=== PATIENT | female | born 1985 | race Hispanic/Latino ===

== ENCOUNTER 2016-12-20 08:09 | Emergency (ER) | payer MEDICAID ==
[2016-12-20 08:10] VITALS: BMI 22.3
[2016-12-20 08:19] VITALS: RESP 18
[2016-12-20 08:28] VITALS: O2SAT 98
[2016-12-20 08:51] LABS: URINE BILIRUBIN NEGATIVE (NEGATIVE); URINE BLOOD NEGATIVE (NEGATIVE); URINE GLUCOSE (UA) NEGATIVE (NEGATIVE); URINE KETONE 40 mg/dL (NEGATIVE); URINE LEUKOCYTE ESTERASE TRACE Leu/uL (NEGATIVE); URINE PROTEIN TRACE mg/dL (<30 mg/dL)
[2016-12-20 08:52] LABS: URINE APPEARANCE SL CLOUDY (CLEAR); URINE COLOR YELLOW (YELLOW)
[2016-12-20] MEDS ORDERED: Albuterol-Ipratrop 3 mg / 0.5 (3 ml) UD IH STA (09:00)
[2016-12-20 09:04] LABS: URINE WBC 0 - 2 /hpf (0-6)
[2016-12-20 09:05] LABS: URINE BACTERIA MOD (NEG); URINE CALCIUM OXALATE CRYSTALS OCC /hpf; URINE RBC 0 - 2 /hpf (0-2)
--- NOTE | 2016-12-20 09:05 | ED PDOC ---
Arrival/HPI - General Historian: Patient - History of Present Illness Time/Duration: > week Symptom Course: Worsening Quality: Cramping Severity Level: 6 - General Chief Complaint: Abdominal Pain Time Seen by Provider: 12/20/16 08:13 - History of Present Illness Narrative History of Present Illness (Text): 12/20/16 09:05 31 yo F w h/o Asthma, IVDA (heroin and cocaine - quit 1 month ago), Hep C, Bipolar disorder ~12weeks by LMP (09/12/16), presented to ED with c/o 3 week h/o intermittent lower abdominal cramping and spotting. Pain worsened 2 days ago and patient states she is more uncomfortable with ambulation and stretching. Patient states she passed small blood clots yesterday while urinating, and does not believe they were vaginal clots. Patient denies CP, SOB , n/v/d/c, fevers, chills, rashes. Patient admits to still actively smoking tobacco, states she stopped IVDA ~1 month ago. (Bell Baeza) Past Medical History - Provider Review Nursing Documentation Reviewed: Yes - Travel History Have you recently traveled outside [place] w/in the past 3 mons?: No - Past History Past History: No Previous - Infectious Disease Hx of Infectious Diseases: None - Tetanus Immunization Tetanus Immunization: Unknown - Cardiac Hx Cardiac Disorders: No Hx Cardiac Arrhythmia: No - Pulmonary Hx Respiratory Disorders: Yes Hx Asthma: Yes Hx Bronchitis: Yes Hx Chronic Obstructive Pulmonary Disease (COPD): No Hx Emphysema: No - Neurological Hx Neurological Disorder: No HX Cerebrovascular Accident: No Hx Seizures: No - HEENT Hx HEENT Disorder: No - Renal Hx Renal Disorder: No - Endocrine/Metabolic Hx Endocrine Disorders: No - Hematological/Oncological Hx Blood Disorders: No Hx Hepatitis C: Yes - Integumentary Hx Dermatological Disorder: No - Musculoskeletal/Rheumatological Hx Musculoskeletal Disorders: No - Gastrointestinal Hx Gastrointestinal Disorders: No - Genitourinary/Gynecological Hx Genitourinary Disorders: No Hx Sexually Transmitted Diseases: No - Psychiatric Hx Psychophysiologic Disorder: Yes Hx Anxiety: Yes Hx Depression: Yes Hx Substance Use: No - Past Surgical History Past Surgical History: No Previous - Surgical History Other/Comment: "bladder surgery during childhood" - Anesthesia Hx Anesthesia Reactions: No Hx Malignant Hyperthermia: No - Suicidal Assessment Feels Threatened In Home Enviroment: No Family/Social History Family/Social History: No Known Family HX Smoking Status: Heavy Smoker > 10 Cigarettes Daily Hx Alcohol Use: No Hx Substance Use: No Substance used: heroin, opiate user - pt stopped using approximately one month Amount: 4 Hx Substance Use Treatment: No Allergies/Home Meds Allergies/Adverse Reactions: Allergies Cephalosporins Allergy (Verified 12/20/16 08:19) SWELLING Home Medications: Home Meds Medication Instructions Recorded Confirmed Albuterol HFA [Ventolin HFA 90 2 puff IH PRN PRN 12/20/16 12/20/16 mcg/actuation (8 g)] Montelukast [Singulair] 10 mg PO DAILY 12/20/16 12/20/16 Review of Systems - Physician Review All systems were reviewed & negative as marked: Yes - Review of Systems Constitutional: Normal. absent: Fatigue Eyes: absent: Vision Changes Respiratory: absent: SOB (h/o asthma, no worsenend SOB), Cough Cardiovascular: absent: Chest Pain, Palpitations, Calf Pain, V[place]VA Gastrointestinal: Abdominal Pain (lower). absent: Constipation, Diarrhea, Nausea, Vomiting Genitourinary Female: Vaginal Bleeding (spotting). absent: Dysuria Musculoskeletal: absent: Back Pain Skin: absent: Rash, Skin Lesions Neurological: absent: Headache, Dizziness Physical Exam Temperature: Afebrile Blood Pressure: Normal Pulse: Regular Respiratory Rate: Normal Appearance: Positive for: Well-Appearing, Non-Toxic, Comfortable Pain Distress: None Mental Status: Positive for: Alert and Oriented X 3 - Systems Exam Head: Present: Atraumatic, Normocephalic Pupils: Present: PERRL Extroacular Muscles: Present: EOMI Conjunctiva: Present: Normal Ears: Present: Normal Mouth: Present: Moist Mucous Membranes Neck: Present: Normal Range of Motion. No: Meningeal Signs, JVD Respiratory/Chest: Present: Good Air Exchange, Wheezes (mild diffuse end-exp). No: Clear to Auscultation, Respiratory Distress, Accessory Muscle Use, Rales, Rhonchi Cardiovascular: Present: Regular Rate and Rhythm, Normal S1, S2. No: Murmurs Abdomen: Present: Tenderness (suprapubic), Normal Bowel Sounds. No: Distention , Peritoneal Signs, Rebound, Guarding, McBurney's Point Tender Genitourinary/Pelvic Exam: Present: Normal External Genitalia, Cervical os Closed. No: Vaginal Bleeding, Cervical Motion Tendernes Back: No: CVA Tenderness Upper Extremity: Present: Normal Inspection, NORMAL PULSES, Capillary Refill < 2s. No: Cyanosis, Edema Lower Extremity: Present: Normal Inspection, NORMAL PULSES, Neurovascularly Intact. No: Edema, CALF TENDERNESS Neurological: Present: GCS=15, CN II-XII Intact, Speech Normal Skin: Present: Warm, Dry, Normal Color. No: Rashes Psychiatric: Present: Alert, Oriented x 3, Normal Concentration Vital Signs Temp Pulse Resp BP Pulse Ox 12/20/16 11:02 79 18 114/68 98 12/20/16 09:29 97.8 F 89 18 112/61 98 12/20/16 08:28 97.1 F L 90 18 114/64 98 12/20/16 08:12 97.1 F L 90 18 114/64 100 Medical Decision Making - Lab Interpretations I have reviewed the lab results: Yes ED Course and Treatment: Patient seen and examined with resident Came up with treatment and disposition plan with resident A 31 year old female with intermittent lower abdominal cramping and vaginal spotting. In agreement with resident note, which includes further HPI details. Patient had no blood noted on speculum examination and no vaginal bleeding in the ER US IMPRESSION: Single live intrauterine gestation of approximately 16 weeks 1 day gestational age by ultrasound. Anterior placenta. No evidence of placenta previa. Cervix long and closed. Normal amniotic fluid volume. Please note that the head circumference/abdominal circumference ratio is above the normal range. Followup during 2nd trimester is advised. Full anatomic evaluation is advised at approximately 20 weeks gestational age. Incidentally noted 2 uterine fibroids. On discharge, pt states she understands to return to the ER right away for new or worsening symptoms or for inability to f/u with PMD or specialist as instructed. Patient states that she fully agrees with and understands discharge instructions. States that she agrees with the plan and disposition. Verbalized and repeated discharge instructions and plan. I have given the patient opportunity to ask any additional questions. (Pollo Olvera) 12/20/16 09:32 31 yo F w h/o Asthma, IVDA (heroin and cocaine - quit 1 month ago), Hep C, Bipolar disorder ~12weeks by LMP (09/12/16) presented with lower abdominal pain and vaginal spotting. UA, C&S, transvaginal US with age estimation, chlamydia and gonorrhea RNA, labs, quant bHCG. Duonebs for wheezing, IVF. Patient extensively counseled regarding need for immediate smoking cessation for cardiovascular and overall health protection as well as wellbeing. Instructed to take vitamins and maintain abstinence from IV drugs for health and development. 12/20/16 11:39 US shows since viable intrauterine gestation ~16 weeks 1 day, anterior placenta, no evidence of placenta previa, cervix long and closed, normal amniotic fluid volume, head/abdominal circumference ration above normal range, 2 incidental uterine fibroids noted. Patient re-evaluated. States she no longer has any abdominal pain. Denies CP, SOB, n/v. 12/20/16 11:43 UTI diagnosis discussed. All questions answered. 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 (Bell Baeza) - Lab Interpretations Lab Results: 12/20/16 10:50 12/20/16 10:50 Lab Results 12/20/16 10:50: WBC 6.7, RBC 4.40, Hgb 9.4 L, Hct 28.6 L, MCV 65.0 L, MCH 21.4 L , MCHC 32.9, RDW 16.1 H, Plt Count 232, MPV 8.5, Gran % 56.9, Lymph % (Auto) 32.4, [place] % (Auto) 7.0 H, Eos % (Auto) 3.6, Baso % (Auto) 0.1, Gran # 3.81, Lymph # 2.2, [place] # 0.5, Eos # 0.2, Baso # 0.01, PT 10.6, INR 0.98, APTT 30.2, Sodium 130 L, Potassium 3.7, Chloride 97 L, Carbon Dioxide 27, Anion Gap 10, BUN 3 L, Creatinine 0.5, Est GFR ( Amer) > 60, Est GFR (Non-Af Amer) > 60 , Random Glucose 86, Calcium 8.4, Total Bilirubin 0.4, AST 22, ALT 28, Alkaline Phosphatase 72, Total Protein 6.5, Albumin 3.2, Globulin 3.4, Albumin/Globulin Ratio 0.9 L, Beta HCG, Quant 02153.00 H, Blood Type O POSITIVE, Antibody Screen Negative, BBK History Checked Patient has bt 12/20/16 08:00: Urine Color Yellow, Urine Appearance Sl cloudy, Urine pH 6.0, Ur Specific [place] 1.025, Urine Protein Trace H, Urine Glucose (UA) Negative, Urine Ketones 40 H, Urine Blood Negative, Urine Nitrate Positive H, Urine Bilirubin Negative, Urine Urobilinogen 1.0 H, Ur Leukocyte Esterase Trace H, Urine RBC 0 - 2, Urine WBC 0 - 2, Ur Epithelial Cells 6 - 8, Calcium Oxalate Crystal Occ, Urine Bacteria Mod - RAD Interpretation Radiology Orders: 12/20/16 08:35 AGE [US] Stat - Medication Orders Current Medication Orders: Discontinued Medications Albuterol/Ipratropium (Duoneb 3 Mg/0.5 Mg (3 Ml) Ud) 3 ml IH STAT STA Stop: 12/20/16 09:01 Last Admin: 12/20/16 09:29 Dose: 3 ML Sodium Chloride (Sodium Chloride 0.9%) 1,000 mls @ 999 mls/hr IV .Q1H1M STA Stop: 12/20/16 10:34 Disposition/Present on Arrival - Present on Arrival Any Indicators Present on Arrival: No History of DVT/PE: No History of Uncontrolled Diabetes: No Urinary Catheter: No History of Decub. Ulcer: No History Surgical Site Infection Following: None - Disposition Have Diagnosis and Disposition been Completed?: Yes Disposition Time: 11:00 - Disposition Diagnosis: UTI (urinary tract infection), Smoker Disposition: HOME/ ROUTINE Condition: STABLE Discharge Instructions (ExitCare): Effects of Smoking, Alcohol, and Medicines on (ED), How to Stop Smoking (ED), Urinary Tract Infection in Women (ED) Print Language: MALTESE Additional Instructions: Please followup with your primary care physician within 1-3 days. Please followup with Obsterics/gynecology within 1-2 days. As per earlier conversations, please refrain from tobacco, etOH and drug use especially while . Prescriptions: Nitrofurantoin Macrocrystal [Nitrofurantoin] 100 mg PO BID #10 capsule Referrals: Ora Tavera MD [Primary Care Provider] - Follow up with primary Ban Jeronimo MD [Staff Provider] - Follow up with primary
[2016-12-20 09:30] VITALS: TEMP 97.8
[2016-12-20] MEDS ORDERED: Sodium Chloride 0.9% 1,000 ML IV STA (09:34)
--- NOTE | 2016-12-20 10:46 | US ---
PROCEDURE: Obstetrical ultrasound examination HISTORY: , bleeding COMPARISON: Not available TECHNIQUE: Transabdominal FINDINGS: The examination demonstrates a single live intrauterine gestation in variable presentation. heart rate is 139 beats per minute. The cervix is long and closed, measuring 5.3 cm. Grossly normal amniotic fluid volume. Anterior placenta. No evidence placenta previa. biometry yields a gestational age of 16 weeks 1 day. The DORIS by ultrasound is 06/05/2017. The EFW is 129.18 g. please note that the head circumference/abdominal circumference ratio is above normal range. Followup evaluation during 2nd trimester is advised. Please note that anatomic evaluation is not performed at this time. Recommend full anatomic evaluation at 20 weeks gestational age. Note is made of 2 uterine fibroids. There is an anterior lower uterine segment fibroid, 3.1 x 3.4 x 3.5 cm. There is a midline lower uterine segment fibroid, 6.3 x 7.7 x 8.7 cm. The right ovary is not visualized. The left ovary measures 2.5 x 2.6 x 2.9 cm. Normal flow is demonstrated. IMPRESSION: Single live intrauterine gestation of approximately 16 weeks 1 day gestational age by ultrasound. Anterior placenta. No evidence of placenta previa. Cervix long and closed. Normal amniotic fluid volume. Please note that the head circumference/abdominal circumference ratio is above the normal range. Followup during 2nd trimester is advised. Full anatomic evaluation is advised at approximately 20 weeks gestational age. Incidentally noted 2 uterine fibroids.
[2016-12-20 10:58] LABS: ADD MANUAL DIFF? NO
[2016-12-20 11:02] VITALS: BP 114/68; PULSE 79
[2016-12-20 11:05] LABS: BASO # 0.01 K/mm3 (0.0-2.0); BASO % 0.1 % (0.0-3.0); EOS # 0.2 (0.0-0.7); EOS % 3.6 % (1.5-5.0); GRAN # 3.81 (1.4-6.5); GRAN % 56.9 % (50.0-68.0); HEMATOCRIT 28.6 % (36.0-48.0); LYMPH # 2.2 (1.2-3.4); LYMPH % 32.4 % (22.0-35.0); MEAN CORPUSCULAR HEMOGLOBIN 21.4 pg (25.0-35.0); MEAN CORPUSCULAR HGB CONC 32.9 g/dl (31.0-37.0); MEAN PLATELET VOLUME 8.5 fl (7.0-11.0); MONO # 0.5 (0.1-0.6); PLATELET COUNT 232 10^3/uL (120.0-450.0); RED CELL DISTRIBUTION WIDTH 16.1 % (11.5-14.5); WHITE BLOOD COUNT 6.7 10^3/ul (4.5-11.0)
[2016-12-20 11:10] LABS: INR 0.98 (0.93-1.08); PARTIAL THROMBOPLASTIN TIME 30.2 Seconds (23.7-30.8)
[2016-12-20 11:12] LABS: ALB/GLOB RATIO 0.9 (1.1-1.8); ALKALINE PHOSPHATASE 72 U/L (38-133); ALT/SGPT 28 U/L (7-56); AST/SGOT 22 U/L (15-39); BILIRUBIN,TOTAL 0.4 mg/dL (0.2-1.3); BLOOD UREA NITROGEN 3 mg/dL (7-21); CALCIUM 8.4 mg/dL (8.4-10.5); CARBON DIOXIDE 27 mmol/L (21-33); CHLORIDE 97 mmol/L (98-107); GFR AFRICAN-AMERICAN > 60; GLUCOSE,RANDOM 86 mg/dL (70-110); POTASSIUM 3.7 mmol/L (3.6-5.0); SODIUM 130 mmol/L (132-148); TOTAL PROTEIN 6.5 g/dL (5.8-8.3)
== END 2016-12-20 12:00 | disposition home or self-care (01) ==
LOC: ED 08:09
DX: N39.0 Urinary tract infection, site not specified (principal); F17.210 Nicotine dependence, cigarettes, uncomplicated

== ENCOUNTER 2016-12-27 21:56 | Emergency (ER) | payer MEDICAID ==
[2016-12-27 22:11] VITALS: RESP 20; O2SAT 99; BMI 21.2
--- NOTE | 2016-12-27 22:13 | ED PDOC ---
Arrival/HPI - History of Present Illness Time/Duration: 24 hours Symptom Onset: Gradual Symptom Course: Worsening Quality: Aching, Tightness, Stabbing Severity Level: 9 Activities at Onset: Light <Bell Baeza - Last Filed: 12/28/16 00:16> <Pollo Olvera - Last Filed: 12/28/16 04:37> - General Chief Complaint: Female Genitourinary Time Seen by Provider: 12/27/16 22:02 - History of Present Illness Narrative History of Present Illness (Text): 12/27/16 22:22 31 yo F w h/o Asthma, IVDA (heroin and cocaine - relapsed within the past week) , Hep C, Bipolar disorder 17 weeks 1 day by US 12/20, presented to ED with c/o 1 day h/o lower abdominal cramping and vaginal bleeding since this evening. Patient was seen in this ER one week ago (12/20/2016) for lower abdominal cramping and light spotting and discharged with UTI dx on Nitrofurantoin and instructions to followup with her PMD and obstetrics. Patient states she has not been taking her antibiotics regularly and has not followed up; attempted to obtain elective but was unable to do so because she was told she had masses in her uterus (2 fibroids seen on Transvaginal US 12/20). Patient states she was not using drugs during the prior month but relapsed 1 week ago and has been using IV heroin and cocaine. She admits to intermittent fevers and chills for the past day, 2 episodes of non- bloody emesis, and passing blood clots with vaginal blood. She denies CP, SOB, diarrhea, constipation, rashes, edema. (Bell Baeza) Past Medical History - Provider Review Nursing Documentation Reviewed: Yes - Travel History Have you recently traveled outside [place] w/in the past 3 mons?: No - Past History Past History: No Previous - Infectious Disease Hx of Infectious Diseases: None - Tetanus Immunization Tetanus Immunization: Unknown - Cardiac Hx Cardiac Disorders: No Hx Cardiac Arrhythmia: No - Pulmonary Hx Respiratory Disorders: Yes Hx Asthma: Yes Hx Bronchitis: Yes Hx Chronic Obstructive Pulmonary Disease (COPD): No Hx Emphysema: No - Neurological Hx Neurological Disorder: No HX Cerebrovascular Accident: No Hx Seizures: No - HEENT Hx HEENT Disorder: No - Renal Hx Renal Disorder: No - Endocrine/Metabolic Hx Endocrine Disorders: No - Hematological/Oncological Hx Blood Disorders: No Hx Hepatitis C: Yes - Integumentary Hx Dermatological Disorder: No - Musculoskeletal/Rheumatological Hx Musculoskeletal Disorders: No - Gastrointestinal Hx Gastrointestinal Disorders: No - Genitourinary/Gynecological Hx Genitourinary Disorders: No Hx Sexually Transmitted Diseases: No - Psychiatric Hx Psychophysiologic Disorder: Yes Hx Anxiety: Yes Hx Depression: Yes Hx Substance Use: No - Past Surgical History Past Surgical History: No Previous - Surgical History Other/Comment: "bladder surgery during childhood" - Anesthesia Hx Anesthesia: No Hx Anesthesia Reactions: No Hx Malignant Hyperthermia: No - Suicidal Assessment Feels Threatened In Home Enviroment: No <Bell Baeza - Last Filed: 12/28/16 00:16> Family/Social History Family/Social History: Hypertension, CAD/MT Smoking Status: Heavy Smoker > 10 Cigarettes Daily Hx Alcohol Use: No Hx Substance Use: No Substance used: heroin, opiate user - pt stopped using approximately one month Amount: 4 Hx Substance Use Treatment: No <Bell Baeza - Last Filed: 12/28/16 00:16> Allergies/Home Meds <Bell Baeza - Last Filed: 12/28/16 00:16> <Pollo Olvera - Last Filed: 12/28/16 04:37> Allergies/Adverse Reactions: Allergies Cephalosporins Allergy (Verified 12/20/16 08:19) SWELLING Home Medications: Home Meds Medication Instructions Recorded Confirmed Albuterol HFA [Ventolin HFA 90 2 puff IH PRN PRN 12/20/16 12/20/16 mcg/actuation (8 g)] Montelukast [Singulair] 10 mg PO DAILY 12/20/16 12/20/16 Review of Systems - Physician Review All systems were reviewed & negative as marked: Yes - Review of Systems Constitutional: Fevers. absent: Fatigue Eyes: absent: Vision Changes, Photophobia ENT: Normal Respiratory: Cough (nonproductive, ). absent: SOB, Sputum Cardiovascular: absent: Chest Pain, Palpitations, Edema, Calf Pain, VILLANUEVA Gastrointestinal: Abdominal Pain (lower cramping), Nausea, Vomiting, Anorexia. absent: Constipation, Diarrhea, Hematochezia, Hematemesis Genitourinary Female: Vaginal Bleeding (with clots). absent: Dysuria, Frequency , Hematuria Skin: absent: Rash, Skin Lesions Neurological: absent: Headache, Dizziness Endocrine: absent: Diaphoresis, Polyuria, Polydipsia Hemo/Lymphatic: absent: Easy Bleeding, Easy Bruising <Bell Baeza - Last Filed: 12/28/16 00:16> Physical Exam Vital Signs Reviewed: Yes Temperature: Febrile (low-grade 100F) Blood Pressure: Normal Pulse: Tachycardic Respiratory Rate: Normal Appearance: Positive for: Non-Toxic, Uncomfortable Pain Distress: Mild Mental Status: Positive for: Alert and Oriented X 3 - Systems Exam Head: Present: Atraumatic, Normocephalic Pupils: Present: PERRL Extroacular Muscles: Present: EOMI Conjunctiva: Present: Normal Ears: Present: Normal Mouth: Present: Dry Neck: Present: Normal Range of Motion. No: Meningeal Signs, JVD Respiratory/Chest: Present: Clear to Auscultation, Good Air Exchange. No: Respiratory Distress, Accessory Muscle Use, Wheezes, Rhonchi Cardiovascular: Present: Regular Rate and Rhythm, Normal S1, S2, Peripheal Pulses Present. No: Murmurs, Irregular Rhythm, Tachycardic (130s during triage -- 80s during physician exam) Abdomen: Present: Tenderness (lower abdomen), Normal Bowel Sounds. No: Distention, Peritoneal Signs Back: No: CVA Tenderness Upper Extremity: Present: Normal Inspection. No: Cyanosis, Edema Lower Extremity: Present: Normal Inspection. No: Edema Neurological: Present: GCS=15, CN II-XII Intact, Speech Normal Skin: Present: Warm, Dry, Normal Color. No: Rashes Psychiatric: Present: Alert, Oriented x 3, Normal Concentration <Bell Baeza - Last Filed: 12/28/16 00:16> Vital Signs Temp Pulse Resp BP Pulse Ox 12/27/16 23:41 99.9 F H 101 H 20 111/83 99 12/27/16 22:55 100.0 F H 12/27/16 22:03 100 F H 134 H 20 121/80 99 Medical Decision Making Re-evaluation Time: 23:35 Reassessment Condition: Improved - Lab Interpretations I have reviewed the lab results: Yes <Bell Baeza - Last Filed: 12/28/16 00:16> - RAD Interpretation Shoeshiner: Radiologist <NonarichyPollo - Last Filed: 12/28/16 04:37> ED Course and Treatment: 12/27/16 22:38 31 yo F with h/o active IVDA, tobacco abuse, asthma and bipolar disorder, 17weeks presents with worsening lower abdominal pain and cramping and significant vaginal bleeding x 1 day. Patient has low-grade temp 100F, HD stable. Plan: Transvag US CBC, CMP, Type and Screen, blood cultures, coags, UA, UDS Tylenol IVF 12/27/16 23:37 US shows approx 16weeks 6 day viable intrauterine , closed cervical os, anterior placenta, no sign of abruption. Patient refuses pelvic exam at this time. 12/27/16 23:[address] Jeronimo, Gynecology plastics fabrication supervisor. Case thoroughly discussed. Dr. Jeronimo recommends immediate drug and tobacco abuse cessation, does not indicate any need for antibiotics at this time, silk screen repairer followup within 1-2 days. She feels as the patient's symptoms may be due to early placental abruption, however not much to do at this time since the patient continues to refuse pelvic exam. Recommends discharge with outpatient silk screen repairer followup. 12/28/16 00:06 Patient is clinically sober, has normal insight into her condition, boyfriend and friend at bedside. States her pain has slightly improved, bleeding marginally improved since this morning. Discussed clinical findings, thoroughly counseled regarding need for immediate smoking and drug abuse cessation. Patient still refuses pelvic examination, refuses further treatment, and refuses to sign AMA paperwork. RN at bedside and aware. Patient left AMA without signing paperwork. (Bell Baeza) 12/27/16 22:56 Patient seen and examined with resident. Came up with treatment and disposition plan with resident. Patient is a 31 year old, 17 wk 1d female who presents to the emergency department complaining of 1 day duration of lower abdominal cramps and vaginal bleeding. Patient with a history of IV drug use, started using again 1 week prior. Patient attempted to obtain an , but was unable due to uterine fibroids. Ordered drug screen, urinalysis, ultrasound, and blood culture. 12/28/16 00:27 US shows live intrauterine . Case was discussed in detail with the OB plastics fabrication supervisor who was concerned about a possible placenta abruption, but treatment limited because patient is refusing a pelvic exam. Patient and boyfriend want to sign out against medical advice. I've strongly urged them to stay in the hospital for the completion of treatment, but they verbalized their understanding of the risks of the the hospital and are adamant in their decision. Advised patient was advised to immediately stop tobacco/illicit substance use. Advised patient to present back to emergency department for any worsening symptoms. The patient is choosing to leave against medical advice. I have personally explained to the patient that choosing to do so may result in permanent bodily harm or to herself or her baby. I have discussed at great length that without further evaluation and monitoring there may be unforeseen circumstances and/or deterioration causing permanent bodily harm or as a result of their choice. The patient is alert, oriented, and shows the mental capacity to make clear decisions regarding the patients health care at this time. The patient continues to wish to leave against medical advice. The patient has been advised that they should return to the emergency room immediately if they change their mind at any time, or if their condition begins to change or worsen in any way. (Pollo Olvera) - Lab Interpretations Lab Results: 12/27/16 22:47 12/27/16 22:47 Lab Results 12/27/16 23:30: Urine Color Light red, Urine Appearance Cloudy, Urine pH 6.5, Ur Specific [place] 1.025, Urine Protein >=300 H, Urine Glucose (UA) Negative, Urine Ketones >=80, Urine Blood Large H, Urine Nitrate Positive H, Urine Bilirubin Negative, Urine Urobilinogen 4.0 H, Ur Leukocyte Esterase Moderate H, Urine RBC 25 - 30, Urine WBC 15 - 20, Ur Epithelial Cells 0 - 2, Urine Bacteria Mod, Urine Opiates Screen Positive H, Urine Methadone Screen Negative, Ur Barbiturates Screen Negative, Ur Phencyclidine Scrn Negative, Ur Amphetamines Screen Negative, U Benzodiazepines Scrn Negative, U Oth Cocaine Metabols Positive H, U Cannabinoids Screen Negative 12/27/16 22:47: WBC 11.2 H D, RBC 5.01, Hgb 10.8 L, Hct 32.2 L, MCV 64.3 L, MCH 21.6 L, MCHC 33.5, RDW 15.8 H, Plt Count 316, MPV 8.8, Gran % 80.6 H, Lymph % ( Auto) 15.9 L, Campbell % (Auto) 3.0, Eos % (Auto) 0.4 L, Baso % (Auto) 0.1, Gran # 9.01 H, Lymph # 1.8, Campbell # 0.3, Eos # 0.1, Baso # 0.01, PT 10.4, INR 0.96, APTT 32.2 H, Sodium 131 L, Potassium 4.2, Chloride 94 L, Carbon Dioxide 26, Anion Gap 15, BUN 5 L, Creatinine 0.5, Est GFR ( Amer) > 60, Est GFR (Non -Af Amer) > 60, Random Glucose 78, Calcium 8.9, Total Bilirubin 0.7, AST 22, ALT 21, Alkaline Phosphatase 124, Total Protein 7.8, Albumin 3.6, Globulin 4.2, Albumin/Globulin Ratio 0.9 L, Blood Type O POSITIVE, Antibody Screen Negative, BBK History Checked Patient has bt - RAD Interpretation Narrative RAD Interpretations (Text): EXAM: US After First Trimester, Transabdominal FINDINGS: Fetus: Transverse and position. Heart rate measured at 169 bpm. No anatomic evaluation performed on this study. Placenta: Anterior. No evidence of abruption. BIOMETRICS Gestational age by US: 16 weeks 6 days +/- 1 week 1 day EFW: 6 oz +/- 1 oz BPD: 3.5 cm HC: 13.3 cm AC: 10.8 cm FL: 2.2 cm MATERNAL: Uterus: Fibroids measured at 3.8 cm in region of anterior lower uterine segment and 8.2 cm in lower uterine segment. Cervix: Measured at 5.6 cm. Closed. Adnexa: Right ovary not visualized. Unremarkable evaluation of the left ovary. Free fluid: No free fluid. IMPRESSION: Live intrauterine with details as above. (Pollo Olvera) Radiology Orders: 12/27/16 22:19 AGE [US] Stat - Medication Orders Current Medication Orders: Discontinued Medications Acetaminophen (Tylenol 325mg Tab) 650 mg PO STAT STA Stop: 12/27/16 22:21 Last Admin: 12/27/16 22:55 Dose: 650 MG MAR Pain/Vitals Document 12/27/16 22:55 SB (Rec: 12/27/16 22:56 SB [facility] [place]-[id number]) Pain Reassessment Is This A Pain ReAssessment? No Sleep Is patient sleeping during reassessment? No Presence of Pain Presence of Pain Yes Pain Scale Used Pain Scale Used Numeric Location Upper or Lower Lower Pain Location Body Site Abdomen Vitals Temperature (97.6 F-99.6 F) 100.0 F Temperature Source Oral Sodium Chloride (Sodium Chloride 0.9%) 1,000 mls @ 999 mls/hr IV .Q1H1M STA Stop: 12/27/16 23:20 Last Admin: 12/27/16 22:55 Dose: 999 MLS/HR eMAR Start Stop Document 12/27/16 22:55 SB (Rec: 12/27/16 22:55 SB [facility] [place]-[id number]) Intravenous Solution Start Date 12/27/16 Start Time 22:55 End Date 12/27/16 <Bell Baeza - Last Filed: 12/28/16 00:16> - PA / STORE CLERK / Resident Statement [facility] has reviewed & agrees with the documentation as recorded. / has examined the patient and agrees with the treatment plan. <Pollo Olvera - Last Filed: 12/28/16 04:37> - Scribe Statement Ed Hernandez Provider Scribe Attestation: All medical record entries made by the Scribe were at my direction and personally dictated by me. I have reviewed the chart and agree that the record accurately reflects my personal performance of the history, physical exam, medical decision making, and the department course for this patient. I have also personally directed, reviewed, and agree with the discharge instructions and disposition. (Pollo Olvera) Disposition/Present on Arrival - Present on Arrival Any Indicators Present on Arrival: No History of DVT/PE: No History of Uncontrolled Diabetes: No Urinary Catheter: No History of Decub. Ulcer: No History Surgical Site Infection Following: None - Disposition Have Diagnosis and Disposition been Completed?: Yes Disposition Time: 00:09 Patient Plan: Discharge <Bell Baeza - Last Filed: 12/28/16 00:16> <Pollo Olvera - Last Filed: 12/28/16 04:37> - Disposition Diagnosis: Vaginal bleeding before 22 weeks gestation, Cocaine abuse affecting , Tobacco abuse Disposition: AGAINST MEDICAL ADVICE Condition: FAIR Discharge Instructions (ExitCare): Cocaine Abuse (ED), Threatened Miscarriage ( ED), How to Stop Smoking (ED) Print Language: DOMINICAN Additional Instructions: Please followup with your primary care physician within 1-3 days. Please followup with silk screen repairer within 1-2 days. Referrals: Ora Tavera MD [Primary Care Provider] - Follow up with primary Ban Jeronimo MD [Staff Provider] - Follow up with primary
[2016-12-27] MEDS ORDERED: Sodium Chloride 0.9% 1,000 ML IV STA (22:20)
[2016-12-27 22:57] LABS: ADD MANUAL DIFF? NO
[2016-12-27 23:08] LABS: BASO # 0.01 K/mm3 (0.0-2.0); BASO % 0.1 % (0.0-3.0); EOS # 0.1 (0.0-0.7); EOS % 0.4 % (1.5-5.0); GRAN # 9.01 (1.4-6.5); GRAN % 80.6 % (50.0-68.0); HEMATOCRIT 32.2 % (36.0-48.0); LYMPH # 1.8 (1.2-3.4); LYMPH % 15.9 % (22.0-35.0); MEAN CELL VOLUME 64.3 fL (80.0-105.0); MEAN CORPUSCULAR HEMOGLOBIN 21.6 pg (25.0-35.0); MEAN CORPUSCULAR HGB CONC 33.5 g/dl (31.0-37.0); MEAN PLATELET VOLUME 8.8 fl (7.0-11.0); MONO # 0.3 (0.1-0.6); PLATELET COUNT 316 10^3/uL (120.0-450.0); RED CELL DISTRIBUTION WIDTH 15.8 % (11.5-14.5); WHITE BLOOD COUNT 11.2 10^3/ul (4.5-11.0)
[2016-12-27 23:10] LABS: ALB/GLOB RATIO 0.9 (1.1-1.8); ALKALINE PHOSPHATASE 124 U/L (38-133); ALT/SGPT 21 U/L (7-56); AST/SGOT 22 U/L (15-39); BILIRUBIN,TOTAL 0.7 mg/dL (0.2-1.3); BLOOD UREA NITROGEN 5 mg/dL (7-21); CALCIUM 8.9 mg/dL (8.4-10.5); CARBON DIOXIDE 26 mmol/L (21-33); CHLORIDE 94 mmol/L (98-107); GFR AFRICAN-AMERICAN > 60; GLUCOSE,RANDOM 78 mg/dL (70-110); POTASSIUM 4.2 mmol/L (3.6-5.0); SODIUM 131 mmol/L (132-148); TOTAL PROTEIN 7.8 g/dL (5.8-8.3)
[2016-12-27 23:11] LABS: INR 0.96 (0.93-1.08); PARTIAL THROMBOPLASTIN TIME 32.2 Seconds (23.7-30.8)
--- NOTE | 2016-12-27 23:30 | US ---
EXAM: US After First Trimester, Transabdominal CLINICAL HISTORY: 31 years old, female; Pain; complicated by abdominal or pelvic pain; Lower; Second trimester; Gestational age or lmp: [id number]; ; Additional info: Vaginal bleeding, 17 weks TECHNIQUE: Real-time transabdominal obstetrical ultrasound of the maternal pelvis and a second or third trimester with image documentation. COMPARISON: US - AGE 412/20/2016 10:01:20 AM FINDINGS: Fetus: Transverse and position. Heart rate measured at 169 bpm. No anatomic evaluation performed on this study. Placenta: Anterior. No evidence of abruption. BIOMETRICS Gestational age by US: 16 weeks 6 days +/- 1 week 1 day EFW: 6 oz +/- 1 oz BPD: 3.5 cm HC: 13.3 cm AC: 10.8 cm FL: 2.2 cm MATERNAL: Uterus: Fibroids measured at 3.8 cm in region of anterior lower uterine segment and 8.2 cm in lower uterine segment. Cervix: Measured at 5.6 cm. Closed. Adnexa: Right ovary not visualized. Unremarkable evaluation of the left ovary. Free fluid: No free fluid. IMPRESSION: Live intrauterine with details as above.
[2016-12-27 23:40] LABS: PH,URINE 6.5 (4.7-8.0); URINE BILIRUBIN NEGATIVE (NEGATIVE); URINE BLOOD LARGE (NEGATIVE); URINE GLUCOSE (UA) NEGATIVE (NEGATIVE); URINE KETONE >=80 mg/dL (NEGATIVE); URINE LEUKOCYTE ESTERASE MODERATE Leu/uL (NEGATIVE); URINE PROTEIN >=300 mg/dL (<30 mg/dL)
[2016-12-27 23:42] VITALS: BP 111/83; PULSE 101; TEMP 99.9
[2016-12-27 23:51] LABS: URINE APPEARANCE CLOUDY (CLEAR); URINE COLOR LIGHT RED (YELLOW)
[2016-12-28 00:15] LABS: URINE BACTERIA MOD (NEG); URINE EPITHELIAL CELLS 0 - 2 /hpf (0-5); URINE RBC 25 - 30 /hpf (0-2); URINE WBC 15 - 20 /hpf (0-6)
== END 2016-12-28 00:05 | disposition left against medical advice (07) ==
LOC: ED 21:56
DX: O46.92 Antepartum hemorrhage, unspecified, second trimester (principal); Z3A.16 16 weeks gestation of pregnancy; F14.10 Cocaine abuse, uncomplicated; Z72.0 Tobacco use
CPT/HCPCS: 76815; 80053; 80324; 80345; 80346; 80349; 80353; 80358; 80361; 81001; 83992; 85025; 85610; 85730; 86850; 86900; 87040; 87086; 87149; 87181; 87205; 99284; J7040

== ENCOUNTER 2017-01-04 20:07 | Inpatient (IN) | payer MEDICAID ==
[2017-01-04 20:12] VITALS: BMI 23.0
[2017-01-04] MEDS ORDERED: Vancomycin 1gm in NS 250ml 1 GM/250 ML BAG IVPB STA (20:35)
--- NOTE | 2017-01-04 20:42 | ED PDOC ---
Arrival/HPI - General Chief Complaint: Palpitations Time Seen by Provider: 01/04/17 20:34 Historian: Patient - History of Present Illness Narrative History of Present Illness (Text): 01/04/17 20:37 A 31 year old female presents to the emergency room with complaints of chest discomfort described as tightness for 1 day. Patient also notes bilateral lower extremity swelling and feels like her face is swollen as well. Patient denies any dyspnea on exertion, shortness of breath, headaches, or dizziness. Patient states that vaginal bleeding has resolve. Patient denies abdominal pain, nausea , vomiting, diarrhea, or any other complaints. Time/Duration: 24 hours Symptom Onset: Sudden Symptom Course: Unchanged Quality: Tightness Severity Level: Moderate Activities at Onset: Light Context: Home Past Medical History - Provider Review Nursing Documentation Reviewed: Yes - Past History Past History: No Previous - Infectious Disease Hx of Infectious Diseases: None - Tetanus Immunization Tetanus Immunization: Unknown - Cardiac Hx Cardiac Disorders: No Hx Cardiac Arrhythmia: No - Pulmonary Hx Respiratory Disorders: Yes Hx Asthma: Yes Hx Bronchitis: Yes Hx Pneumonia: Yes - Neurological Hx Neurological Disorder: No - HEENT Hx HEENT Disorder: Yes (eyeglasses) - Renal Other/Comment: pylenephritis - Endocrine/Metabolic Hx Endocrine Disorders: No - Hematological/Oncological Hx Blood Disorders: No Hx Hepatitis C: Yes - Integumentary Hx Dermatological Disorder: No Other/Comment: multiple tatoos - Musculoskeletal/Rheumatological Hx Falls: No - Gastrointestinal Hx Gastrointestinal Disorders: Yes (acute colitis, abd pain, constipation) - Genitourinary/Gynecological Hx Genitourinary Disorders: (fibroids) Hx Urinary Tract Infection: Yes - Psychiatric Hx Psychophysiologic Disorder: Yes Hx Anxiety: Yes Hx Bipolar Disorder: Yes Hx Depression: Yes Hx Substance Use: Yes (heroin/opiates stopped 1 mo ago) - Past Surgical History Past Surgical History: No Previous - Surgical History Other/Comment: "bladder surgery during childhood", reflux reimplantation tube from bladder to r kidney - Anesthesia Hx Anesthesia: No Hx Anesthesia Reactions: No Hx Malignant Hyperthermia: No - Suicidal Assessment Feels Threatened In Home Enviroment: No Family/Social History - Physician Review Nursing Documentation Reviewed: Yes Family/Social History: No Known Family HX Smoking Status: Heavy Smoker > 10 Cigarettes Daily Hx Alcohol Use: Yes (stopped 1 mo ago) Hx Substance Use: Yes (heroin/opiates stopped 1 mo ago) Substance used: heroin, opiate user - pt stopped using approximately one month Amount: 4 Hx Substance Use Treatment: No Allergies/Home Meds Allergies/Adverse Reactions: Allergies Cephalosporins Allergy (Verified 01/04/17 20:12) SWELLING Home Medications: Home Meds Medication Instructions Recorded Confirmed Albuterol HFA [Ventolin HFA 90 2 puff IH PRN PRN 12/29/16 01/04/17 mcg/actuation (8 g)] Montelukast [Singulair] 10 mg PO DAILY 12/29/16 01/04/17 Physical Exam - Physical Exam Narrative Physical Exam (Text): 01/04/17 20:43 - Review of Systems Constitutional: Normal. absent: Fatigue, Weight Change, Fevers Eyes: Normal ENT: Normal Respiratory: Normal absent: SOB, Cough, Sputum Cardiovascular: Chest discomfort (tightness) absent: Palpitations, Syncope Gastrointestinal: Normal absent: Abdominal pain, Diarrhea, Nausea, Vomiting Genitourinary: Normal. absent: Dysuria, Frequency, Hematuria Musculoskeletal: Bilateral lower extremity swelling, Facial swelling. absent: Arthralgias, Back Pain, Neck Pain Skin: Normal Neurological: Normal absent: Focal Weakness Endocrine: Normal Hemo/Lymphatic: Normal Psychiatric: Normal - Physical exam Patient appears age appropriate, speaking full sentences without difficulty - Systems Exam Head: Present: Atraumatic, Normocephalic Pupils: Present: PERRL Extraocular Muscles: Present: EOMI Conjunctiva: Present: Normal Mouth: Present: Moist Mucous Membranes Neck: Present: Normal Range of Motion. No: MIDLINE TENDERNESS, Paraspinal Tenderness Respiratory/Chest: Present: Clear to Auscultation, Good Air Exchange. No: Respiratory Distress, Accessory Muscle Use, Tachypneic Cardiovascular: Present: Regular Rate and Rhythm, Normal S1, S2, Peripheral Pulses Present. No: Murmurs Abdomen: Present: Normal Bowel Sounds, No: Tenderness, Peritoneal Signs, Rebound, Guarding, Distention Back: Present: Normal Inspection. No: Midline Tenderness, Paraspinal Tenderness Upper Extremity: Present: Normal Inspection. No: Cyanosis, Edema Lower Extremity: Present: +1 bilateral lower extremity swelling. No asymmetry. No pain. Neurological: Present: GCS=15, Speech Normal, cranial nerves II through XII fully intact with no cerebellar abnormality, neuro-sensory fully intact. No focal neurological deficits. Skin: Present: Warm, Dry, Normal Color. No: Rashes Lymphatic: Present: OX3, NI, NC Psychiatric: Present: Alert, Oriented x 3, Normal Insight, Normal Concentration Vital Signs Reviewed: Yes Vital Signs Temp Pulse Resp BP Pulse Ox 01/04/17 20:20 98.3 F 49 L 16 137/75 96 Temperature: Afebrile Blood Pressure: Normal Pulse: Bradycardic Respiratory Rate: Normal Appearance: Positive for: Well-Appearing, Non-Toxic, Comfortable Pain Distress: None Mental Status: Positive for: Alert and Oriented X 3 Medical Decision Making ED Course and Treatment: 01/04/17 20:47 Impression: A 31 year old female with chest discomfort and bilateral lower extremity swelling. +1 bilateral lower extremity swelling noted on examination. Differential Diagnosis included but are not limited to: Plan: -- EKG -- Chest X-ray -- Labs -- Aspirin & Vancomycin -- Reassess and disposition Prior Visits: Notes and results from previous visits were reviewed. Patient previously had MRSA bacteremia and as per infectious control's Dr. Mathis , patient need to have workup for endocarditis, but eloped from the hospital. Progress Notes: EKG: Ordered, reviewed, and independently interpreted the EKG. Rate : 50 BPM Rhythm : Sinus Bradycardia Interpretation : No ST-segment elevations, normal intervals. Interpreted by me. Comparison : No previous EKG for comparison. 01/04/17 20:53 Case discussed with and signed out to Dr. Ravi who accepts patient for admission. Case discussed with pediatrician/medical doctor. - Lab Interpretations I have reviewed the lab results: Yes - RAD Interpretation Radiology Orders: 01/04/17 20:38 CHEST PORTABLE [RAD] Stat - Medication Orders Current Medication Orders: Vancomycin HCl (Vancomycin 1gm) 1 gm in 250 mls @ 133.333 mls/hr IVPB STAT STA PRN Reason: Protocol Stop: 01/04/17 22:27 Discontinued Medications Aspirin (Aspirin Chewable) 324 mg PO STAT STA Stop: 01/04/17 20:36 - Scribe Statement The provider has reviewed the documentation as recorded by the Bimal Lomeli Provider Scribe Attestation: All medical record entries made by the Scribe were at my direction and personally dictated by me. I have reviewed the chart and agree that the record accurately reflects my personal performance of the history, physical exam, medical decision making, and the department course for this patient. I have also personally directed, reviewed, and agree with the discharge instructions and disposition. Disposition/Present on Arrival - Present on Arrival Any Indicators Present on Arrival: No History of DVT/PE: No History of Uncontrolled Diabetes: No Urinary Catheter: No History of Decub. Ulcer: No History Surgical Site Infection Following: None - Disposition Have Diagnosis and Disposition been Completed?: Yes Diagnosis: Chest pain Disposition: HOSPITALIZED Disposition Time: 21:03 Patient Plan: Admission Condition: FAIR Discharge Instructions (ExitCare): Chest Pain (ED) Referrals: Ora Tavera MD [Primary Care Provider] - Follow up with primary
--- NOTE | 2017-01-04 21:34 | CP.PCM.HP ---
History of Present Illness - History of Present Illness History of Present Illness: CC: "Lower extremity swelling, facial swelling" HPI: Pt is a 31 y/o female with a PMHx of IV drug abuse, Hepatitis C, asthma, and bipolar disorder who presented to the ED today with complaints of swelling in her lower extremities and face. Pt reports that she had a miscarriage in the ED at [facility] last funmilayo, 12/28/16, and was admitted to the hospital. Pt was found to have MRSA bacteremia. Pt signed out against medical advice on 12/31/16. Pt reports that she used 4 bags of heroin and 2 bottles of cocaine intravenously today. Pt reports occasionally chest tightness. Pt denies fever, chills, shortness of breath, nausea, and vomiting. PMHx: IV drug abuse, Hepatitis C, asthma, bipolar disorder, recent miscarriage Past Surgical Hx: Urinary tract surgery; cannot recall exact surgery, 25 years ago as a child Home medications: Singulair, albuterol Allergies: cephalosporins (rash); last occurred when she was a child Social Hx: reports smoking 10 cigarettes/day, reports occasional alcohol use, reports IV heroin and cocaine use Family Hx: Testicular cancer (brother), [place] (maternal uncle at age 43), melanoma (paternal side), esophageal cancer (maternal side) Present on Admission - Present on Admission Any Indicators Present on Admission: No Review of Systems - Constitutional Constitutional: absent: Chills, Fever - EENT Eyes: absent: Blurred Vision, Change in Vision Ears: absent: Dizziness Nose/Mouth/Throat: absent: Nasal Congestion, Nasal Discharge - Cardiovascular Cardiovascular: Edema, Leg Edema. absent: Chest Pain - Respiratory Respiratory: absent: Cough, Dyspnea on Exertion - Gastrointestinal Gastrointestinal: absent: Abdominal Pain, Constipation, Nausea - Genitourinary Genitourinary: absent: Dysuria - Musculoskeletal Musculoskeletal: absent: Atrophy - Neurological Neurological: absent: Dizziness - Psychiatric Psychiatric: absent: Anxiety, Change in Libido - Hematologic/Lymphatic Hematologic: absent: Easy Bleeding, Easy Bruising Past Patient History - Infectious Disease Hx of Infectious Diseases: None - Tetanus Immunizations Tetanus Immunization: Unknown - Past Medical History & Family History Past Medical History?: Yes - Past Social History Smoking Status: Heavy Smoker > 10 Cigarettes Daily - CARDIAC Hx Cardiac Disorders: No Hx Cardia Arrhythmia: No - PULMONARY Hx Respiratory Disorders: Yes Hx Asthma: Yes Hx Bronchitis: Yes Hx Pneumonia: Yes - NEUROLOGICAL Hx Neurological Disorder: No - HEENT Hx HEENT Problems: Yes (eyeglasses) - RENAL Other/Comment: pylenephritis - ENDOCRINE/METABOLIC Hx Endocrine Disorders: No - HEMATOLOGICAL/ONCOLOGICAL Hx Blood Disorders: No Hx Hepatitis C: Yes - INTEGUMENTARY Hx Dermatological Problems: No Other/Comment: multiple tatoos - MUSCULOSKELETAL/RHEUMATOLOGICAL Hx Falls: No - GASTROINTESTINAL Hx Gastrointestinal Disorders: Yes (acute colitis, abd pain, constipation) - GENITOURINARY/GYNECOLOGICAL Hx Genitourinary Disorders: (fibroids) Hx Urinary Tract Infection: Yes - PSYCHIATRIC Hx Psychophysiologic Disorder: Yes Hx Anxiety: Yes Hx Bipolar Disorder: Yes Hx Depression: Yes Hx Substance Use: Yes (heroin/opiates stopped 1 mo ago) - SURGICAL HISTORY Other/Comment: "bladder surgery during childhood", reflux reimplantation tube from bladder to r kidney - ANESTHESIA Hx Anesthesia: No Hx Anesthesia Reactions: No Hx Malignant Hyperthermia: No Meds Allergies/Adverse Reactions: Allergies Allergy/AdvReac Type Severity Reaction Status Date / Time Cephalosporins Allergy SWELLING Verified 01/04/17 20:12 Physical Exam - Constitutional Appears: No Acute Distress - Head Exam Head Exam: ATRAUMATIC, NORMOCEPHALIC - Eye Exam Eye Exam: EOMI, PERRL Pupil Exam: PERRL - ENT Exam ENT Exam: Mucous Membranes Moist. absent: Mucous Membranes Dry - Respiratory Exam Respiratory Exam: Clear to Auscultation Bilateral. absent: Rales, Rhonchi, Wheezes - Cardiovascular Exam Cardiovascular Exam: +S1, +S2. absent: Systolic Murmur - GI/Abdominal Exam GI & Abdominal Exam: Normal Bowel Sounds, Soft. absent: Tenderness - Extremities Exam Extremities exam: Positive for: pedal edema Additional comments: b/l lower extremity pitting edema - Neurological Exam Neurological exam: Alert, Oriented x3 - Psychiatric Exam Psychiatric exam: Normal Affect, Normal Mood - Skin Skin Exam: Normal Color, Warm Results - Vital Signs Recent Vital Signs: Last Vital Signs Temp 98.3 F 01/04/17 20:20 Pulse 49 L 01/04/17 20:20 Resp 16 01/04/17 20:20 BP 137/75 01/04/17 20:20 Pulse Ox 96 01/04/17 20:20 - Labs Result Diagrams: 01/04/17 20:30 01/04/17 20:30 Assessment & Plan - Assessment and Plan (Free Text) Assessment: Bilateral Lower Extremity Edema: Likely due to bacterial endocarditis Infectious Disease, Dr. Mathis, consulted. Help appreciated. Cardiology, Dr. Castellano, consulted. Help appreciated. MRSA Bacteremia: Bradycardic at 49 bpm Blood cultures (12/29/16) positive for methicillin resistent staph aureus Repeat blood cultures pending Vancomycin 1 gm IV q12h F/U vanco trough after 3rd dose Echocardiogram (12/31/16) - no vegetations seen, EF -65% (please see full report) Repeat Echocardiogram pending Troponins negative x 1 Pro-BNP 1330 Infectious Disease, Dr. Mathis, consulted. Help appreciated. Cardiology, Dr. Castellano, consulted. Help appreciated. Hx of Asthma: Singular 10 mg po qd Albuterol 2.5 mg IH q6hprn Hx of IV Drug abuse: Cessation counseling Urine drug screen pending Hx of Tobacco Use: Cessation counseling Nicotine patch Prophylactic Measures: DVT: Heparin 5000 units sc q8h, SCDs contraindicated due to l/e edema GI: Protonix 40 mg po qd
[2017-01-04 21:38] LABS: ADD MANUAL DIFF? NO
[2017-01-04 21:44] LABS: BASO # 0.02 K/mm3 (0.0-2.0); BASO % 0.3 % (0.0-3.0); EOS # 0.2 (0.0-0.7); EOS % 2.3 % (1.5-5.0); GRAN # 4.13 (1.4-6.5); GRAN % 53.6 % (50.0-68.0); HEMATOCRIT 34.5 % (36.0-48.0); LYMPH # 2.9 (1.2-3.4); MEAN CELL VOLUME 68.9 fL (80.0-105.0); MEAN CORPUSCULAR HEMOGLOBIN 22.8 pg (25.0-35.0); MEAN PLATELET VOLUME 8.7 fl (7.0-11.0); MONO # 0.5 (0.1-0.6); MONO % 5.8 % (1.0-6.0); PLATELET COUNT 476 10^3/uL (120.0-450.0); RED CELL DISTRIBUTION WIDTH 19.5 % (11.5-14.5); WHITE BLOOD COUNT 7.7 10^3/ul (4.5-11.0)
[2017-01-04 21:54] LABS: PARTIAL THROMBOPLASTIN TIME 30.3 Seconds (23.7-30.8)
[2017-01-04 22:30] LABS: ALB/GLOB RATIO 0.9 (1.1-1.8); ALKALINE PHOSPHATASE 112 U/L (38-133); ALT/SGPT 22 U/L (7-56); AST/SGOT 27 U/L (15-39); BILIRUBIN,TOTAL 0.5 mg/dL (0.2-1.3); BLOOD UREA NITROGEN 8 mg/dL (7-21); CALCIUM 8.9 mg/dL (8.4-10.5); CARBON DIOXIDE 27 mmol/L (21-33); CHLORIDE 104 mmol/L (98-107); GFR AFRICAN-AMERICAN > 60; GLUCOSE,RANDOM 105 mg/dL (70-110); POTASSIUM 3.6 mmol/L (3.6-5.0); SODIUM 141 mmol/L (132-148); TOTAL PROTEIN 7.4 g/dL (5.8-8.3); TROPONIN I < 0.01 ng/mL
[2017-01-04] MEDS ORDERED: Albuterol 0.083% Inhal Sol (2.5 mg/3 mL) UD IH PRN (22:52)
[2017-01-04] MEDS ORDERED: Vancomycin 1gm in NS 250ml 1 GM/250 ML BAG IVPB SCH (23:00)
[2017-01-04] MEDS: Vancomycin 1gm in NS 250ml 1 GM/250 ML BAG IVPB SCH (23:05)
[2017-01-05] MEDS: Pantoprazole 40 mg EC Tab PO SCH (06:15)
--- NOTE | 2017-01-05 10:16 | RAD ---
HISTORY: cp COMPARISON: 12/29/16 spell FINDINGS: LUNGS: No active pulmonary disease. PLEURA: No significant pleural effusion identified, no pneumothorax apparent. CARDIOVASCULAR: Normal. OSSEOUS STRUCTURES: No significant abnormalities. VISUALIZED UPPER ABDOMEN: Normal. OTHER FINDINGS: None. IMPRESSION: No active disease.
[2017-01-05] MEDS ORDERED: Barium Sulfate Susp 2.1% w/v, 2.0% w/w 450 mL Bottle PO ONE (11:32)
--- NOTE | 2017-01-05 12:10 | CP.PCM.PN ---
<Tania Rosales - Last Filed: 01/05/17 12:06> Subjective - Date & Time of Evaluation Date of Evaluation: 01/05/17 Time of Evaluation: 12:07 - Subjective Subjective: HOSPITALIST PROGRESS NOTE Pt is seen and examined at bedside. No acute events overnight. No IV access on patient even after multiple tries. Patient denies having any Cp, SOB currently. Patient states that LE swelling has improved. Right breast abscess has improved as well and breasts are not painful to touch. Objective - Vital Signs/Intake and Output Vital Signs (last 24 hours): Temp Pulse Resp BP Pulse Ox 97.9 F 59 L 18 137/86 97 01/05/17 07:00 01/05/17 10:00 01/05/17 08:00 01/05/17 08:00 01/05/17 08:00 Intake and Output: 01/05/17 01/05/17 06:59 18:59 Output Total 300 Balance -300 - Medications Medications: Current Medications Albuterol Sulfate (Albuterol 0.083% Inhal Mirna (2.5 Mg/3 Ml) Ud) 2.5 mg IH [id number] PRN PRN Reason: Shortness of Breath Heparin Sodium (Porcine) (Heparin) 5,000 units SC Q8H [place] PRN Reason: Protocol Last Admin: 01/05/17 06:22 Dose: Not Given Vancomycin HCl (Vancomycin 1gm) 1 gm in 250 mls @ 167 mls/hr IVPB Q12H [place] PRN Reason: Protocol Last Admin: 01/04/17 23:05 Dose: Not Given Montelukast Sodium (Singulair) 10 mg PO DAILY [facility] Last Admin: 01/05/17 09:36 Dose: Not Given Nicotine (Nicoderm Cq) 1 patch TD DAILY [facility] Last Admin: 01/05/17 09:36 Dose: Not Given Pantoprazole Sodium (Protonix Ec Tab) 40 mg PO 0630 [facility] Last Admin: 01/05/17 06:15 Dose: 40 mg - Labs Labs: PT 10.8 Seconds (9.9-11.8) 01/04/17 20:30 INR 1.00 (0.93-1.08) 01/04/17 20:30 APTT 30.3 Seconds (23.7-30.8) 01/04/17 20:30 - Constitutional Appears: Non-toxic, No Acute Distress - Head Exam Head Exam: ATRAUMATIC - Respiratory Exam Respiratory Exam: absent: Accessory Muscle Use, Clear to Ausculation Bilateral, Respiratory Distress - GI/Abdominal Exam GI & Abdominal Exam: Soft. absent: Distended, Firm, Guarding, Rigid, Tenderness - Exam Additional comments: scar from previous abscess on right breast. no induration, non-tender to touch. - Extremities Exam Extremities Exam: absent: Pedal Edema, Tenderness - Neurological Exam Neurological Exam: Alert, Awake, Oriented x3 - Psychiatric Exam Psychiatric exam: Normal Affect, Normal Mood - Skin Skin Exam: Dry, Intact, Normal Color, Warm Assessment and Plan - Assessment and Plan (Free Text) Assessment: Assessment: Bilateral Lower Extremity Edema: Resolved Likely due to bacterial endocarditis Infectious Disease, Dr. Mathis, consulted. Help appreciated. Cardiology, Dr. Castellano, consulted. Help appreciated. MRSA Bacteremia: Blood cultures (12/29/16) positive for methicillin resistent staph aureus Repeat blood cultures pending Vancomycin 1 gm IV q12h. F/U vanco trough after 3rd dose Echocardiogram (12/31/16) - no vegetations seen, EF -65% (please see full report) Troponins negative x 1 Pro-BNP 1330. Will repeat ProBNP with am labs tomorrow Infectious Disease, Dr. Mathis, consulted. Help appreciated. Cardiology, Dr. Castellano, consulted. Help appreciated. Hx of Asthma: Singular 10 mg po qd Albuterol 2.5 mg IH q6hprn Hx of IV Drug abuse: Cessation counseling Urine drug screen pending Hx of Tobacco Use: Cessation counseling Nicotine patch No IV access Surgery consulted for possible central line/ PICC line access. The concern is patient leaving AMA with line in place. Will put 1:1 sitter once line is inserted Awaiting access for medication administration and to get blood work Prophylactic Measures: DVT: Heparin 5000 units sc q8h, SCDs contraindicated due to l/e edema GI: Protonix 40 mg po qd Case discussed with attending Dr. Hernandez <Ventura Hernandez - Last Filed: 01/05/17 12:26> Objective - Vital Signs/Intake and Output Vital Signs (last 24 hours): Temp Pulse Resp BP Pulse Ox 97.9 F 59 L 18 137/86 97 01/05/17 07:00 01/05/17 10:00 01/05/17 08:00 01/05/17 08:00 01/05/17 08:00 Intake and Output: 01/05/17 01/05/17 06:59 18:59 Output Total 300 Balance -300 - Medications Medications: Current Medications Albuterol Sulfate (Albuterol 0.083% Inhal Mirna (2.5 Mg/3 Ml) Ud) 2.5 mg IH [id number] PRN PRN Reason: Shortness of Breath Heparin Sodium (Porcine) (Heparin) 5,000 units SC Q8H [place] PRN Reason: Protocol Last Admin: 01/05/17 06:22 Dose: Not Given Vancomycin HCl (Vancomycin 1gm) 1 gm in 250 mls @ 167 mls/hr IVPB Q12H [place] PRN Reason: Protocol Last Admin: 01/04/17 23:05 Dose: Not Given Montelukast Sodium (Singulair) 10 mg PO DAILY [facility] Last Admin: 01/05/17 09:36 Dose: Not Given Nicotine (Nicoderm Cq) 1 patch TD DAILY [facility] Last Admin: 01/05/17 09:36 Dose: Not Given Pantoprazole Sodium (Protonix Ec Tab) 40 mg PO 0630 [facility] Last Admin: 01/05/17 06:15 Dose: 40 mg - Labs Labs: PT 10.8 Seconds (9.9-11.8) 01/04/17 20:30 INR 1.00 (0.93-1.08) 01/04/17 20:30 APTT 30.3 Seconds (23.7-30.8) 01/04/17 20:30 Attending/Attestation - Attestation I have personally seen and examined this patient.: Yes I have fully participated in the care of the patient.: Yes I have reviewed all pertinent clinical information, including history, physical exam and plan: Yes Notes (Text): 01/05/17 12:20 31 year old female with past medical history of IVDA, MRSA bacteremia and asthma who presented with intermittent chest pain and LE edema (resolved). She was here earlier this week for bacteremia but signed out AMA. Recent echo was negative for vegetations. ID consult was requested. Continue with iv antibiotics. CT chest/abdomen/pelvis is ordered. Will obtain serial cardiac enzymes to rule out ACS. Patient was counselled on risks of continued substance abuse. She was counselled on smoking abstinence. She is on albuterol prn for asthma. Patient currently has no iv access. Surgery consult is requested for central line and 1:1 observation will be ordered if this is placed given patient's history of IVDA and signing out AMA. Ventura Hernandez MD Hospitalist. ==
[2017-01-05] MEDS: Vancomycin 1gm in NS 250ml 1 GM/250 ML BAG IVPB SCH ×2 (12:52→22:33)
[2017-01-05 12:59] LABS: HEMATOCRIT 30.5 % (36.0-48.0); MEAN CELL VOLUME 68.5 fL (80.0-105.0); MEAN CORPUSCULAR HEMOGLOBIN 22.7 pg (25.0-35.0); MEAN CORPUSCULAR HGB CONC 33.1 g/dl (31.0-37.0); MEAN PLATELET VOLUME 8.6 fl (7.0-11.0); RED CELL DISTRIBUTION WIDTH 19.4 % (11.5-14.5)
[2017-01-05 13:10] LABS: ALB/GLOB RATIO 0.8 (1.1-1.8); ALKALINE PHOSPHATASE 94 U/L (38-133); ALT/SGPT 22 U/L (7-56); AST/SGOT 22 U/L (15-39); BILIRUBIN,TOTAL 0.5 mg/dL (0.2-1.3); BLOOD UREA NITROGEN 6 mg/dL (7-21); CALCIUM 8.4 mg/dL (8.4-10.5); CARBON DIOXIDE 29 mmol/L (21-33); CHLORIDE 104 mmol/L (98-107); GFR AFRICAN-AMERICAN > 60; GLUCOSE,RANDOM 86 mg/dL (70-110); POTASSIUM 3.3 mmol/L (3.6-5.0); SODIUM 139 mmol/L (132-148); TOTAL PROTEIN 6.6 g/dL (5.8-8.3)
[2017-01-05 13:23] LABS: TROPONIN I < 0.01 ng/mL
--- NOTE | 2017-01-05 13:34 | CARD ---
APPROVED REPORT EKG Measurement Heart [id number] [id number] <Conclusion> Marked sinus bradycardia Left posterior fascicular block Nonspecific T wave abnormality Abnormal ECG
[2017-01-05] MEDS ORDERED: Potassium Chloride 40 mEq/30 ml LIQ UD PO ONE (13:52)
--- NOTE | 2017-01-05 19:04 | CP.PCM.CON ---
<Murtaza Saunders - Last Filed: 01/05/17 19:08> History of Present Illness - History of Present Illness History of Present Illness: Surgery: Dr. Franco CC: Poor peripheral IV access HPI: 31 y/o female with a PMHx of IV drug abuse, Hepatitis C, asthma, and bipolar disorder. Pt was recently admitted on 12/28 for MRSA bacteremia, but signed out AMA. Pt returns to the hospital and has poor peripheral IV access and surgery has been consulted for central line placement so abx can be started. PMH: IVDA, Hepatitis C, asthma, bipolar disorder, recent miscarriage 12/28/16 PSH: Urinary tract surgery; cannot recall exact surgery, 25 years ago as a child Meds: MAR reviewed Allergies: cephalosporins (rash) Social Hx: reports smoking 10 cigarettes/day, reports occasional alcohol use, reports IV heroin and cocaine use Review of Systems - Review of Systems All systems: reviewed and no additional remarkable complaints except (HPI) Past Patient History - Infectious Disease Hx of Infectious Diseases: None - Tetanus Immunizations Tetanus Immunization: Unknown - Past Medical History & Family History Past Medical History?: Yes - Past Social History Smoking Status: Heavy Smoker > 10 Cigarettes Daily - CARDIAC Hx Cardiac Disorders: No Hx Cardia Arrhythmia: No - PULMONARY Hx Respiratory Disorders: Yes Hx Asthma: Yes Hx Bronchitis: Yes Hx Chronic Obstructive Pulmonary Disease (COPD): No Hx Emphysema: No Hx Pneumonia: Yes - NEUROLOGICAL Hx Neurological Disorder: No - HEENT Hx HEENT Problems: Yes (eyeglasses) - RENAL Other/Comment: pylenephritis - ENDOCRINE/METABOLIC Hx Endocrine Disorders: No - HEMATOLOGICAL/ONCOLOGICAL Hx Blood Disorders: No Hx Hepatitis C: Yes - INTEGUMENTARY Hx Dermatological Problems: No Other/Comment: multiple tatoos - MUSCULOSKELETAL/RHEUMATOLOGICAL Hx Falls: No - GASTROINTESTINAL Hx Gastrointestinal Disorders: Yes (acute colitis, abd pain, constipation) - GENITOURINARY/GYNECOLOGICAL Hx Genitourinary Disorders: (fibroids) Hx Urinary Tract Infection: Yes - PSYCHIATRIC Hx Substance Use: Yes - SURGICAL HISTORY Other/Comment: "bladder surgery during childhood", reflux reimplantation tube from bladder to r kidney - ANESTHESIA Hx Anesthesia: No Hx Anesthesia Reactions: No Hx Malignant Hyperthermia: No Meds Allergies/Adverse Reactions: Allergies Allergy/AdvReac Type Severity Reaction Status Date / Time Cephalosporins Allergy SWELLING Verified 01/04/17 20:12 - Medications Medications: Current Medications Albuterol Sulfate (Albuterol 0.083% Inhal Mirna (2.5 Mg/3 Ml) Ud) 2.5 mg IH [id number] PRN PRN Reason: Shortness of Breath Heparin Sodium (Porcine) (Heparin) 5,000 units SC Q8H [place] PRN Reason: Protocol Last Admin: 01/05/17 15:00 Dose: Not Given Vancomycin HCl (Vancomycin 1gm) 1 gm in 250 mls @ 167 mls/hr IVPB Q12H [place] PRN Reason: Protocol Last Admin: 01/05/17 12:52 Dose: 167 mls/hr Montelukast Sodium (Singulair) 10 mg PO DAILY [facility] Last Admin: 01/05/17 09:36 Dose: Not Given Nicotine (Nicoderm Cq) 1 patch TD DAILY [facility] Last Admin: 01/05/17 09:36 Dose: Not Given Pantoprazole Sodium (Protonix Ec Tab) 40 mg PO 0630 [facility] Last Admin: 01/05/17 06:15 Dose: 40 mg Physical Exam - Constitutional Appears: Non-toxic, No Acute Distress - Head Exam Head Exam: ATRAUMATIC, NORMOCEPHALIC - Eye Exam Eye Exam: EOMI. absent: Scleral icterus - ENT Exam ENT Exam: Mucous Membranes Moist, Normal External Ear Exam - Neck Exam Neck exam: Positive for: Full Rom - Respiratory Exam Respiratory Exam: NORMAL BREATHING PATTERN. absent: Accessory Muscle Use, Respiratory Distress - GI/Abdominal Exam GI & Abdominal Exam: Soft. absent: Tenderness - Extremities Exam Extremities exam: Negative for: calf tenderness, pedal edema - Neurological Exam Neurological exam: Alert, Oriented x3 Results - Vital Signs Recent Vital Signs: Last Vital Signs Temp 97.8 F 01/05/17 17:22 Pulse 56 L 01/05/17 18:00 Resp 20 01/05/17 17:22 BP 163/91 H 01/05/17 17:22 Pulse Ox 94 L 01/05/17 17:22 - Labs Result Diagrams: 01/05/17 12:41 01/05/17 12:41 Labs: Laboratory Results - last 24 hr 01/05/17 01/05/17 01/05/17 04:00 12:41 12:41 WBC 8.0 RBC 4.45 Hgb 10.1 L Hct 30.5 L MCV 68.5 L MCH 22.7 L MCHC 33.1 RDW 19.4 H Plt Count 423 MPV 8.6 Sodium 139 Potassium 3.3 L Chloride 104 Carbon Dioxide 29 Anion Gap 9 L BUN 6 L Creatinine 0.6 Est GFR ( Amer) > 60 Est GFR (Non-Af Amer) > 60 Random Glucose 86 Calcium 8.4 Total Bilirubin 0.5 AST 22 ALT 22 Alkaline Phosphatase 94 Troponin I < 0.01 Total Protein 6.6 Albumin 2.9 L Globulin 3.7 Albumin/Globulin Ratio 0.8 L Urine Opiates Screen Positive H Urine Methadone Screen Negative Ur Barbiturates Screen Negative Ur Phencyclidine Scrn Negative Ur Amphetamines Screen Negative U Benzodiazepines Scrn Negative U Oth Cocaine Metabols Positive H U Cannabinoids Screen Negative Assessment & Plan - Assessment and Plan (Free Text) Assessment: 31F w. MRSA bacteremia and poor peripheral IV access -Central line placement R groin -Ok to use catheter -case d.w attending Chip PGY2 Central Line Placement - Central Line Placement Indication: Unable To Obtain Adequate Peripheral Access Central Line Placement: Right: Femoral The Area Was Thoroughly Prepared With: Chlorhexidine, Draped Using Sterile Technique Area Was Locally Anesthetized With: Lidocaine 1% Procedure: Triple Lumen, Placed Using Standard Seldinger Technique, Catheter Was Sewn Into Place, Sterile Dressing Placed Over Line, Procedure Tolerated Well <Paco Franco B - Last Filed: 01/09/17 21:26> Results - Vital Signs Recent Vital Signs: Last Vital Signs Temp 98.9 F 01/09/17 16:00 Pulse 82 01/09/17 16:00 Resp 18 01/09/17 16:00 BP 105/59 L 01/09/17 16:00 Pulse Ox 98 01/09/17 16:00 - Labs Result Diagrams: 01/09/17 06:00 01/09/17 06:00 Labs: Laboratory Results - last 24 hr 01/09/17 01/09/17 01/09/17 06:00 06:00 06:00 WBC 13.5 H D RBC 5.16 Hgb 11.8 L Hct 35.7 L MCV 69.2 L MCH 22.9 L MCHC 33.1 RDW 19.3 H Plt Count 492 H MPV 8.6 Sodium 135 Potassium 4.1 Chloride 97 L Carbon Dioxide 27 Anion Gap 15 BUN 8 Creatinine 0.5 Est GFR ( Amer) > 60 Est GFR (Non-Af Amer) > 60 Random Glucose 90 Calcium 9.5 Total Bilirubin 0.6 AST 23 ALT 25 Alkaline Phosphatase 97 Total Protein 8.3 Albumin 3.8 Globulin 4.5 Albumin/Globulin Ratio 0.8 L Vancomycin Trough 6.7 Attending/Attestation - Attestation I have personally seen and examined this patient.: Yes I have fully participated in the care of the patient.: Yes I have reviewed all pertinent clinical information: Yes Notes (Text): 01/09/17 21:25 Pt was seen and examined at bedside on 01/05/17 Agree with above note and assessment Pt with Bacteremia with Poor IV access Consent Right femoal TLC at bedside C/w current management Plan d.w pt and primary team in detail Risk and benefit explained in detail.
--- NOTE | 2017-01-05 19:50 | CON ---
DATE: 01/05/2017 REASON FOR CONSULTATION: Methicillin-resistant Staphylococcus aureus bacteremia. HISTORY OF PRESENT ILLNESS: The patient is a 31-year-old female who has a history of drug abuse incl uding cocaine and is an active ID drug abuser. She was recently admitted because of a miscarriage. The patient underwent placental evacuation in the Emergency Room after she passed the fetus. The pat ient had positive culture for methicillin-resistant Staph aureus and the cultures were drawn on the and 12/29. The patient had an echocardiographic study performed on 12/31 that revealed normal yola joel size, normal ejection fraction, [id number] mitral and tricuspid insufficiency, thickened ao rtic valve, no aortic regurgitation, thickened mitral valve and thickened tricuspid leaflets, no vege tation. The patient has been actively shooting after her most recent discharge. MEDICATIONS: Heparin 5000 units subcutaneous q.8 hours, nicotine patch, Protonix 40 mg p.o. once a d ay, Singulair 10 mg once a day, vancomycin 1 gram intravenously q.12 hours, albuterol inhaler q.6 osiris rs p.r.n. PHYSICAL EXAMINATION: GENERAL: The patient is a young middle-aged female who does not appear to be in any distress. VITAL SIGNS: Blood pressure 125/69, heart rate 48, temperature 98.3, respirations 18. HEENT: Pale conjunctivae. CHEST: Minimal rhonchi. HEART: S1, S2 regular. EXTREMITIES: Trace leg edema. LABORATORY DATA: Hemoglobin and hematocrit 10.1 and 30.5. The platelet count and white count are wi thin normal limits. PT and PTT are within normal limits. Today's potassium is 3.3. Two sets of tro ponins are negative. ProBNP is 1530. Urine drug screen is positive for cocaine and opiates. ASSESSMENT: 1. Methicillin-resistant Staphylococcus aureus bacteremia. 2. Active intravenous drug abuse. RECOMMENDATIONS: Continue current IV vancomycin. The case was discussed with Dr. Hernandez who will obt ain a chest, abdomen and pelvis CT scan. Consider repeat transthoracic echocardiographic study. Erich Castaneda MD cc: [id number] TT: 01/05/2017 19:49:52 Confirmation # [id number] Dictation # [id number] dn
[2017-01-06] MEDS: Pantoprazole 40 mg EC Tab PO SCH (05:52)
[2017-01-06 06:30] LABS: HEMATOCRIT 30.5 % (36.0-48.0); MEAN CELL VOLUME 68.7 fL (80.0-105.0); MEAN CORPUSCULAR HEMOGLOBIN 22.1 pg (25.0-35.0); MEAN CORPUSCULAR HGB CONC 32.1 g/dl (31.0-37.0); MEAN PLATELET VOLUME 8.8 fl (7.0-11.0); RED CELL DISTRIBUTION WIDTH 19.2 % (11.5-14.5)
[2017-01-06 06:42] LABS: ALB/GLOB RATIO 0.8 (1.1-1.8); ALKALINE PHOSPHATASE 89 U/L (38-133); ALT/SGPT 22 U/L (7-56); AST/SGOT 32 U/L (15-39); BILIRUBIN,TOTAL 0.5 mg/dL (0.2-1.3); BLOOD UREA NITROGEN 4 mg/dL (7-21); CALCIUM 8.4 mg/dL (8.4-10.5); CARBON DIOXIDE 28 mmol/L (21-33); CHLORIDE 105 mmol/L (98-107); GFR AFRICAN-AMERICAN > 60; GLUCOSE,RANDOM 77 mg/dL (70-110); POTASSIUM 3.1 mmol/L (3.6-5.0); SODIUM 141 mmol/L (132-148); TOTAL PROTEIN 6.6 g/dL (5.8-8.3)
--- NOTE | 2017-01-06 08:24 | CP.PCM.PN ---
Subjective - Date & Time of Evaluation Date of Evaluation: 01/06/17 Time of Evaluation: 08:22 - Subjective Subjective: Surgery: Dr. Franco Pt seen and examined. Mild discomfort at R groin. Otherwise no complaints. Objective - Vital Signs/Intake and Output Vital Signs (last 24 hours): Temp Pulse Resp BP Pulse Ox 97.8 F 57 L 20 163/91 H 94 L 01/06/17 06:00 01/06/17 06:00 01/06/17 06:00 01/06/17 06:00 01/06/17 06:00 Intake and Output: 01/06/17 01/06/17 06:59 18:59 Intake Total 250 Balance 250 - Medications Medications: Current Medications Albuterol Sulfate (Albuterol 0.083% Inhal Mirna (2.5 Mg/3 Ml) Ud) 2.5 mg IH [id number] PRN PRN Reason: Shortness of Breath Heparin Sodium (Porcine) (Heparin) 5,000 units SC Q8H [place] PRN Reason: Protocol Last Admin: 01/06/17 08:02 Dose: Not Given Vancomycin HCl (Vancomycin 1gm) 1 gm in 250 mls @ 167 mls/hr IVPB Q12H [place] PRN Reason: Protocol Last Admin: 01/05/17 22:33 Dose: 167 mls/hr Potassium Chloride (Potassium Chloride 20 Meq/100 Ml) 20 meq in 100 mls @ 50 mls/hr IVPB Q2H [place] Stop: 01/06/17 10:59 Last Admin: 01/06/17 08:05 Dose: 50 mls/hr Montelukast Sodium (Singulair) 10 mg PO DAILY [facility] Last Admin: 01/05/17 09:36 Dose: Not Given Nicotine (Nicoderm Cq) 1 patch TD DAILY [place] Last Admin: 01/05/17 20:02 Dose: 1 patch Pantoprazole Sodium (Protonix Ec Tab) 40 mg PO 0630 [facility] Last Admin: 01/06/17 05:52 Dose: 40 mg - Labs Labs: 01/06/17 06:00 01/06/17 06:00 PT 10.8 Seconds (9.9-11.8) 01/04/17 20:30 INR 1.00 (0.93-1.08) 01/04/17 20:30 APTT 30.3 Seconds (23.7-30.8) 01/04/17 20:30 - Constitutional Appears: Non-toxic, No Acute Distress - Head Exam Head Exam: ATRAUMATIC, NORMOCEPHALIC - Eye Exam Eye Exam: EOMI - ENT Exam ENT Exam: Mucous Membranes Moist - Neck Exam Neck Exam: Full ROM - Respiratory Exam Respiratory Exam: NORMAL BREATHING PATTERN. absent: Accessory Muscle Use, Respiratory Distress - GI/Abdominal Exam GI & Abdominal Exam: Soft. absent: Distended, Firm, Guarding, Rigid, Tenderness - Extremities Exam Extremities Exam: absent: Calf Tenderness, Pedal Edema Additional comments: R groin w. central line in place, C/D/I - Neurological Exam Neurological Exam: Alert, Awake, Oriented x3 Assessment and Plan - Assessment and Plan (Free Text) Assessment: 31F w. MRSA bacteremia s/p R groin central line POD#1 for poor peripheral access -c/w abx -will need PICC line -d/w attending Zemaitis PGY2
[2017-01-06] MEDS: Vancomycin 1gm in NS 250ml 1 GM/250 ML BAG IVPB SCH ×2 (13:35→22:16)
--- NOTE | 2017-01-06 14:28 | CP.PCM.PN ---
<Norbert Cha - Last Filed: 01/06/17 14:24> Subjective - Date & Time of Evaluation Date of Evaluation: 01/06/17 Time of Evaluation: 08:00 - Subjective Subjective: Dr. Cha PGY 1 Hospitalist Note Patient seen and evaluated at bedside with attending present. She reports she gets a random chest tightness and burning after eating but no chest pain or SOB. She also denies any nausea, vomiting, fever, chills, diarrhea, or dysuria. She says she last used cocaine and heroin 4 days ago and denies having any withdrawal symptoms. Her leg swelling has improved as has her breast abscess. Per nursing, no adverse events over night. Objective - Vital Signs/Intake and Output Vital Signs (last 24 hours): Temp Pulse Resp BP Pulse Ox 98.0 F 98 H 20 110/70 94 L 01/06/17 12:41 01/06/17 12:41 01/06/17 12:41 01/06/17 12:41 01/06/17 06:00 Intake and Output: 01/06/17 01/06/17 06:59 18:59 Intake Total 250 Balance 250 - Medications Medications: Current Medications Albuterol Sulfate (Albuterol 0.083% Inhal Mirna (2.5 Mg/3 Ml) Ud) 2.5 mg IH [id number] PRN PRN Reason: Shortness of Breath Heparin Sodium (Porcine) (Heparin) 5,000 units SC Q8H [place] PRN Reason: Protocol Last Admin: 01/06/17 08:02 Dose: Not Given Vancomycin HCl (Vancomycin 1gm) 1 gm in 250 mls @ 167 mls/hr IVPB Q12H [place] PRN Reason: Protocol Last Admin: 01/06/17 13:35 Dose: 167 mls/hr Montelukast Sodium (Singulair) 10 mg PO DAILY [place] Last Admin: 01/06/17 10:23 Dose: 10 mg Nicotine (Nicoderm Cq) 1 patch TD DAILY [place] Last Admin: 01/06/17 11:22 Dose: 1 patch Pantoprazole Sodium (Protonix Ec Tab) 40 mg PO 0630 [place] Last Admin: 01/06/17 05:52 Dose: 40 mg - Labs Labs: 01/06/17 06:00 01/06/17 06:00 PT 10.8 Seconds (9.9-11.8) 01/04/17 20:30 INR 1.00 (0.93-1.08) 01/04/17 20:30 APTT 30.3 Seconds (23.7-30.8) 01/04/17 20:30 - Constitutional Appears: Non-toxic, No Acute Distress - Head Exam Head Exam: ATRAUMATIC, NORMOCEPHALIC - Eye Exam Eye Exam: EOMI, Normal appearance, PERRL Pupil Exam: NORMAL ACCOMODATION, PERRL - ENT Exam ENT Exam: Mucous Membranes Moist - Neck Exam Neck Exam: Normal Inspection - Respiratory Exam Respiratory Exam: Clear to Ausculation Bilateral, NORMAL BREATHING PATTERN. absent: Rales, Rhonchi, Wheezes - Cardiovascular Exam Cardiovascular Exam: REGULAR RHYTHM, +S1, +S2. absent: Gallop, Rubs, Murmur - GI/Abdominal Exam GI & Abdominal Exam: Soft, Normal Bowel Sounds. absent: Tenderness - Extremities Exam Extremities Exam: Normal Capillary Refill, Normal Inspection. absent: Pedal Edema, Tenderness - Neurological Exam Neurological Exam: Alert, Awake, CN II-XII Intact, Oriented x3 - Psychiatric Exam Psychiatric exam: Normal Affect, Normal Mood - Skin Skin Exam: Dry, Intact, Normal Color, Warm Assessment and Plan - Assessment and Plan (Free Text) Assessment: 31 y/o F with hx of asthma and IV drug use presents with MRSA bacteremia and chest pain currently followed by ID and cardiology. S/p central line placement on IV ABX. Plan: MRSA Bacteremia: * Infectious Disease, Dr. Mathis, consulted. Help appreciated. * Cardiology, Dr. Castellano, consulted. Help appreciated. * Blood cultures (12/29/16) positive for methicillin resistent staph aureus * Repeat blood cultures show no growth * Continue Vancomycin 1 gm IV q12h. * vanco trough level 9.9 * Echocardiogram (12/31/16) - no vegetations seen, EF -65% (please see full report) * F/U Repeat Echo * Troponins negative x 3 * Initial Pro-BNP 1330. Repeat (01/06) was 790 * Surgery consulted for central line/ PICC line access. * Femoral line in place, will need PICC line placement * The concern is patient leaving AMA with line in place. * 1:1 sitter Bilateral Lower Extremity Edema: * Resolved * Likely due to bacterial endocarditis * Infectious Disease, Dr. Mathis, consulted. Help appreciated. * Cardiology, Dr. Castellano, consulted. Help appreciated. Hx of Asthma: * Asymptomatic at this time * Singular 10 mg po qd * Albuterol 2.5 mg IH q6hprn Hx of IV Drug abuse: * Cessation counseling * Urine drug screen positive for cocaine and opiates Hx of Tobacco Use: * Cessation counseling * Nicotine patch Prophylactic Measures: * DVT: Heparin 5000 units sc q8h, * SCDs * Protonix 40 mg po qd Case discussed with attending <Ventura Hernandez - Last Filed: 01/06/17 14:49> Objective - Vital Signs/Intake and Output Vital Signs (last 24 hours): Temp Pulse Resp BP Pulse Ox 98.0 F 98 H 20 110/70 94 L 01/06/17 12:41 01/06/17 12:41 01/06/17 12:41 01/06/17 12:41 01/06/17 06:00 Intake and Output: 01/06/17 01/06/17 06:59 18:59 Intake Total 250 Balance 250 - Medications Medications: Current Medications Albuterol Sulfate (Albuterol 0.083% Inhal Mirna (2.5 Mg/3 Ml) Ud) 2.5 mg IH [id number] PRN PRN Reason: Shortness of Breath Heparin Sodium (Porcine) (Heparin) 5,000 units SC Q8H [place] PRN Reason: Protocol Last Admin: 01/06/17 08:02 Dose: Not Given Vancomycin HCl (Vancomycin 1gm) 1 gm in 250 mls @ 167 mls/hr IVPB Q12H [place] PRN Reason: Protocol Last Admin: 01/06/17 13:35 Dose: 167 mls/hr Montelukast Sodium (Singulair) 10 mg PO DAILY [facility] Last Admin: 01/06/17 10:23 Dose: 10 mg Nicotine (Nicoderm Cq) 1 patch TD DAILY [facility] Last Admin: 01/06/17 11:22 Dose: 1 patch Pantoprazole Sodium (Protonix Ec Tab) 40 mg PO 0630 [facility] Last Admin: 01/06/17 05:52 Dose: 40 mg - Labs Labs: 01/06/17 06:00 01/06/17 06:00 PT 10.8 Seconds (9.9-11.8) 04/28/17 20:30 INR 1.00 (0.93-1.08) 01/04/17 20:30 APTT 30.3 Seconds (23.7-30.8) 01/04/17 20:30 Attending/Attestation - Attestation I have personally seen and examined this patient.: Yes I have fully participated in the care of the patient.: Yes I have reviewed all pertinent clinical information, including history, physical exam and plan: Yes Notes (Text): 01/06/17 14:45 31 year old female with past medical history of IVDA, MRSA bacteremia and asthma who presented with intermittent chest pain and LE edema both which have resolved. Serial cardiac enzymes were negative and ACS has been ruled out. She was here earlier this week for bacteremia but signed out AMA. Echo was negative for vegetations at the time. Case was discussed with ID who recommended to continue with iv antibiotics and follow up on repeat echocardiogram and cultures. CT chest/abdomen/pelvis was done yesterday with report pending. She currently has a right femoral line in place as iv access. Tomorrow will request for picc line. Again she is on 1:1 observation for now given history of IVDA and signing out recently AMA. She was counselled on smoking abstinence. She is on albuterol prn for asthma. Patient was counselled on risks of continued substance abuse. Will replete and repeat potassium. Ventura Hernandez MD Hospitalist.
--- NOTE | 2017-01-06 14:44 | PN ---
DATE: 01/06/2017 The patient denies any chest pain or palpitations. PHYSICAL EXAMINATION: VITAL SIGNS: Blood pressure 110/70, heart rate 98, temperature 98, respirations 20. HEENT: Pale conjunctivae. CHEST: Clear. HEART: S1, S2 regular. EXTREMITIES: No edema. LABORATORIES: Hemoglobin and hematocrit 9.8 and 30.5. Today's potassium 3.1. ASSESSMENT: 1. Methicillin-resistant Staphylococcus aureus bacteremia, rule out endocarditis. 2. Hypokalemia. 3. Active intravenous drug abuser. RECOMMENDATIONS: The patient did receive 40 mEq of IV potassium replacement today. Continue IV vanc omycin and subcutaneous heparin. Follow up transthoracic echocardiograph study to be done tomorrow. Erich Castaneda MD cc: [id number] TT: 01/06/2017 14:43:44 Confirmation # [id number] Dictation # [id number] en
--- NOTE | 2017-01-06 18:06 | PN ---
DATE: 01/06/2017 The patient was seen early this morning in room 267, bed 1. The patient is in bed, in no acute distr ess, nontoxic. PHYSICAL EXAMINATION: VITAL SIGNS: The patient's temperature is 98, blood pressure is 160/70, respiratory rate of 16. HEENT: Unremarkable. NECK: Supple. LUNGS: Have decreased breath sounds. HEART: Normal S1, S2. ABDOMEN: Soft, nontender. LABORATORY EXAMINATION: Reveals the blood cultures are no growth at 24 hours. The blood cultures pr ior to that on the were positive for MRSA and they were positive for MRSA from the . Labora tory examination is noted. The patient had a CAT scan of the abdomen and the chest, the results are pending. Dr. Hernandez's note i s reviewed. The patient is currently on IV vancomycin. Echocardiogram is pending. note i s reviewed. ASSESSMENT AND PLAN: A 31-year-old female with active intravenous drug abuser with methicillin-resis tant Staphylococcus aureus bacteremia, presenting with a chest pain, on vancomycin. Will check on e transthoracic echo, sed rate, C-reactive protein. Etiology of the chest pain is concerning. Wheth er it is an osteomyelitis from the bacteremia or bony infarct from embolic disease yet to be determin ed. We will continue the vancomycin. The repeat cultures are now negative and will check on the sed rate and C-reactive protein, vancomycin trough level and will follow closely with you and check on t he CAT scan of the chest and abdomen and pelvis in this patient who is ALLERGIC TO CEPHALOSPORINS wit h methicillin-resistant Staphylococcus aureus bacteremia secondary to intravenous drug abuse. Dennis Luna MD cc: [phone] TT: 01/06/2017 18:05:55 Confirmation # [id number] Dictation # [id number] en
--- NOTE | 2017-01-06 19:34 | CT ---
PROCEDURE: CT Chest, abdomen and pelvis following oral contrast material. IV contrast not administered per request HISTORY: r/o infection COMPARISON: TheComparison made with CT scan chest 05/30/[address] scan abdomen 11/06/2012. The TECHNIQUE: Radiation dose: Total exam DLP = 459.51 mGy-cm. This CT exam was performed using one or more of the following dose reduction techniques: Automated exposure control, adjustment of the mA and/or kV according to patient size, and/or use of iterative reconstruction technique. FINDINGS: CT CHEST WITH CONTRAST: LUNGS: Minor passive atelectasis both posterior lower lung zones. There also appears to be some scarring/linear atelectasis both lung bases. Efrain MEDIASTINUM: Unremarkable. Normal caliber aorta and pulmonary arterial trunk. No aortic dissection. Normal size heart. LYMPH NODES: No significant mediastinal adenopathy. Evaluation for hilar adenopathy slightly limited due to the lack of circulating intravenous contrast material. PLEURA: Tiny bilateral pleural effusions. BONES: Unremarkable. OTHER FINDINGS: None. CT ABDOMEN AND PELVIS: LIVER: Liver is upper limits of normal measuring approximately 18.2 cm in CC dimension. GALLBLADDER AND BILE DUCTS: Unremarkable. PANCREAS: Unremarkable. No gross lesion or ductal dilatation. SPLEEN: Unremarkable. ADRENALS: Slightly prominent left adrenal gland. KIDNEYS AND URETERS: Unremarkable. No hydronephrosis. No solid mass. VASCULATURE: Right femoral vein catheter. No evidence of aortic aneurysm. BOWEL: Evaluation of the bowel is limited due to incomplete opacification. The stomach is incompletely distended which may account for slight thick-walled appearance. Gastritis not excluded. Visualized loops of small bowel exhibit normal contour and caliber. No evidence acute mechanical small bowel obstruction. APPENDIX: The appendix not seen with complete certainty however no evidence to suggest acute appendicitis. . PERITONEUM: Unremarkable. No free fluid. No free air. LYMPH NODES: Unremarkable. No enlarged lymph nodes. BLADDER: The distended urinary bladder. REPRODUCTIVE: Enlarged bulky heterogeneous uterus with at least 1 discrete area of low-attenuation in the right fundal and upper body region on which measures approximately 6.2 cm in greatest dimension. 2.4 cm right adnexal cyst. . BONES: No acute fracture. OTHER FINDINGS: IMPRESSION: Tiny bilateral effusions. Uterine fibroids. Right ovarian cyst. In situ right femoral vein catheter.
[2017-01-07] MEDS: Pantoprazole 40 mg EC Tab PO SCH (06:29)
[2017-01-07 07:36] LABS: HEMATOCRIT 32.5 % (36.0-48.0); MEAN CELL VOLUME 68.6 fL (80.0-105.0); MEAN CORPUSCULAR HEMOGLOBIN 22.4 pg (25.0-35.0); MEAN CORPUSCULAR HGB CONC 32.6 g/dl (31.0-37.0); MEAN PLATELET VOLUME 8.6 fl (7.0-11.0); RED CELL DISTRIBUTION WIDTH 19.3 % (11.5-14.5); WHITE BLOOD COUNT 8.7 10^3/ul (4.5-11.0)
[2017-01-07 07:53] LABS: ALB/GLOB RATIO 0.8 (1.1-1.8); ALKALINE PHOSPHATASE 98 U/L (38-133); ALT/SGPT 20 U/L (7-56); AST/SGOT 19 U/L (15-39); BILIRUBIN,TOTAL 0.5 mg/dL (0.2-1.3); BLOOD UREA NITROGEN 4 mg/dL (7-21); CARBON DIOXIDE 27 mmol/L (21-33); CHLORIDE 105 mmol/L (98-107); GFR AFRICAN-AMERICAN > 60; GLUCOSE,RANDOM 79 mg/dL (70-110); POTASSIUM 3.5 mmol/L (3.6-5.0); SODIUM 139 mmol/L (132-148); TOTAL PROTEIN 7.2 g/dL (5.8-8.3)
[2017-01-07] MEDS ORDERED: Potassium Chloride 20 mEq ER Tab PO ONE (07:56)
--- NOTE | 2017-01-07 08:40 | PN ---
DATE: 01/05/2017 The patient seen early this morning. CHIEF COMPLAINT: Chest pain times several days. HISTORY OF PRESENT ILLNESS: This is a 31-year-old female with recently signed out against medical ad vice. The patient was in the hospital with persistent MRSA bacteremia secondary to IV drug abuse and a history of asthma, history of hepatitis C, history of pyelonephritis and had an active wi th vaginal bleeding and had a right ankle cellulitis and abscess and had incision and drainage. The patient was being treated with antibiotics; however, she decided to sign out against medical advice a nd now returns with chest pain. She denies any fevers or any chills. She states the chest pain has improved with rest and it is not related to her inspirations. REVIEW OF SYSTEMS: Reveals no fevers, no chills, no abdominal pain, no pelvic pain, no diarrhea or c onstipation and no headaches. PAST MEDICAL HISTORY: Is significant for asthma, hepatitis C, pyelonephritis, recent active with vaginal bleeding, recent methicillin-resistant Staphylococcus aureus bacteremia, active drug ab use intravenously and a right ankle abscess; had incision and drainage of the right ankle abscess and the patient also has anxiety, depression and bipolar. PAST SURGICAL HISTORY: Is significant for drainage of an abscess. ALLERGIES: THE PATIENT IS ALLERGIC TO CEPHALOSPORINS. HOME MEDICATIONS: Include her inhaler for asthma. PHYSICAL EXAMINATION: GENERAL: She is in bed. She is comfortable. VITAL SIGNS: Temperature of 97, blood pressure is 160/90, respiratory rate of 20, heart rate of 48. HEENT: Unremarkable. NECK: Supple. LUNGS: Have decreased breath sounds. HEART: Normal S1, S2. ABDOMEN: Soft, nontender. No rebound, no guarding. CHEST: There is no point tenderness on exam of her chest. LABORATORY EXAMINATION: Reveals a white count of 7.7, hemoglobin of 11, platelets of 476 and 53% gra nulocytosis. Coagulation is noted. BUN of 8, creatinine of 0.6. BNP is 1330 and toxicology reveals urine opiate screens to be positive and cocaine metabolites to be positive in the urine. Microbiolo gy reveals the blood cultures from 12/29 reveals MRSA in the blood. Multiple blood cultures have been MRSA and . The patient's vancomycin RUPA of 1. The patient had blood cultures from 12/27/2016 a nd 12/29/2016. Her ankle culture from 08/2015 was Streptococcus species, Streptococcus . The Emergency Room chart is reviewed. The patient also had an HIV test that was negative in and a repeat one was negative here just last week. Hepatitis C antibody is positive, but the RNA w as not detected as of 09/11/2015. RPR was nonreactive. ASSESSMENT AND PLAN: The patient is a 31-year-old female with asthma, hepatitis C, history of pyelon ephritis, history of right ankle abscess with anxiety, depression, bipolar, recent active wi th vaginal bleeding, continues to use intravenous drugs and now presenting with methicillin-resistant Staphylococcus aureus bacteremia secondary to IV drug abuse and chest pain. Will discontinue the va ncomycin and check on the vancomycin trough level. Try to maintain a trough level of 15-20. An echo cardiogram was negative. CAT scan of the chest and abdomen has been ordered. Cardiology evaluation for the chest pain. Concern about either embolic disease to the bone causing chest pain and/or the b acteremia seeding getting osteomyelitis locally and giving the chest pain. Will make further recomme ndations based on the CAT scan finding and continue the vancomycin and will make adjustments as per n ew information. The case was discussed with PMD and the team. Will follow closely with you. Dennis Luna MD cc: [phone] TT: 01/05/2017 21:16:46 Confirmation # [id number] Dictation # [id number] dn
[2017-01-07] MEDS: Vancomycin 1gm in NS 250ml 1 GM/250 ML BAG IVPB SCH ×2 (10:07→22:12)
--- NOTE | 2017-01-07 11:24 | CP.PCM.PN ---
<Richard Lieberman - Last Filed: 01/07/17 11:37> Subjective - Date & Time of Evaluation Date of Evaluation: 01/07/17 Time of Evaluation: 08:50 - Subjective Subjective: Patient seen and examined at bedside. with medical attending present. Currently patient reports no complaints. States her leg swelling has improved. Patient denies fever/chills, chest pain, shortness of breath, palpitations, abdominal pain. Patient to be scheduled for PICC line placement as well as transthoracic echocardiography. Objective - Vital Signs/Intake and Output Vital Signs (last 24 hours): Temp Pulse Resp BP Pulse Ox 98.2 F 45 L 19 133/72 96 01/07/17 08:32 01/07/17 08:32 01/07/17 08:32 01/07/17 08:32 01/07/17 08:32 - Medications Medications: Current Medications Albuterol Sulfate (Albuterol 0.083% Inhal Mirna (2.5 Mg/3 Ml) Ud) 2.5 mg IH [id number] PRN PRN Reason: Shortness of Breath Alprazolam (Xanax) 0.5 mg PO BID PRN; Protocol PRN Reason: Anxiety Last Admin: 01/06/17 21:33 Dose: 0.5 mg Heparin Sodium (Porcine) (Heparin) 5,000 units SC Q8H [place] PRN Reason: Protocol Last Admin: 01/07/17 10:04 Dose: Not Given Vancomycin HCl (Vancomycin 1gm) 1 gm in 250 mls @ 167 mls/hr IVPB Q12H [place] PRN Reason: Protocol Last Admin: 01/07/17 10:07 Dose: 167 mls/hr Montelukast Sodium (Singulair) 10 mg PO DAILY [place] Last Admin: 01/07/17 10:04 Dose: 10 mg Nicotine (Nicoderm Cq) 1 patch TD DAILY [place] Last Admin: 01/07/17 10:04 Dose: 1 patch Pantoprazole Sodium (Protonix Ec Tab) 40 mg PO 0630 [place] Last Admin: 01/07/17 06:29 Dose: 40 mg - Labs Labs: 01/07/17 06:00 01/07/17 06:30 PT 10.8 Seconds (9.9-11.8) 01/04/17 20:30 INR 1.00 (0.93-1.08) 01/04/17 20:30 APTT 30.3 Seconds (23.7-30.8) 01/04/17 20:30 - Constitutional Appears: No Acute Distress - Eye Exam Eye Exam: EOMI, Normal appearance - ENT Exam ENT Exam: Mucous Membranes Moist - Respiratory Exam Respiratory Exam: NORMAL BREATHING PATTERN - Cardiovascular Exam Cardiovascular Exam: +S1, +S2 - GI/Abdominal Exam GI & Abdominal Exam: Soft. absent: Tenderness - Extremities Exam Extremities Exam: absent: Calf Tenderness, Pedal Edema - Neurological Exam Neurological Exam: Alert, Awake, Oriented x3 - Psychiatric Exam Psychiatric exam: Normal Mood - Skin Skin Exam: Dry, Normal Color Assessment and Plan - Assessment and Plan (Free Text) Assessment: 31F with PMHx of asthma and IV drug use presents with +MRSA bacteremia and chest pain currently followed by ID and cardiology. S/p central line placement on IV ABX. Plan: MRSA Bacteremia: * Infectious Disease, Dr. Luna. * Cardiology, Dr. Castellano, consulted. Awaiting recommendations. * Blood cultures (12/29/16) positive for MRSA * Repeat blood cultures showed no growth * Continue Vancomycin 1 gm IV q12h. * vanco trough level 9.9 * Echocardiogram (12/31/16) - no vegetations seen, EF -65% (please see full report) * Awaiting transthoracic echocardiography results * Troponins negative x 3 * Initial Pro-BNP 1330. Repeat (01/06) was 790 * Right groin central line in place * Will need PICC line placement. Bilateral Lower Extremity Edema: * Resolved * Likely 2/2 bacterial endocarditis * Infectious Disease, Dr. Luna on board. * Cardiology, Dr. Castellano, consulted, awaiting recommendations. Hx of Asthma: * Asymptomatic at this time * Singular 10 mg po qd * Albuterol 2.5 mg IH q6hprn Hx of IV Drug abuse: * Cessation counseling * Urine drug screen positive for cocaine and opiates Hx of Tobacco Use: * Cessation counseling * Nicotine patch Prophylactic Measures: * DVT: Heparin 5000 units sc q8h, * SCDs * Protonix 40 mg po qd Case discussed with attending <Sakina DALE,Ricci - Last Filed: 01/07/17 16:44> Objective - Vital Signs/Intake and Output Vital Signs (last 24 hours): Temp Pulse Resp BP Pulse Ox 98.2 F 45 L 19 133/72 96 01/07/17 08:32 01/07/17 08:32 01/07/17 08:32 01/07/17 08:32 01/07/17 11:23 Intake and Output: 01/07/17 01/07/17 06:59 18:59 Intake Total 860 Balance 860 - Medications Medications: Current Medications Albuterol Sulfate (Albuterol 0.083% Inhal Mirna (2.5 Mg/3 Ml) Ud) 2.5 mg IH [id number] PRN PRN Reason: Shortness of Breath Alprazolam (Xanax) 0.5 mg PO BID PRN; Protocol PRN Reason: Anxiety Last Admin: 01/07/17 13:24 Dose: 0.5 mg Heparin Sodium (Porcine) (Heparin) 5,000 units SC Q8H [place] PRN Reason: Protocol Last Admin: 01/07/17 15:43 Dose: Not Given Vancomycin HCl (Vancomycin 1gm) 1 gm in 250 mls @ 167 mls/hr IVPB Q12H [place] PRN Reason: Protocol Last Admin: 01/07/17 10:07 Dose: 167 mls/hr Montelukast Sodium (Singulair) 10 mg PO DAILY [place] Last Admin: 01/07/17 10:04 Dose: 10 mg Nicotine (Nicoderm Cq) 1 patch TD DAILY [facility] Last Admin: 01/07/17 10:04 Dose: 1 patch Pantoprazole Sodium (Protonix Ec Tab) 40 mg PO 0630 [facility] Last Admin: 01/07/17 06:29 Dose: 40 mg - Labs Labs: 01/07/17 06:00 01/07/17 06:30 PT 10.8 Seconds (9.9-11.8) 01/04/17 20:30 INR 1.00 (0.93-1.08) 01/04/17 20:30 APTT 30.3 Seconds (23.7-30.8) 01/04/17 20:30 Attending/Attestation - Attestation I have personally seen and examined this patient.: Yes I have fully participated in the care of the patient.: Yes I have reviewed all pertinent clinical information, including history, physical exam and plan: Yes Notes (Text): Patient was seen and examined with program medical director .Agreed with resident assessment and plan. 31 year old female with PMH of IV drug abuse, Recent MRSA bacteremia and asthma, left AMA last week is readmitted with intermittent chest pain and LE edema both which have resolved. Serial cardiac enzymes were negative and ACS has been ruled out.Repeat blood cultures are negative, on IV vancomycin, will get PICC line today, Femoral line need to be discontinued after PICC line is placed. Echo results are pending, Cardiology and ID are following. Management plan was discussed in detail with patient Education was provided.
[2017-01-07] MEDS ORDERED: Lidocaine 2% Inj (20ml) ONE (16:22)
--- NOTE | 2017-01-07 19:07 | VASCULAR ---
PROCEDURE: Ultrasound and fluoroscopically placed left upper extremity PICC line. HISTORY: Bacteremia. Long-term IV antibiotics. Needs PICC line. PHYSICIAN(S): Luis Vidal MD. TECHNIQUE: The relative risks and indications of the procedure were explained to the patient and consent obtained. The patient was placed supine on the arteriogram table and the left arm prepped and draped in the usual sterile fashion. A tourniquet was applied to the left axilla. 1% Xylocaine was used to anesthetize the skin and soft tissues at the puncture site above the elbow. The left basilic vein was punctured under direct ultrasound guidance with a micropuncture set. A 0.018 guidewire was advanced centrally and used to measure the length to the SVC/RA junction. A 5 [place] single-lumen PICC line 38 cm long was advanced to the SVC/RA junction. The catheter was flushed and secured. The patient tolerated the procedure well. IMPRESSION: 1. Ultrasound and fluoroscopically placed left upper extremity PICC line. A 5 [place] single-lumen PICC line 38 cm long was advanced to the SVC/RA junction.
--- NOTE | 2017-01-07 20:45 | PN ---
DATE: 01/07/2017 The patient is in bed in no acute distress, nontoxic. PHYSICAL EXAMINATION: VITAL SIGNS: Temperature is 98, blood pressure is 130/70, respiratory rate of 16. HEENT: Unremarkable. NECK: Supple. LUNGS: Have decreased breath sounds. HEART: Normal S1, S2. ABDOMEN: Soft, nontender. LABORATORY DATA: Reveals a white count of 8.7, hemoglobin of 10, platelets of 467. Chemistries reve al the BUN of 4, creatinine of 0.6. C-reactive protein is greater than 15. Microbiology reveals the blood cultures are negative. ASSESSMENT AND PLAN: This is a 31-year-old female, active intravenous drug abuser, recently in the ospital with methicillin-resistant Staphylococcus aureus bacteremia, now presenting with chest pain a nd with a new PICC line. The patient's echo results are not available. Repeat blood cultures on thi s admission from 01/04 with no growth. The patient had positive blood cultures from 12/29. Today is d ay #4 of vancomycin therapy and since the cultures have become negative. We will check on the echo r esults. The patient with a sed rate of 26 and C-reactive protein greater than 15. We will check on p.o. vancomycin level which from yesterday was 9.9 and 1 gram q. 12 hours. The patient had missed a few doses. Will repeat a vancomycin trough level next 24-48 hours to assure adequate dosing. Ideall y would like to have a trough level between 15 and 20. We will follow with you. Dennis Luna MD cc: [id number] TT: 01/07/2017 20:45:00 Confirmation # [id number] Dictation # [id number] deanne
[2017-01-08 08:00] LABS: HEMATOCRIT 33.2 % (36.0-48.0); MEAN CELL VOLUME 69.5 fL (80.0-105.0); MEAN CORPUSCULAR HEMOGLOBIN 22.6 pg (25.0-35.0); MEAN CORPUSCULAR HGB CONC 32.5 g/dl (31.0-37.0); MEAN PLATELET VOLUME 8.5 fl (7.0-11.0); RED CELL DISTRIBUTION WIDTH 19.6 % (11.5-14.5); WHITE BLOOD COUNT 9.4 10^3/ul (4.5-11.0)
[2017-01-08 08:16] LABS: ALB/GLOB RATIO 0.8 (1.1-1.8); ALKALINE PHOSPHATASE 82 U/L (38-133); ALT/SGPT 26 U/L (7-56); AST/SGOT 25 U/L (15-39); BILIRUBIN,TOTAL 0.5 mg/dL (0.2-1.3); BLOOD UREA NITROGEN 8 mg/dL (7-21); CALCIUM 8.8 mg/dL (8.4-10.5); CARBON DIOXIDE 28 mmol/L (21-33); CHLORIDE 102 mmol/L (98-107); GFR AFRICAN-AMERICAN > 60; GLUCOSE,RANDOM 83 mg/dL (70-110); SODIUM 140 mmol/L (132-148); TOTAL PROTEIN 7.2 g/dL (5.8-8.3)
[2017-01-08] MEDS: Pantoprazole 40 mg EC Tab PO SCH (09:14)
[2017-01-08] MEDS: Vancomycin 1gm in NS 250ml 1 GM/250 ML BAG IVPB SCH ×2 (10:13→22:38)
--- NOTE | 2017-01-08 11:52 | PN ---
DATE: 01/08/2017 SUBJECTIVE: The patient is comfortable without shortness of breath, without chest pain. PHYSICAL EXAMINATION: VITAL SIGNS: Blood pressure 116/68, the heart rate is in the 60s. The patient is afebrile. NECK: Negative JVD. LUNGS: Without rales. HEART: Reveals S1, S2. EXTREMITIES: Without edema. LABORATORIES: Hemoglobin is 10.8, white count is 9.4. Chemistries: BUN and creatinine are unremark able. Preliminary echocardiogram reveals no vegetations noted. IMPRESSION: 1. No evidence of vegetations. 2. History of IV drug abuse. 3. Resolution of chest pain. Given these findings, no further cardiac workup is indicated at this time. Luis Castellano MD cc: [id number] TT: 01/08/2017 11:51:34 Confirmation # [id number] Dictation # [id number] tn
--- NOTE | 2017-01-08 15:32 | CP.PCM.PN ---
<Araceli Son - Last Filed: 01/08/17 15:37> Subjective - Date & Time of Evaluation Date of Evaluation: 01/08/17 Time of Evaluation: 07:45 - Subjective Subjective: Pt seen and evaluated at bedside. Pt denies fever, chest pain, n/v/urinary changes. Is eating, afebrile overnight. Objective - Vital Signs/Intake and Output Vital Signs (last 24 hours): Temp Pulse Resp BP Pulse Ox 98.3 F 60 20 116/68 96 01/08/17 08:42 01/08/17 08:42 01/08/17 08:42 01/08/17 08:42 01/08/17 11:25 Intake and Output: 01/08/17 01/08/17 06:59 18:59 Intake Total 840 780 Balance 840 780 - Medications Medications: Current Medications Albuterol Sulfate (Albuterol 0.083% Inhal Mirna (2.5 Mg/3 Ml) Ud) 2.5 mg IH [id number] PRN PRN Reason: Shortness of Breath Alprazolam (Xanax) 0.5 mg PO BID PRN; Protocol PRN Reason: Anxiety Last Admin: 01/07/17 22:33 Dose: 0.5 mg Heparin Sodium (Porcine) (Heparin) 5,000 units SC Q8H [place] PRN Reason: Protocol Last Admin: 01/08/17 09:12 Dose: Not Given Vancomycin HCl (Vancomycin 1gm) 1 gm in 250 mls @ 167 mls/hr IVPB Q12H [place] PRN Reason: Protocol Last Admin: 01/08/17 10:13 Dose: 167 mls/hr Montelukast Sodium (Singulair) 10 mg PO DAILY [facility] Last Admin: 01/08/17 09:18 Dose: Not Given Nicotine (Nicoderm Cq) 1 patch TD DAILY [facility] Last Admin: 01/08/17 10:12 Dose: Not Given Pantoprazole Sodium (Protonix Ec Tab) 40 mg PO 0630 [facility] Last Admin: 01/08/17 09:14 Dose: 40 mg - Labs Labs: 01/08/17 07:30 01/08/17 07:30 PT 10.8 Seconds (9.9-11.8) 01/04/17 20:30 INR 1.00 (0.93-1.08) 01/04/17 20:30 APTT 30.3 Seconds (23.7-30.8) 01/04/17 20:30 - Constitutional Appears: Non-toxic, No Acute Distress - Head Exam Head Exam: ATRAUMATIC, NORMOCEPHALIC - Eye Exam Eye Exam: EOMI, Normal appearance - ENT Exam ENT Exam: Mucous Membranes Moist, Normal Exam - Respiratory Exam Respiratory Exam: Clear to Ausculation Bilateral, NORMAL BREATHING PATTERN - Cardiovascular Exam Cardiovascular Exam: +S1, +S2. absent: Tachycardia - GI/Abdominal Exam GI & Abdominal Exam: Soft. absent: Tenderness - Exam External exam: absent: Ecchymosis, Erythema - Back Exam Back Exam: absent: CVA tenderness (L), CVA tenderness (R) - Neurological Exam Neurological Exam: Alert, Awake - Skin Skin Exam: Intact, Normal Color Assessment and Plan - Assessment and Plan (Free Text) Plan: 31F with PMHx of asthma and IV drug use presents with +MRSA bacteremia and chest pain currently followed by ID and cardiology. S/p central line placement on IV ABX. MRSA Bacteremia: * Infectious Disease, Dr. Luna. * Cardiology, Dr. Castellano, consulted. * repeat ECHO w/o vegetations, no further recommendations. * Blood cultures (12/29/16) positive for MRSA * Repeat blood cultures showed no growth x 3ds * Continue Vancomycin 1 gm IV q12h. * vanco trough level 9.9, repeat trough ordered for 9am 5/ * Echocardiogram (12/31/16) - no vegetations seen, EF -65% (please see full report) * Troponins negative x 3 * Initial Pro-BNP 1330. Repeat (01/06) was 790 * Right groin central line removed * PICC line placement complete. Bilateral Lower Extremity Edema: * Resolved * Likely 2/2 bacterial endocarditis * Infectious DiseaseDr. Luna on board. * Cardiology, Dr. Castellano, consulted, awaiting recommendations. Hx of Asthma: * Asymptomatic at this time * Singular 10 mg po qd * Albuterol 2.5 mg IH q6hprn Hx of IV Drug abuse: * Cessation counseling * Urine drug screen positive for cocaine and opiates Hx of Tobacco Use: * Cessation counseling * Nicotine patch Prophylactic Measures: * DVT: Heparin 5000 units sc q8h, * SCDs * Protonix 40 mg po qd Case discussed with attending <Ricci Presley MD - Last Filed: 01/08/17 16:14> Objective - Vital Signs/Intake and Output Vital Signs (last 24 hours): Temp Pulse Resp BP Pulse Ox 98.3 F 60 20 116/68 96 01/08/17 08:42 01/08/17 08:42 01/08/17 08:42 01/08/17 08:42 01/08/17 11:25 Intake and Output: 01/08/17 01/08/17 06:59 18:59 Intake Total 840 780 Balance 840 780 - Medications Medications: Current Medications Albuterol Sulfate (Albuterol 0.083% Inhal Mirna (2.5 Mg/3 Ml) Ud) 2.5 mg IH [id number] PRN PRN Reason: Shortness of Breath Alprazolam (Xanax) 0.5 mg PO BID PRN; Protocol PRN Reason: Anxiety Last Admin: 01/07/17 22:33 Dose: 0.5 mg Heparin Sodium (Porcine) (Heparin) 5,000 units SC Q8H [place] PRN Reason: Protocol Last Admin: 01/08/17 09:12 Dose: Not Given Vancomycin HCl (Vancomycin 1gm) 1 gm in 250 mls @ 167 mls/hr IVPB Q12H [place] PRN Reason: Protocol Last Admin: 01/08/17 10:13 Dose: 167 mls/hr Montelukast Sodium (Singulair) 10 mg PO DAILY [facility] Last Admin: 01/08/17 09:18 Dose: Not Given Nicotine (Nicoderm Cq) 1 patch TD DAILY [facility] Last Admin: 01/08/17 10:12 Dose: Not Given Pantoprazole Sodium (Protonix Ec Tab) 40 mg PO 0630 [facility] Last Admin: 01/08/17 09:14 Dose: 40 mg - Labs Labs: 01/08/17 07:30 01/08/17 07:30 PT 10.8 Seconds (9.9-11.8) 01/04/17 20:30 INR 1.00 (0.93-1.08) 01/04/17 20:30 APTT 30.3 Seconds (23.7-30.8) 01/04/17 20:30 Attending/Attestation - Attestation I have personally seen and examined this patient.: Yes I have fully participated in the care of the patient.: Yes I have reviewed all pertinent clinical information, including history, physical exam and plan: Yes Notes (Text): Patient was seen and examined with product manager medical device .Agreed with resident assessment and plan. 31 F with PMH of IV drug abuse with MRSA bactermia , repeat blood cultures are negative,Trans thoracic Echo showed no vegetation, on IV vancomycin, ID to decided about duration of antibiotics.Patient can be discharged home due to H/O IV drug abuse, will need weekly BMP,CBC and CRP. Management plan was discussed in detail with patient Education was provided.
[2017-01-08 16:21] VITALS: RESP 18
--- NOTE | 2017-01-08 21:34 | CP.PCM.PN ---
Subjective - Date & Time of Evaluation Date of Evaluation: 01/08/17 Time of Evaluation: 10:40 - Subjective Subjective: Comfortable in bed, not in distress, afebrile overnight. Objective - Vital Signs/Intake and Output Vital Signs (last 24 hours): Temp Pulse Resp BP Pulse Ox 98.4 F 56 L 18 108/70 95 01/08/17 16:00 01/08/17 16:00 01/08/17 16:00 01/08/17 16:00 01/08/17 16:00 Intake and Output: 01/08/17 01/09/17 18:59 06:59 Intake Total 780 Balance 780 - Medications Medications: Current Medications Albuterol Sulfate (Albuterol 0.083% Inhal Mirna (2.5 Mg/3 Ml) Ud) 2.5 mg IH [id number] PRN PRN Reason: Shortness of Breath Alprazolam (Xanax) 0.5 mg PO BID PRN; Protocol PRN Reason: Anxiety Last Admin: 01/08/17 16:47 Dose: 0.5 mg Heparin Sodium (Porcine) (Heparin) 5,000 units SC Q8H [place] PRN Reason: Protocol Last Admin: 01/08/17 09:12 Dose: Not Given Vancomycin HCl (Vancomycin 1gm) 1 gm in 250 mls @ 167 mls/hr IVPB Q12H [place] PRN Reason: Protocol Last Admin: 01/08/17 10:13 Dose: 167 mls/hr Montelukast Sodium (Singulair) 10 mg PO DAILY [facility] Last Admin: 01/08/17 09:18 Dose: Not Given Nicotine (Nicoderm Cq) 1 patch TD DAILY [facility] Last Admin: 01/08/17 10:12 Dose: Not Given Pantoprazole Sodium (Protonix Ec Tab) 40 mg PO 0630 [facility] Last Admin: 01/08/17 09:14 Dose: 40 mg - Labs Labs: 01/08/17 07:30 01/08/17 07:30 PT 10.8 Seconds (9.9-11.8) 01/04/17 20:30 INR 1.00 (0.93-1.08) 01/04/17 20:30 APTT 30.3 Seconds (23.7-30.8) 01/04/17 20:30 - Constitutional Appears: Non-toxic, No Acute Distress - Head Exam Head Exam: NORMAL INSPECTION - ENT Exam ENT Exam: Mucous Membranes Moist - Neck Exam Neck Exam: absent: Meningismus - Respiratory Exam Respiratory Exam: Decreased Breath Sounds - Cardiovascular Exam Cardiovascular Exam: +S1, +S2 - GI/Abdominal Exam GI & Abdominal Exam: Soft. absent: Tenderness Assessment and Plan - Assessment and Plan (Free Text) Plan: Assessment Persistent Methicillin-resistant Staph aureus bacteremia in a patient with active IV drug use; no skin and soft tissue infection noted; will need to rule out endocarditis S/P Active and vaginal bleeding S/P Right ankle cellulitis with abscess S/P I and D current IV drug use (heroin and cocaine) asthma history of pyelonephritis positive Hep. C antibody Plan continue Vancomycin pending 2D echo reading; repeat blood cx are negative - today is day 5 of Vancomycin from first negative blood cx will continue to follow clinically
--- NOTE | 2017-01-08 23:22 | CARD ---
APPROVED REPORT EXAM: Two-dimensional and M-mode echocardiogram with Doppler and color Doppler. INDICATION R/O ENDOCARDITIS 2D DIMENSIONS Left Atrium (2D)3.5 (1.6-4.0cm)IVSd0.9 (0.7-1.1cm) LVDd4.3 (3.9-5.9cm)PWd0.9 (0.7-1.1cm) LVDs2.7 (2.5-4.0cm)FS (%) 36.5 % LVEF (%)66.6 (>50%) M-Mode DIMENSIONS Aortic Root3.00 (2.2-3.7cm)Aortic Cusp Exc.1.80 (1.5-2.0cm) Aortic Valve AoV Peak Kljmwkuc622.0cm/Francia Peak GR.11mmHg Mitral Valve MV E Mqumsskc51.0cm/sMV A Gvmefpzw22.5cm/sE/A ratio1.3 TDI Lateral E' Peak V16.00cm/sMedial E' Peak V8.48cm/sE/Lateral E'4.6 E/Medial E'8.7 Pulmonary Valve PV Peak Ertqopvk45.5cm/sPV Peak Grad.2mmHg Tricuspid Valve TR Peak Ivdbgcka398wk/sRAP [id number] Peak Gr.17mmHg [id number] LEFT VENTRICLE The left ventricle is normal size. There is normal left ventricular wall thickness. The left ventricular function is normal. The left ventricular ejection fraction is within the normal range. There is normal LV segmental wall motion. The left ventricular diastolic function is normal. RIGHT VENTRICLE The right ventricle is normal size. There is normal right ventricular wall thickness. The right ventricular systolic function is normal. ATRIA The left atrium size is normal. The right atrium size is normal. AORTIC VALVE The aortic valve is mildly thickened. MITRAL VALVE The mitral valve is mildly thickened. Mitral regurgitation is trace. A borderline mitral valve prolapse is present. TRICUSPID VALVE The tricuspid valve leaflets are thickened , but open well. There is no pulmonary hypertension. There is trace tricuspid regurgitation. GREAT VESSELS The aortic root is normal in size. <Conclusion> Thickened Mitral and tricusped leaflets and Aortic Cusps No definit vegitation see
[2017-01-09] MEDS: Pantoprazole 40 mg EC Tab PO SCH (08:13)
[2017-01-09 08:41] LABS: HEMATOCRIT 35.7 % (36.0-48.0); MEAN CELL VOLUME 69.2 fL (80.0-105.0); MEAN CORPUSCULAR HEMOGLOBIN 22.9 pg (25.0-35.0); MEAN CORPUSCULAR HGB CONC 33.1 g/dl (31.0-37.0); MEAN PLATELET VOLUME 8.6 fl (7.0-11.0); RED CELL DISTRIBUTION WIDTH 19.3 % (11.5-14.5); WHITE BLOOD COUNT 13.5 10^3/ul (4.5-11.0)
[2017-01-09 08:50] LABS: ALB/GLOB RATIO 0.8 (1.1-1.8); ALKALINE PHOSPHATASE 97 U/L (38-133); ALT/SGPT 25 U/L (7-56); AST/SGOT 23 U/L (15-39); BILIRUBIN,TOTAL 0.6 mg/dL (0.2-1.3); BLOOD UREA NITROGEN 8 mg/dL (7-21); CALCIUM 9.5 mg/dL (8.4-10.5); CARBON DIOXIDE 27 mmol/L (21-33); CHLORIDE 97 mmol/L (98-107); GFR AFRICAN-AMERICAN > 60; GLUCOSE,RANDOM 90 mg/dL (70-110); POTASSIUM 4.1 mmol/L (3.6-5.0); SODIUM 135 mmol/L (132-148); TOTAL PROTEIN 8.3 g/dL (5.8-8.3)
[2017-01-09] MEDS: Vancomycin 1gm in NS 250ml 1 GM/250 ML BAG IVPB SCH ×2 (09:51→10:00)
--- NOTE | 2017-01-09 14:28 | CP.PCM.PN ---
Addendum entered and electronically signed by Richard Lieberman DO 01/09/17 15:43: Notified by social work that they have found subacute rehab placement for patient. Patient will be transferred to [facility] in [place] to finish antibiotic course. Original Note: <Richard Lieberman - Last Filed: 01/09/17 14:34> Subjective - Date & Time of Evaluation Date of Evaluation: 01/09/17 Time of Evaluation: 07:35 - Subjective Subjective: Patient seen and examined this morning. Denies fever/chills, chest pain/SOB, n/v /d, abdominal pain. No complaints. No acute events over night. Case management on board, awaiting subacute rehab placement. Patient will need at least 6 weeks of antibiotic tx as per infectious disease. PICC Line in place, area is c/d/i. Objective - Vital Signs/Intake and Output Vital Signs (last 24 hours): Temp Pulse Resp BP Pulse Ox 98.4 F 56 L 18 108/70 95 01/08/17 16:00 01/08/17 16:00 01/08/17 16:00 01/08/17 16:00 01/08/17 16:00 Intake and Output: 01/09/17 01/09/17 06:59 18:59 Intake Total 360 780 Balance 360 780 - Medications Medications: Current Medications Albuterol Sulfate (Albuterol 0.083% Inhal Mirna (2.5 Mg/3 Ml) Ud) 2.5 mg IH [id number] PRN PRN Reason: Shortness of Breath Alprazolam (Xanax) 0.5 mg PO BID PRN; Protocol PRN Reason: Anxiety Last Admin: 01/08/17 22:39 Dose: 0.5 mg Heparin Sodium (Porcine) (Heparin) 5,000 units SC Q8H [place] PRN Reason: Protocol Last Admin: 01/09/17 08:14 Dose: Not Given Vancomycin HCl (Vancomycin 1gm) 1 gm in 250 mls @ 167 mls/hr IVPB Q12H [place] PRN Reason: Protocol Last Admin: 01/09/17 10:00 Dose: Not Given Montelukast Sodium (Singulair) 10 mg PO DAILY [place] Last Admin: 01/09/17 09:58 Dose: Not Given Nicotine (Nicoderm Cq) 1 patch TD DAILY [place] Last Admin: 01/09/17 09:51 Dose: 1 patch Pantoprazole Sodium (Protonix Ec Tab) 40 mg PO 0630 [facility] Last Admin: 01/09/17 08:13 Dose: 40 mg - Labs Labs: 01/09/17 06:00 01/09/17 06:00 PT 10.8 Seconds (9.9-11.8) 01/04/17 20:30 INR 1.00 (0.93-1.08) 01/04/17 20:30 APTT 30.3 Seconds (23.7-30.8) 01/04/17 20:30 - Constitutional Appears: Non-toxic, No Acute Distress - Eye Exam Eye Exam: Normal appearance - ENT Exam ENT Exam: Mucous Membranes Moist - Respiratory Exam Respiratory Exam: NORMAL BREATHING PATTERN - Cardiovascular Exam Cardiovascular Exam: +S1, +S2 - GI/Abdominal Exam GI & Abdominal Exam: Soft - Neurological Exam Neurological Exam: Alert, Awake, Oriented x3 - Psychiatric Exam Psychiatric exam: Normal Mood - Skin Skin Exam: Dry, Intact, Warm Assessment and Plan - Assessment and Plan (Free Text) Assessment: 31F with PMHx of asthma and IV drug use presents with +MRSA bacteremia and chest pain currently followed by ID and cardiology. S/p PICC placement on IV ABX. Plan: MRSA Bacteremia: * Infectious Disease, Dr. Luna. * Cardiology, Dr. Castellano, consulted. * repeat ECHO w/o vegetations, no further recommendations. * Blood cultures (12/29/16) positive for MRSA * Repeat blood cultures showed no growth x 3ds * Continue Vancomycin 1 gm IV q12h. As per infectious disease patient will need at least 6 weeks of IV Abx. Case management on board, awaiting subacute rehab placement. * vanco trough level 9.9, repeat trough ordered on 01/09 , (6.7) * Echocardiogram (12/31/16) - no vegetations seen, EF -65% (please see full report) * Troponins negative x 3 * Initial Pro-BNP 1330. Repeat (01/06) was 790 * Right groin central line removed * PICC line placement complete. Bilateral Lower Extremity Edema: * Resolved * Likely 2/2 bacterial endocarditis * Infectious Disease, Dr. Luna on board. Hx of Asthma: * Asymptomatic at this time * Singular 10 mg po qd * Albuterol 2.5 mg IH q6hprn Hx of IV Drug abuse: * Cessation counseling * Urine drug screen positive for cocaine and opiates Hx of Tobacco Use: * Cessation counseling * Nicotine patch Prophylactic Measures: * DVT: Heparin 5000 units sc q8h, * SCDs * Protonix 40 mg po qd Case discussed with attending <Ricci Presley MD - Last Filed: 01/10/17 12:15> Objective - Vital Signs/Intake and Output Vital Signs (last 24 hours): Temp Pulse Resp BP Pulse Ox 98.9 F 82 18 105/59 L 98 01/09/17 16:00 01/09/17 16:00 01/09/17 16:00 01/09/17 16:00 01/09/17 16:00 - Labs Labs: 01/09/17 06:00 01/09/17 06:00 PT 10.8 Seconds (9.9-11.8) 01/04/17 20:30 INR 1.00 (0.93-1.08) 01/04/17 20:30 APTT 30.3 Seconds (23.7-30.8) 01/04/17 20:30 Attending/Attestation - Attestation I have fully participated in the care of the patient.: Yes I have reviewed all pertinent clinical information, including history, physical exam and plan: Yes Notes (Text): Patient was seen and examined with medical case manager .Agreed with resident assessment and plan. 31F with PMHx of asthma and IV drug use with MRSA bacteremia,, repeat blood cultures are negative, discuss with ID, need total 6 weeks of vancomycin therapy as she did not has CORDELL.She will need weekly CBC,CMP and CRP. Management plan was discussed in detail with patient Education was provided.
[2017-01-09 16:49] VITALS: BP 105/59; PULSE 82; TEMP 98.9; O2SAT 98
--- NOTE | 2017-01-09 17:02 | CP.PCM.DIS ---
<Richard Lieberman - Last Filed: 01/09/17 16:55> Provider - Provider Date of Admission: 01/04/17 21:02 Attending physician: Ricci Presley MD Primary care physician: Ora Tavera MD Consults: Infectious disease Cardiology Surgery Interventional Radiology Time Spent in preparation of Discharge (in minutes): 25 Hospital Course - Lab Results Lab Results: Micro Results 01/04/17 22:25 Blood-Venous Blood Culture - Preliminary NO GROWTH AFTER 4 DAYS 01/04/17 21:25 Blood-Venous Blood Culture - Preliminary NO GROWTH AFTER 4 DAYS Most Recent Lab Values WBC 13.5 10^3/ul (4.5-11.0) H D 01/09/17 06:00 RBC 5.16 10^6/uL (3.5-6.1) 01/09/17 06:00 Hgb 11.8 gm/dL (12.0-16.0) L 01/09/17 06:00 Hct 35.7 % (36.0-48.0) L 01/09/17 06:00 MCV 69.2 fL (80.0-105.0) L 01/09/17 06:00 MCH 22.9 pg (25.0-35.0) L 01/09/17 06:00 MCHC 33.1 g/dl (31.0-37.0) 01/09/17 06:00 RDW 19.3 % (11.5-14.5) H 01/09/17 06:00 Plt Count 492 10^3/uL (120.0-450.0) H 01/09/17 06:00 MPV 8.6 fl (7.0-11.0) 01/09/17 06:00 Gran % 53.6 % (50.0-68.0) 01/04/17 20:30 Lymph % (Auto) 38.0 % (22.0-35.0) H 01/04/17 20:30 [place] % (Auto) 5.8 % (1.0-6.0) 01/04/17 20:30 Eos % (Auto) 2.3 % (1.5-5.0) 01/04/17 20:30 Baso % (Auto) 0.3 % (0.0-3.0) 01/04/17 20:30 Gran # 4.13 (1.4-6.5) 01/04/17 20:30 Lymph # 2.9 (1.2-3.4) 01/04/17 20:30 [place] # 0.5 (0.1-0.6) 01/04/17 20:30 Eos # 0.2 (0.0-0.7) 01/04/17 20:30 Baso # 0.02 K/mm3 (0.0-2.0) 01/04/17 20:30 ESR 26 mm/hr (0.0-20.0) H 01/07/17 06:00 PT 10.8 Seconds (9.9-11.8) 01/04/17 20:30 INR 1.00 (0.93-1.08) 01/04/17 20:30 APTT 30.3 Seconds (23.7-30.8) 01/04/17 20:30 Sodium 135 mmol/L (132-148) 01/09/17 06:00 Potassium 4.1 mmol/L (3.6-5.0) 01/09/17 06:00 Chloride 97 mmol/L (98-107) L 01/09/17 06:00 Carbon Dioxide 27 mmol/L (21-33) 01/09/17 06:00 Anion Gap 15 (10-20) 01/09/17 06:00 BUN 8 mg/dL (7-21) 01/09/17 06:00 Creatinine 0.5 mg/dL (0.5-1.4) 01/09/17 06:00 Est GFR ( Amer) > 60 01/09/17 06:00 Est GFR (Non-Af Amer) > 60 01/09/17 06:00 Random Glucose 90 mg/dL (70-110) 01/09/17 06:00 Calcium 9.5 mg/dL (8.4-10.5) 01/09/17 06:00 Total Bilirubin 0.6 mg/dL (0.2-1.3) 01/09/17 06:00 AST 23 U/L (15-39) 01/09/17 06:00 ALT 25 U/L (7-56) 01/09/17 06:00 Alkaline Phosphatase 97 U/L (38-133) 01/09/17 06:00 Lactate Dehydrogenase 553 U/L (333-699) 01/04/17 20:30 Total Creatine Kinase 20 U/L (35-230) L 01/04/17 20:30 Troponin I < 0.01 ng/mL 01/05/17 22:48 C-React Prot High Sens > 15.00 mg/L (1.00-3.00) H 01/07/17 06:30 NT-Pro-B Natriuret Pep 790 pg/mL (0-450) H 01/06/17 06:00 Total Protein 8.3 g/dL (5.8-8.3) 01/09/17 06:00 Albumin 3.8 g/dL (3.0-4.8) 01/09/17 06:00 Globulin 4.5 gm/dL 01/09/17 06:00 Albumin/Globulin Ratio 0.8 (1.1-1.8) L 01/09/17 06:00 Vancomycin Trough 6.7 ug/mL (5.0-10.0) 01/09/17 06:00 Urine Opiates Screen Positive (NEGATIVE) H 01/05/17 04:00 Urine Methadone Screen Negative (NEGATIVE) 01/05/17 04:00 Ur Barbiturates Screen Negative (NEGATIVE) 01/05/17 04:00 Ur Phencyclidine Scrn Negative (NEGATIVE) 01/05/17 04:00 Ur Amphetamines Screen Negative (NEGATIVE) 01/05/17 04:00 U Benzodiazepines Scrn Negative (NEGATIVE) 01/05/17 04:00 U Oth Cocaine Metabols Positive (NEGATIVE) H 01/05/17 04:00 U Cannabinoids Screen Negative (NEGATIVE) 01/05/17 04:00 - Hospital Course Hospital Course: 31F with a PMHx of IV drug abuse, Hepatitis C, asthma, and bipolar disorder who presented to the ED today with complaints of swelling in her lower extremities and face. Pt reports that she had a miscarriage in the ED at [facility] last funmilayo, 12/28/16, and was admitted to the hospital. Pt was found to have MRSA bacteremia. Pt signed out against medical advice on . Pt reports that she used 4 bags of heroin and 2 bottles of cocaine intravenously today. Pt reports occasionally chest tightness. Pt denies fever, chills, shortness of breath, nausea, and vomiting. 01/05: no IV access so sx consulted to place central line/PICC line. Will place on 1:1 once line is in 01/06: Will need PICC line, IV ABX, repeat Echo 01/08: PICC line placement. Removed Right femoral catheter. CORDELL did not demonstrate any vegetations. 01/09: Awaiting subacute rehab placement. Will need 6 weeks Abx. Patient now REFUSING to go to subacute rehab. Risks and complications explained to patient in great detail. Patient still refusing and is going to sign out AMA. Will be given one dose of Vanco 1.5 prior to leaving. Above is a brief description of patient's hospital course. For further details please refer to medical records. Discharge Exam - Head Exam Head Exam: NORMAL INSPECTION - Eye Exam Eye Exam: Normal appearance - ENT Exam ENT Exam: Mucous Membranes Moist - Respiratory Exam Respiratory Exam: NORMAL BREATHING PATTERN - Cardiovascular Exam Cardiovascular Exam: +S1, +S2 - GI/Abdominal Exam GI & Abdominal Exam: Soft - Neurological Exam Neurological exam: Alert, Oriented x3 - Psychiatric Exam Psychiatric exam: Normal Mood - Skin Skin Exam: Dry, Intact, Warm Discharge Plan - Discharge Medications Prescriptions: Alprazolam [Xanax] 0.5 mg PO BID PRN #6 tab PRN Reason: Anxiety Vancomycin 1 GM [Vancomycin 1GM in Normal Saline Addvantage] 1 gm IVPB Q12 #84 bag - Follow Up Plan Condition: FAIR Disposition: AGAINST MEDICAL ADVICE Instructions: MRSA (Methicillin Resistant Staphylococcus Aureus) (DC), Peripherally Inserted Central Catheters and Midline Catheters (DC), Sepsis (DC) , Sepsis (GEN), Bacteremia (DC) Referrals: PCP,NO [Non-Staff] - <Ricci Presley MD - Last Filed: 01/10/17 12:29> Provider - Provider Date of Admission: 01/04/17 21:02 Attending physician: Ricci Presley MD Primary care physician: Ora Tavera MD Hospital Course - Lab Results Lab Results: Micro Results 01/04/17 22:25 Blood-Venous Blood Culture - Final NO GROWTH AFTER 5 DAYS 01/04/17 22:25 Blood-Venous Gram Stain - Final TEST NOT PERFORMED 01/04/17 21:25 Blood-Venous Blood Culture - Final NO GROWTH AFTER 5 DAYS 01/04/17 21:25 Blood-Venous Gram Stain - Final TEST NOT PERFORMED Most Recent Lab Values WBC 13.5 10^3/ul (4.5-11.0) H D 01/09/17 06:00 RBC 5.16 10^6/uL (3.5-6.1) 01/09/17 06:00 Hgb 11.8 gm/dL (12.0-16.0) L 01/09/17 06:00 Hct 35.7 % (36.0-48.0) L 01/09/17 06:00 MCV 69.2 fL (80.0-105.0) L 01/09/17 06:00 MCH 22.9 pg (25.0-35.0) L 01/09/17 06:00 MCHC 33.1 g/dl (31.0-37.0) 01/09/17 06:00 RDW 19.3 % (11.5-14.5) H 01/09/17 06:00 Plt Count 492 10^3/uL (120.0-450.0) H 01/09/17 06:00 MPV 8.6 fl (7.0-11.0) 01/09/17 06:00 Gran % 53.6 % (50.0-68.0) 01/04/17 20:30 Lymph % (Auto) 38.0 % (22.0-35.0) H 01/04/17 20:30 [place] % (Auto) 5.8 % (1.0-6.0) 01/04/17 20:30 Eos % (Auto) 2.3 % (1.5-5.0) 01/04/17 20:30 Baso % (Auto) 0.3 % (0.0-3.0) 01/04/17 20:30 Gran # 4.13 (1.4-6.5) 01/04/17 20:30 Lymph # 2.9 (1.2-3.4) 01/04/17 20:30 [place] # 0.5 (0.1-0.6) 01/04/17 20:30 Eos # 0.2 (0.0-0.7) 01/04/17 20:30 Baso # 0.02 K/mm3 (0.0-2.0) 01/04/17 20:30 ESR 26 mm/hr (0.0-20.0) H 01/07/17 06:00 PT 10.8 Seconds (9.9-11.8) 01/04/17 20:30 INR 1.00 (0.93-1.08) 01/04/17 20:30 APTT 30.3 Seconds (23.7-30.8) 01/04/17 20:30 Sodium 135 mmol/L (132-148) 01/09/17 06:00 Potassium 4.1 mmol/L (3.6-5.0) 01/09/17 06:00 Chloride 97 mmol/L (98-107) L 01/09/17 06:00 Carbon Dioxide 27 mmol/L (21-33) 01/09/17 06:00 Anion Gap 15 (10-20) 01/09/17 06:00 BUN 8 mg/dL (7-21) 01/09/17 06:00 Creatinine 0.5 mg/dL (0.5-1.4) 01/09/17 06:00 Est GFR ( Amer) > 60 01/09/17 06:00 Est GFR (Non-Af Amer) > 60 01/09/17 06:00 Random Glucose 90 mg/dL (70-110) 01/09/17 06:00 Calcium 9.5 mg/dL (8.4-10.5) 01/09/17 06:00 Total Bilirubin 0.6 mg/dL (0.2-1.3) 01/09/17 06:00 AST 23 U/L (15-39) 01/09/17 06:00 ALT 25 U/L (7-56) 01/09/17 06:00 Alkaline Phosphatase 97 U/L (38-133) 01/09/17 06:00 Lactate Dehydrogenase 553 U/L (333-699) 01/04/17 20:30 Total Creatine Kinase 20 U/L (35-230) L 01/04/17 20:30 Troponin I < 0.01 ng/mL 01/05/17 22:48 C-React Prot High Sens > 15.00 mg/L (1.00-3.00) H 01/07/17 06:30 NT-Pro-B Natriuret Pep 790 pg/mL (0-450) H 01/06/17 06:00 Total Protein 8.3 g/dL (5.8-8.3) 01/09/17 06:00 Albumin 3.8 g/dL (3.0-4.8) 01/09/17 06:00 Globulin 4.5 gm/dL 01/09/17 06:00 Albumin/Globulin Ratio 0.8 (1.1-1.8) L 01/09/17 06:00 Vancomycin Trough 6.7 ug/mL (5.0-10.0) 01/09/17 06:00 Urine Opiates Screen Positive (NEGATIVE) H 01/05/17 04:00 Urine Methadone Screen Negative (NEGATIVE) 01/05/17 04:00 Ur Barbiturates Screen Negative (NEGATIVE) 01/05/17 04:00 Ur Phencyclidine Scrn Negative (NEGATIVE) 01/05/17 04:00 Ur Amphetamines Screen Negative (NEGATIVE) 01/05/17 04:00 U Benzodiazepines Scrn Negative (NEGATIVE) 01/05/17 04:00 U Oth Cocaine Metabols Positive (NEGATIVE) H 01/05/17 04:00 U Cannabinoids Screen Negative (NEGATIVE) 01/05/17 04:00 Attending/Attestation - Attestation I have personally seen and examined this patient.: Yes I have fully participated in the care of the patient.: Yes I have reviewed all pertinent clinical information, including history, physical exam and plan: Yes Notes (Text): 01/10/17 12:22 31F with PMHx of asthma and IV drug use with MRSA bacteremia,, repeat blood cultures are negative, discuss with ID, need total 6 weeks of vancomycin therapy as she did not has CORDELL.She will need weekly CBC,CMP and CRP. She was accepted by rehab for IV antibiotics.She was agreeable initially but latter on decided not to go.The issue of treatment of MRSA bacteremia was discussed in detail with he, she is alert,awake and oriented.She signed against medical advice,PICC line was removed .Patient left the hospital. Prognosis is guarded.
--- NOTE | 2017-01-09 19:44 | CP.PCM.PN ---
Subjective - Date & Time of Evaluation Date of Evaluation: 01/09/17 Time of Evaluation: 10:50 - Subjective Subjective: Comfortable in bed, not in distress, afebrile. Objective - Vital Signs/Intake and Output Vital Signs (last 24 hours): Temp Pulse Resp BP Pulse Ox 98.9 F 82 18 105/59 L 98 01/09/17 16:00 01/09/17 16:00 01/09/17 16:00 01/09/17 16:00 01/09/17 16:00 Intake and Output: 01/09/17 01/10/17 18:59 06:59 Intake Total 780 Balance 780 - Medications Medications: Current Medications Albuterol Sulfate (Albuterol 0.083% Inhal Mirna (2.5 Mg/3 Ml) Ud) 2.5 mg IH [id number] PRN PRN Reason: Shortness of Breath Alprazolam (Xanax) 0.5 mg PO BID PRN; Protocol PRN Reason: Anxiety Last Admin: 01/08/17 22:39 Dose: 0.5 mg Heparin Sodium (Porcine) (Heparin) 5,000 units SC Q8H [place] PRN Reason: Protocol Last Admin: 01/09/17 16:02 Dose: Not Given Vancomycin HCl (Vancomycin 1gm) 1 gm in 250 mls @ 167 mls/hr IVPB Q12H [place] PRN Reason: Protocol Last Admin: 01/09/17 10:00 Dose: Not Given Montelukast Sodium (Singulair) 10 mg PO DAILY [facility] Last Admin: 01/09/17 09:58 Dose: Not Given Nicotine (Nicoderm Cq) 1 patch TD DAILY [facility] Last Admin: 01/09/17 09:51 Dose: 1 patch Pantoprazole Sodium (Protonix Ec Tab) 40 mg PO 0630 [facility] Last Admin: 01/09/17 08:13 Dose: 40 mg - Labs Labs: 01/09/17 06:00 01/09/17 06:00 PT 10.8 Seconds (9.9-11.8) 01/04/17 20:30 INR 1.00 (0.93-1.08) 01/04/17 20:30 APTT 30.3 Seconds (23.7-30.8) 01/04/17 20:30 - Constitutional Appears: Non-toxic, No Acute Distress - Head Exam Head Exam: NORMAL INSPECTION - ENT Exam ENT Exam: Mucous Membranes Moist - Neck Exam Neck Exam: absent: Lymphadenopathy, Meningismus - Respiratory Exam Respiratory Exam: Decreased Breath Sounds - Cardiovascular Exam Cardiovascular Exam: +S1, +S2 - GI/Abdominal Exam GI & Abdominal Exam: Soft. absent: Tenderness Assessment and Plan - Assessment and Plan (Free Text) Plan: Assessment Persistent Methicillin-resistant Staph aureus bacteremia in a patient with active IV drug use; no skin and soft tissue infection noted; unable to rule out endocarditis S/P Active and vaginal bleeding S/P Right ankle cellulitis with abscess S/P I and D current IV drug use (heroin and cocaine) asthma history of pyelonephritis positive Hep. C antibody Plan continue Vancomycin; although the 2D echo does not show vegetations, we will treat the patient like she has endocarditis since the bacteremia was persistent and she is an active IV drug user; repeat blood cx are negative - today is day 6 of Vancomycin from first negative blood cx; should complete 4-6 weeks of antibiotics with weekly ESR, CRP, CBC, CMP and Vanco trough Vanco trough today is low - will give an additional 1.5 gm of IV Vancomycin today will continue to follow clinically while the patient is in the hospital
--- NOTE | 2017-01-10 08:19 | OP ---
PROCEDURE DATE: 01/05/2017 PREOPERATIVE DIAGNOSES: Bacteremia and poor IV access. POSTOPERATIVE DIAGNOSES: Bacteremia and poor IV access. PROCEDURE DONE: Right femoral central line placement. SURGEON: Paco Franco MD WEDGER AND GLUER: Murtaza Whitfield, PGY 2 ANESTHESIA: Local. ESTIMATED BLOOD LOSS: Around 5 mL. DRAINS: None. PATHOLOGY: None. COMPLICATIONS: None. INTRAOPERATIVE FINDINGS: The patient had a patent right femoral vein. INTRAOPERATIVE STEPS: This is a 31-year-old female who needed central venous access due to the bacteremia and poor IV access and patient was consented for the central line placement, placed supine on the patient's bed and the right inguinal area was prepped and draped and under ultrasound guidance, the right femoral vein was identified and local anesthesia was injected and the guidewire was placed in right femoral vein and the triple lumen catheter was also placed. All the ports were flushed and the catheter was secured to the skin. Dry sterile dressing was applied. The patient tolerated the procedure well. Count of instruments and gauze was correct. Paco Franco MD cc: [id number] TT: 01/10/2017 08:18:29 en MTDD
== END 2017-01-09 20:00 | disposition left against medical advice (07) | DRG 423 ==
LOC: ED 20:07 → ERH 21:02 → 2RSO 23:30 → 2RNO 01-05 09:10 → 5RSO 01-06 12:46
PROVIDERS: ADMIT Internal Medicine; ATTEND Internal Medicine
PROC: 06HM33Z Insertion of Infusion Device into Right Femoral Vein, Percutaneous Approach (ICD-10-PCS; 2017-01-05)
PROC: B54BZZA Ultrasonography of Right Lower Extremity Veins, Guidance (ICD-10-PCS; 2017-01-05)
PROC: 02HV33Z Insertion of Infusion Device into Superior Vena Cava, Percutaneous Approach (ICD-10-PCS; principal; 2017-01-07)
PROC: B548ZZA Ultrasonography of Superior Vena Cava, Guidance (ICD-10-PCS; 2017-01-07)
DX: R78.81 Bacteremia (principal); B95.62 Methicillin resistant Staphylococcus aureus infection as the cause of diseases classified elsewhere; R07.89 Other chest pain; F14.10 Cocaine abuse, uncomplicated; B19.20 Unspecified viral hepatitis C without hepatic coma; E87.6 Hypokalemia; N61.1 Abscess of the breast and nipple; J45.909 Unspecified asthma, uncomplicated; F31.9 Bipolar disorder, unspecified; F17.210 Nicotine dependence, cigarettes, uncomplicated; F32.9 Major depressive disorder, single episode, unspecified; F41.9 Anxiety disorder, unspecified; I08.1 Rheumatic disorders of both mitral and tricuspid valves; Z88.1 Allergy status to other antibiotic agents; Z80.8 Family history of malignant neoplasm of other organs or systems; Z80.0 Family history of malignant neoplasm of digestive organs

== ENCOUNTER 2017-05-04 00:51 | Inpatient (IN) | payer MEDICAID, OTHER ==
[2017-05-04 00:51] VITALS: BMI 23.0
--- NOTE | 2017-05-04 01:45 | ED PDOC ---
Arrival/HPI - General Chief Complaint: Abnormal Skin Integrity Time Seen by Provider: 05/04/17 01:02 Historian: Patient - History of Present Illness Narrative History of Present Illness (Text): 05/04/17 01:08 A 32 year old female, with no known past medical history, presents to the emergency department complaining of left hand abscess. Patient reports abscess formed due to drug injection. Patient denies of any other complaints. Symptom Onset: Sudden Symptom Course: Unchanged Past Medical History - Provider Review Nursing Documentation Reviewed: Yes - Past History Past History: No Previous - Infectious Disease Hx of Infectious Diseases: None - Tetanus Immunization Tetanus Immunization: Unknown - Cardiac Hx Cardiac Disorders: No Hx Cardiac Arrhythmia: No - Pulmonary Hx Respiratory Disorders: Yes Hx Asthma: Yes Hx Bronchitis: Yes Hx Chronic Obstructive Pulmonary Disease (COPD): No Hx Emphysema: No Hx Pneumonia: Yes - Neurological Hx Neurological Disorder: No - HEENT Hx HEENT Disorder: Yes (eyeglasses) - Renal Other/Comment: pylonephritis - Endocrine/Metabolic Hx Endocrine Disorders: No - Hematological/Oncological Hx Blood Disorders: Yes Hx Blood Transfusions: Yes Hx Blood Transfusion Reaction: No Hx Hepatitis C: Yes Other/Comment: MRSA - Integumentary Hx Dermatological Disorder: No Other/Comment: multiple tatoos - Musculoskeletal/Rheumatological Hx Falls: No - Gastrointestinal Hx Gastrointestinal Disorders: Yes (acute colitis, abd pain, constipation) - Genitourinary/Gynecological Hx Genitourinary Disorders: (fibroids) Hx Urinary Tract Infection: Yes - Psychiatric Hx Psychophysiologic Disorder: Yes Hx Anxiety: Yes Hx Bipolar Disorder: Yes Hx Depression: Yes Hx Substance Use: Yes (heroin, cocaine) - Past Surgical History Past Surgical History: No Previous - Surgical History Other/Comment: "bladder surgery during childhood", reflux reimplantation tube from bladder to r kidney - Anesthesia Hx Anesthesia: No Hx Anesthesia Reactions: No Hx Malignant Hyperthermia: No - Suicidal Assessment Feels Threatened In Home Enviroment: No Family/Social History - Physician Review Nursing Documentation Reviewed: Yes Family/Social History: No Known Family HX Smoking Status: Heavy Smoker > 10 Cigarettes Daily Hx Alcohol Use: Yes Hx Substance Use: Yes (heroin, cocaine) Substance used: heroin, opiate user - pt stopped using approximately one month Amount: 4 Hx Substance Use Treatment: No Allergies/Home Meds Allergies/Adverse Reactions: Allergies Cephalosporins Allergy (Verified 01/04/17 20:12) SWELLING Review of Systems - Physician Review All systems were reviewed & negative as marked: Yes - Review of Systems Constitutional: absent: Fevers, Night Sweats Respiratory: absent: SOB Cardiovascular: absent: Chest Pain Gastrointestinal: absent: Abdominal Pain, Diarrhea, Nausea, Vomiting Skin: Abscess (left hand abscess) Physical Exam Vital Signs Reviewed: Yes Vital Signs Temp Pulse Resp BP Pulse Ox 05/04/17 03:30 86 16 127/75 93 L 05/04/17 00:54 99.6 F 94 H 18 148/89 96 Temperature: Afebrile Blood Pressure: Normal Pulse: Regular Respiratory Rate: Normal Appearance: Positive for: Well-Appearing Pain Distress: None Mental Status: Positive for: Alert and Oriented X 3 - Systems Exam Head: Present: Atraumatic, Normocephalic Pupils: Present: PERRL Extroacular Muscles: Present: EOMI Conjunctiva: Present: Normal Mouth: Present: Moist Mucous Membranes Neck: Present: Normal Range of Motion Respiratory/Chest: Present: Clear to Auscultation, Good Air Exchange. No: Respiratory Distress, Accessory Muscle Use Cardiovascular: Present: Regular Rate and Rhythm, Normal S1, S2. No: Murmurs Abdomen: Present: Normal Bowel Sounds. No: Tenderness, Distention, Peritoneal Signs Back: Present: Normal Inspection Upper Extremity: Present: Other (left hand abscess) Lower Extremity: Present: Normal Inspection. No: Edema Neurological: Present: GCS=15, CN II-XII Intact, Speech Normal Skin: Present: Warm, Dry, Normal Color. No: Rashes Psychiatric: Present: Alert, Oriented x 3, Normal Insight, Normal Concentration Medical Decision Making ED Course and Treatment: 05/04/17 01:15 Impression: 32 year old female with left hand abscess. Physical exam shows left hand abscess. Plan: -- Left Hand X-Ray -- Labs -- Blood Culture -- Aztreonam -- Protonix -- Tylenol -- Vancomycin -- Reassess and disposition Prior Visits: Notes and results from previous visits were reviewed. Patient was last seen in the emergency department on 01/04/2017 for chest discomfort. Patient was admitted. Progress Notes: case d/w dr stephens and medical research assistant for admission 05/08/17 01:12 - Lab Interpretations Microbiology Results: Microbiology Results 05/04/17 01:45 Blood-Venous Blood Culture - Preliminary NO GROWTH AFTER 3 DAYS 05/04/17 01:29 Blood-Venous Blood Culture - Preliminary NO GROWTH AFTER 3 DAYS Lab Results: 05/04/17 01:29 05/04/17 01:29 Lab Results 05/04/17 01:29: Beta HCG, Quant < 2.39 05/04/17 01:29: Sodium 139, Potassium 5.2 H, Chloride 101, Carbon Dioxide 25, Anion Gap 18, BUN 8, Creatinine 0.5, Est GFR ( Amer) > 60, Est GFR (Non- Af Amer) > 60, Random Glucose 88, Calcium 9.5, Total Bilirubin 0.6, AST 36, ALT 23, Alkaline Phosphatase 69, Total Protein 8.1, Albumin 4.2, Globulin 3.9, Albumin/Globulin Ratio 1.1 05/04/17 01:29: WBC 7.5 D, RBC 4.04, Hgb 8.4 L, Hct 26.0 L, MCV 64.4 L, MCH 20.8 L, MCHC 32.3, RDW 15.7 H, Plt Count 167, MPV 10.0, Gran % 53.4, Lymph % ( Auto) 37.6 H, [place] % (Auto) 5.3, Eos % (Auto) 3.6, Baso % (Auto) 0.1, Gran # 4.02, Lymph # 2.8, [place] # 0.4, Eos # 0.3, Baso # 0.01 I have reviewed the lab results: Yes - Medication Orders Current Medication Orders: Discontinued Medications Acetaminophen (Tylenol 325mg Tab) 650 mg PO STAT STA Stop: 05/04/17 02:19 Last Admin: 05/04/17 02:34 Dose: 650 mg Acetaminophen (Tylenol 325mg Tab) 650 mg PO Q6H PRN PRN Reason: Pain, moderate (4-7) Last Admin: 05/04/17 17:37 Dose: 650 mg Re-Assess: MAR Pain/Vitals Document 05/04/17 20:00 (Rec: 05/05/17 00:22 [id number] Pain Reassessment Is This A Pain ReAssessment? Yes Sleep Is patient sleeping during reassessment? Yes Ferrous Sulfate (Feosol) 324 mg PO TID [place] Last Admin: 05/06/17 14:30 Dose: Not Given Non-Admin Reason: Patient Refused Gadodiamide (Omniscan No Safepak) Confirm Administered Dose 4,305 mg IV .STK- MED ONE Stop: 05/04/17 14:29 Heparin Sodium (Porcine) (Heparin) 5,000 units SC Q12 [place] PRN Reason: Protocol Last Admin: 05/06/17 09:42 Dose: Not Given Non-Admin Reason: Patient Refused Aztreonam (Azactam 1 Gm) 100 mls @ 100 mls/hr IVPB STAT STA PRN Reason: Protocol Stop: 05/04/17 03:14 Last Admin: 05/04/17 02:22 Dose: 100 mls/hr Vancomycin HCl (Vancomycin 1gm) 1 gm in 250 mls @ 167 mls/hr IVPB STAT STA PRN Reason: Protocol Stop: 05/04/17 03:44 Last Admin: 05/04/17 04:34 Dose: 167 mls/hr Vancomycin HCl (Vancomycin 1gm) 1 gm in 250 mls @ 167 mls/hr IVPB Q12H [place] PRN Reason: Protocol Last Admin: 05/06/17 19:17 Dose: Meropenem 1g/NS 100mL IVPB (Meropenem 1g/Ns 100ml Ivpb) 1 gm in 100 mls @ 100 mls/hr IVPB Q8 [place] PRN Reason: Protocol Stop: 05/14/17 14:01 Last Admin: 05/06/17 19:17 Dose: Lactobacillus Acidophilus (Bacid Acidophilus) 1 cap PO BID [facility] Last Admin: 05/06/17 09:40 Dose: 1 cap Levofloxacin/Dextrose (Levaquin 750mg) 750 mg IVPB Q24H [facility] Last Admin: 05/05/17 13:00 Dose: Lorazepam (Ativan) 2 mg IVP Q6H PRN; Protocol PRN Reason: Seizure activity Oxycodone/Acetaminophen (Percocet 5/325 Mg Tab) 1 tab PO STAT STA Stop: 05/04/17 04:35 Last Admin: 05/04/17 04:59 Dose: 1 tab Pantoprazole Sodium (Protonix Ec Tab) 40 mg PO 0600 [facility] Last Admin: 05/06/17 07:31 Dose: Not Given Non-Admin Reason: Patient Refused Trimethoprim/Sulfamethoxazole (Bactrim Ds Tab) 1 tab PO BID [place] PRN Reason: Protocol Last Admin: 05/06/17 09:40 Dose: 1 tab - Scribe Statement The provider has reviewed the documentation as recorded by the Bimal Kaufman Provider Scribe Attestation: All medical record entries made by the Loveibraheel were at my direction and personally dictated by me. I have reviewed the chart and agree that the record accurately reflects my personal performance of the history, physical exam, medical decision making, and the department course for this patient. I have also personally directed, reviewed, and agree with the discharge instructions and disposition. Disposition/Present on Arrival - Present on Arrival Any Indicators Present on Arrival: No History of DVT/PE: No History of Uncontrolled Diabetes: No Urinary Catheter: No History of Decub. Ulcer: No History Surgical Site Infection Following: None - Disposition Have Diagnosis and Disposition been Completed?: Yes Diagnosis: Cellulitis of hand, left Disposition: HOSPITALIZED Disposition Time: 02:30 Condition: GOOD
[2017-05-04 01:55] LABS: BASO # 0.01 K/mm3 (0.0-2.0); BASO % 0.1 % (0.0-3.0); EOS # 0.3 (0.0-0.7); EOS % 3.6 % (1.5-5.0); GRAN # 4.02 (1.4-6.5); GRAN % 53.4 % (50.0-68.0); LYMPH # 2.8 (1.2-3.4); LYMPH % 37.6 % (22.0-35.0); MEAN CORPUSCULAR HEMOGLOBIN 20.8 pg (25.0-35.0); MEAN CORPUSCULAR HGB CONC 32.3 g/dl (31.0-37.0); MONO # 0.4 (0.1-0.6); MONO % 5.3 % (1.0-6.0); RED CELL DISTRIBUTION WIDTH 15.7 % (11.5-14.5); WHITE BLOOD COUNT 7.5 10^3/ul (4.5-11.0)
[2017-05-04 02:06] LABS: MEAN CELL VOLUME 64.4 fl (80.0-105.0)
[2017-05-04 02:11] LABS: ALB/GLOB RATIO 1.1 (1.1-1.8); ALKALINE PHOSPHATASE 69 U/L (38-133); ALT/SGPT 23 U/L (7-56); AST/SGOT 36 U/L (15-39); BILIRUBIN,TOTAL 0.6 mg/dL (0.2-1.3); BLOOD UREA NITROGEN 8 mg/dL (7-21); CALCIUM 9.5 mg/dL (8.4-10.5); CARBON DIOXIDE 25 mmol/L (21-33); CHLORIDE 101 mmol/L (98-107); GFR AFRICAN-AMERICAN > 60; GLUCOSE,RANDOM 88 mg/dL (70-110); POTASSIUM 5.2 mmol/L (3.6-5.0); SODIUM 139 mmol/L (132-148); TOTAL PROTEIN 8.1 g/dL (5.8-8.3)
[2017-05-04] MEDS ORDERED: Aztreonam 1 Gm in NS 100mL 100 ML IVPB STA (02:15)
[2017-05-04] MEDS ORDERED: Vancomycin 1gm in NS 250ml 1 GM/250 ML BAG IVPB STA (02:15)
--- NOTE | 2017-05-04 04:01 | CP.PCM.CON ---
History of Present Illness - History of Present Illness History of Present Illness: General Surgery Consult note for Dr. Lia Rodriguez, PGY-1 Pt S & E at bedside. 32F w/PMH sig for asthma, Hep C (Untreated) and IVDU w/hx of abscess formation consulted for Right hand pain/swelling/redness x 2-3 days. Pain is constant, severe, radiates up arm from hand. No alleviating factors identified, pain aggravated by touch/motion. Admits to heroin/cocaine use, injects heroin in hands & feet. Denies N/V/F/C, SOB, CP, ab pain, other complaints. PMH: Asthma, Hep C (untreated), previous PSH: Ureteral repair (as child) All: Cephalosporins SH: Denies ETOH or tobacco use, IVDU (heroin, cocaine only injected in hand) Review of Systems - Review of Systems All systems: reviewed and no additional remarkable complaints except - Constitutional Constitutional: absent: Chills, Fever - EENT Eyes: absent: Change in Vision Ears: absent: Dizziness - Cardiovascular Cardiovascular: absent: Chest Pain, Leg Edema - Gastrointestinal Gastrointestinal: absent: Abdominal Pain, Nausea, Vomiting - Genitourinary Genitourinary: absent: Change in Urinary Stream - Integumentary Integumentary: Erythema, Rash, Skin Pain, Swelling - Neurological Neurological: absent: Dizziness Past Patient History - Infectious Disease Hx of Infectious Diseases: None - Tetanus Immunizations Tetanus Immunization: Unknown - Past Medical History & Family History Past Medical History?: Yes - Past Social History Smoking Status: Heavy Smoker > 10 Cigarettes Daily - CARDIAC Hx Cardiac Disorders: No Hx Cardia Arrhythmia: No - PULMONARY Hx Respiratory Disorders: Yes Hx Asthma: Yes Hx Bronchitis: Yes Hx Chronic Obstructive Pulmonary Disease (COPD): No Hx Emphysema: No Hx Pneumonia: Yes - NEUROLOGICAL Hx Neurological Disorder: No - HEENT Hx HEENT Problems: Yes (eyeglasses) - RENAL Other/Comment: pylonephritis - ENDOCRINE/METABOLIC Hx Endocrine Disorders: No - HEMATOLOGICAL/ONCOLOGICAL Hx Blood Disorders: Yes Hx Blood Transfusions: Yes Hx Blood Transfusion Reaction: No Hx Hepatitis C: Yes Other/Comment: MRSA - INTEGUMENTARY Hx Dermatological Problems: No Other/Comment: multiple tatoos - MUSCULOSKELETAL/RHEUMATOLOGICAL Hx Falls: No - GASTROINTESTINAL Hx Gastrointestinal Disorders: Yes (acute colitis, abd pain, constipation) - GENITOURINARY/GYNECOLOGICAL Hx Genitourinary Disorders: (fibroids) Hx Urinary Tract Infection: Yes - PSYCHIATRIC Hx Psychophysiologic Disorder: Yes Hx Anxiety: Yes Hx Bipolar Disorder: Yes Hx Depression: Yes Hx Substance Use: Yes (heroin, cocaine) - SURGICAL HISTORY Other/Comment: "bladder surgery during childhood", reflux reimplantation tube from bladder to r kidney - ANESTHESIA Hx Anesthesia: No Hx Anesthesia Reactions: No Hx Malignant Hyperthermia: No Meds Allergies/Adverse Reactions: Allergies Allergy/AdvReac Type Severity Reaction Status Date / Time Cephalosporins Allergy SWELLING Verified 01/04/17 20:12 - Medications Medications: Current Medications Acetaminophen (Tylenol 325mg Tab) 650 mg PO Q6H PRN PRN Reason: Pain, moderate (4-7) Pantoprazole Sodium (Protonix Ec Tab) 40 mg PO 0600 [place] Physical Exam - Constitutional Appears: Non-toxic, Other (labile) - Head Exam Head Exam: ATRAUMATIC, NORMAL INSPECTION, NORMOCEPHALIC - Eye Exam Eye Exam: EOMI, Normal appearance - ENT Exam ENT Exam: Mucous Membranes Moist, Normal Exam - Neck Exam Neck exam: Positive for: Full Rom, Normal Inspection - Respiratory Exam Respiratory Exam: Clear to Auscultation Bilateral, NORMAL BREATHING PATTERN - Cardiovascular Exam Cardiovascular Exam: REGULAR RHYTHM, +S1, +S2 - GI/Abdominal Exam GI & Abdominal Exam: Normal Bowel Sounds, Soft. absent: Tenderness - Extremities Exam Extremities exam: Positive for: tenderness (Left hand, diffusely). Negative for : normal inspection Additional comments: Left hand with marked swelling of hand, digits and forearm; erythema from fingertips to mid forearm, fluctuant mass on dorsal aspect, increased warmth. Decreased motor use of fingers, pt incapable of making a fist or flexing fingers - Neurological Exam Neurological exam: Alert, CN II-XII Intact, Oriented x3 - Psychiatric Exam Psychiatric exam: Normal Affect, Normal Mood - Skin Skin Exam: Dry, Intact Additional comments: See extremity exam for Left hand findings Results - Vital Signs Recent Vital Signs: Last Vital Signs Temp 99.6 F 05/04/17 00:54 Pulse 86 05/04/17 03:30 Resp 16 05/04/17 03:30 BP 127/75 05/04/17 03:30 Pulse Ox 93 L 05/04/17 03:30 - Labs Result Diagrams: 05/04/17 01:29 05/04/17 01:29 Assessment & Plan - Assessment and Plan (Free Text) Assessment: 32F w/PMH sig for IVDU with abscess on dorsal aspect of left hand, swelling, and decreased motor capability of hand/fingers Plan: Incision and drainage of Left hand abscess, packing and dressing placed IV Abx Pain mgmt FU wound cx consent in chart Monitor Will DW attending Jennifer, PGY-1 - Date & Time Date: 05/04/17 Time: 04:13 - Incision & Drainage Of Abscess Anesthesia: Lidocaine 1% Used During Procedure: Continuous Pulse Oximetry, Glove Examiner Prep Used: Betadine Procedure: Incised W/Scalpel Blade#: (15), Drained Pus, Irrigated Cavity W/ Saline, Probed To Break Up Loculations, Packed W/Gauze, Cultures Obtained And Sent To Lab
--- NOTE | 2017-05-04 04:28 | CP.PCM.HP ---
Addendum entered and electronically signed by Danyelle Serrano DO 05/04/17 11:03: MRI L hand w/ and w/o contrast ordered to rule out osteomyelitis- will follow up ESR, CRP, procalcitonin ordered- will follow up HIV1&2 Ab ordered in light of patient's history of extensive IVDA and Hep C- will follow up Patient anemia work up consistent with PILAR: Iron 13 TIBC 309 %sat 4 Will follow up ferritin, vitamin b12, and folate Patient started on Feosol 325mg po tid Florastor 1 tab bid ordered as patient is on IV abx Ativan 2mg ivp q6 prn ordered for seizure/withdrawal ppx considering hx of IVDA and cocaine Discussed with attending Dr. David Serrano PGY2 Original Note: <Alejandro Simmons - Last Filed: 05/04/17 04:46> History of Present Illness - History of Present Illness History of Present Illness: Alejandro Simmons DO, PGY-1, Night Float CC: Left hand pain HPI: 32 year old IV drug abuser with a past medical history significant for HCV and asthma who presents with a large, abscess on the dorsum of the right. She states one week ago she tried shooting heroin in the left hand, missed the vein , and instead infiltrated elsewhere. Initially, the pain was moderate enough for her to carry out her daily functions; however, in the past two days the area she inoculated has become increasingly painful, red, raised and inflamed. Nothing she has done relieves the pain, movement of the intrinsic hand muscles worsens it, and it is constant, throbbing, and scaled 10/10 in severity, and non -radiating. She denies any numbness or loss of motor activity to the left limb. She further denies to having any fever, chills, chest pain, dyspnea, palpitations, or other skin lesions. Important to note, she is a daily IVDU of heroin, also does cocaine (not sure of the route of administration). The last time she shot up was at 6 PM today. 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 PMD: Dr. Ora Tavera per chart review PMH: HCV, Asthma Medications: None Allergies: Cephalosporins Surgeries: Ureteral repair at age Family History: Non-contributory Present on Admission - Present on Admission Any Indicators Present on Admission: No Review of Systems - Constitutional Constitutional: As Per HPI Past Patient History - Infectious Disease Hx of Infectious Diseases: None - Tetanus Immunizations Tetanus Immunization: Unknown - Past Medical History & Family History Past Medical History?: Yes - Past Social History Smoking Status: Heavy Smoker > 10 Cigarettes Daily - CARDIAC Hx Cardiac Disorders: No Hx Cardia Arrhythmia: No - PULMONARY Hx Respiratory Disorders: Yes Hx Asthma: Yes Hx Bronchitis: Yes Hx Chronic Obstructive Pulmonary Disease (COPD): No Hx Emphysema: No Hx Pneumonia: Yes - NEUROLOGICAL Hx Neurological Disorder: No - HEENT Hx HEENT Problems: Yes (eyeglasses) - RENAL Other/Comment: pylonephritis - ENDOCRINE/METABOLIC Hx Endocrine Disorders: No - HEMATOLOGICAL/ONCOLOGICAL Hx Blood Disorders: Yes Hx Blood Transfusions: Yes Hx Blood Transfusion Reaction: No Hx Hepatitis C: Yes Other/Comment: MRSA - INTEGUMENTARY Hx Dermatological Problems: No Other/Comment: multiple tatoos - MUSCULOSKELETAL/RHEUMATOLOGICAL Hx Falls: No - GASTROINTESTINAL Hx Gastrointestinal Disorders: Yes (acute colitis, abd pain, constipation) - GENITOURINARY/GYNECOLOGICAL Hx Genitourinary Disorders: (fibroids) Hx Urinary Tract Infection: Yes - PSYCHIATRIC Hx Psychophysiologic Disorder: Yes Hx Anxiety: Yes Hx Bipolar Disorder: Yes Hx Depression: Yes Hx Substance Use: Yes (heroin, cocaine) - SURGICAL HISTORY Other/Comment: "bladder surgery during childhood", reflux reimplantation tube from bladder to r kidney - ANESTHESIA Hx Anesthesia: No Hx Anesthesia Reactions: No Hx Malignant Hyperthermia: No Meds Allergies/Adverse Reactions: Allergies Allergy/AdvReac Type Severity Reaction Status Date / Time Cephalosporins Allergy SWELLING Verified 01/04/17 20:12 Physical Exam - Constitutional Appears: Non-toxic, Unkempt - Head Exam Head Exam: ATRAUMATIC, NORMOCEPHALIC - Eye Exam Eye Exam: EOMI, Normal appearance - ENT Exam ENT Exam: Mucous Membranes Moist, Normal Oropharynx - Neck Exam Neck exam: Positive for: Normal Inspection. Negative for: Tenderness - Respiratory Exam Respiratory Exam: Clear to Auscultation Bilateral, NORMAL BREATHING PATTERN - Cardiovascular Exam Cardiovascular Exam: RRR, +S1, +S2 - GI/Abdominal Exam GI & Abdominal Exam: Normal Bowel Sounds, Soft - Extremities Exam Additional comments: left dorsum of the hand has raised, red, abscess appearance with left hand erythema and swelling that spreads proximally past the radiocarpal-ulnar joint Right and left radial pulses graded 2/4 and 1/4, respectively - Back Exam Back exam: absent: CVA tenderness (L), CVA tenderness (R) - Neurological Exam Neurological exam: Alert, CN II-XII Intact, Oriented x3 - Psychiatric Exam Psychiatric exam: Normal Affect, Normal Mood - Skin Skin Exam: Erythema Additional comments: left hand Results - Vital Signs Recent Vital Signs: Last Vital Signs Temp 99.6 F 05/04/17 00:54 Pulse 86 05/04/17 03:30 Resp 16 05/04/17 03:30 BP 127/75 05/04/17 03:30 Pulse Ox 93 L 05/04/17 03:30 - Labs Result Diagrams: 05/04/17 01:29 05/04/17 01:29 Assessment & Plan - Assessment and Plan (Free Text) Assessment: 32 year old IVDU with a past medical history significant for HCV and asthma who presents with a cellulitis of left hand. Plan: 1) Complicated cellulitis of left hand in an IVD abuser (heroin, cocaine). - IV Vancomycin and Aztreonam (pseudomonas coverage) started in ED. Please note patient has cephalosporin allergy. - General Surgery consulted - Urine Drug Screen ordered - Repeat CBC and CMP in AM - Elevation of left arm/hand - Tylenol for fever/analgesia - Percocet 5 mg for analgesia - Date & Time Date: 05/04/17 Time: 04:58 <Dony Montgomery MD - Last Filed: 05/14/17 11:10> Results - Vital Signs Recent Vital Signs: Last Vital Signs Temp 97.9 F 05/06/17 08:15 Pulse 73 05/06/17 08:15 Resp 18 05/06/17 08:15 BP 100/51 L 05/06/17 08:15 Pulse Ox 95 05/06/17 08:15 - Labs Result Diagrams: 05/04/17 01:29 05/04/17 06:40 Attending/Attestation - Attestation I have personally seen and examined this patient.: Yes I have fully participated in the care of the patient.: Yes I have reviewed all pertinent clinical information: Yes Notes (Text): -I agree with the above H&P completed by the resident physician.
[2017-05-04] MEDS ORDERED: Oxycodone/Acetaminophen 5/325 mg Tab PO STA (04:34)
[2017-05-04] MEDS: Pantoprazole 40 mg EC Tab PO SCH (06:49)
[2017-05-04] MEDS: levoFLOXacin 750 mg in D5W 150 ML BAG IVPB SCH (08:34)
--- NOTE | 2017-05-04 09:28 | RAD ---
PROCEDURE: Left Hand Radiographs. HISTORY: r/o fb COMPARISON: None. FINDINGS: BONES: No evidence of acute displaced fracture nor dislocation. No evidence of cortical destructive changes seen JOINTS: Normal. No osteoarthritic changes. SOFT TISSUES: Significant dorsal soft tissue swelling consistent with cellulitis. . OTHER FINDINGS: None. IMPRESSION: Significant dorsal soft tissue swelling consistent with cellulitis. No obvious cortical destructive changes. No evidence of acute displaced fracture nor dislocation. If symptoms persist or occult fracture suspected clinically consider repeat radiographs in 5-10 days as most fractures should become radiographically evident in this timeframe.
[2017-05-04 09:59] LABS: IRON 13 ug/dL (45-180)
[2017-05-04] MEDS: Lactobacillus Acidophilus 500 MU Cap PO SCH ×2 (12:33→17:35)
[2017-05-04] MEDS ORDERED: Gadodiamide 287 MG/ML VIAL (15ML) IV ONE (14:28)
[2017-05-04] MEDS: Vancomycin 1gm in NS 250ml 1 GM/250 ML BAG IVPB SCH (14:34)
--- NOTE | 2017-05-04 17:08 | MRI ---
PROCEDURE: MRI Left Wrist HISTORY: Pain, retained foreign body. COMPARISON: Left wrist MRI without and with contrast TECHNIQUE: Multiecho multiplanar sequences were performed through the left wrist without the use of intravenous contrast. Post gadolinium enhanced imaging was also performed following intravenous contrast administration in multiple planes. FINDINGS: SCAPHOLUNATE LIGAMENT: Intact. LUNOTRIQUETRAL LIGAMENT: Not clearly identified. TRIANGULAR FIBROCARTILAGE: Intact without definite tear. CARPAL TUNNEL: Median nerve preserved. Flexor tendons and retinaculum are normal. GUYON'S CANAL: Ulnar nerve preserved. EXTENSOR COMPARTMENTS: Extensor tendons normal. BONES: No fracture. Normal marrow signal. No evidence to suggest osteomyelitis at this time. JOINT FLUID: None. ULNAR VARIANCE: None. OTHER FINDINGS: Evaluation local soft tissues reveals tremendous cellulitis affecting the dorsal soft tissues of the wrist diffusely extending into the visualized dorsal left hand soft tissues as well. There is an irregular fluid collection appreciated at the midline to lateral dorsal wrist soft tissues measuring approximately 3.1 x 1.3 by 2.5 cm (traverse by anteroposterior by superoinferior dimensions). The largest solitary collection within this irregular collection measures 1.2 cm greatest dimension. This likely represents a small abscess. Smaller nonspecific fluid collections are seen in the deep or dorsal soft tissues overlying the extensor digitorum longus and brevis tendons at the 2nd and 3rd digits but not intimately associated with the tendons specifically. Trace similar changes overlie the 4th extensor digitorum and longus tendon sheath. The lack of significant signal dephasing excludes a ferromagnetic retained foreign body though other foreign bodies including trace debris within injected fluid (for instance) would be difficult to completely exclude. None. IMPRESSION: 1. No ferromagnetic retained foreign body appreciable. 2. Small abscesses seen in the dorsal distal wrist soft tissues 3.1 cm greatest dimension comprised of multiple presumed interconnecting fluid collections, the largest measuring 1.2 cm. Three tiny crescentic fluid collections overlies the 2nd 3rd and 4th extensor digitorum brevis and longus tendon sheaths without direct tendon involvement.
[2017-05-05] MEDS: Vancomycin 1gm in NS 250ml 1 GM/250 ML BAG IVPB SCH ×2 (02:48→16:37)
--- NOTE | 2017-05-05 05:32 | CON ---
DATE: 05/04/2017 HISTORY OF PRESENT ILLNESS: This is a 32-year-old female with past medical history significant for asthma, hepatitis C, active IV drug abuser, heroin and cocaine, history of bipolar disorder, history of pyelonephritis, history of right ankle arthritis, history of vaginal bleeding after , who was admitted on this admission with infection of the left hand, which she shot intravenous drug. REVIEW OF SYSTEMS: Reveals the patient has no fevers, no chills, no chest pain, no abdominal pain, diarrhea, or constipation. No headaches or blurred vision. PAST MEDICAL HISTORY: Significant for the patient had a vaginal bleeding after an four months ago, history of asthma, hepatitis C, bipolar, active intravenous drug abuse of heroin and cocaine and pyelonephritis, and right ankle cellulitis. The patient's past medical history is also significant for MRSA bacteremia four months ago in month of December 2016. PAST SURGICAL HISTORY: Significant for D&C and bladder surgery. PHYSICAL EXAMINATION: GENERAL: She is Cachectic, poor historian. VITAL SIGNS: The patient is in bed with a temperature of 99.9 with a heart rate of 97, respiratory rate of 20, blood pressure is 113/70, saturating 93% oxygenation. HEENT: Unremarkable. NECK: Supple. LUNGS: Decreased breath sounds. HEART: Normal S1 and S2. ABDOMEN: Soft, nontender. LABORATORY DATA: Reveals a white count of 7.5, hemoglobin of 8, platelets of 167. Chemistry reveals the patient has a C-reaction protein is elevated. BUN of 8, creatinine 0.5, procalcitonin is 0.32. Toxicology reveals the urine opiate screen is positive. Benzodiazepine screen is positive. Cocaine metabolizer positive. The patient's HIV is negative. The patient had an MRI of an upper extremity, which is read by Dr. Murtaza Rabago with no foreign body appreciated. Small abscess seen in the dorsal aspect. Fluid collection over the second and third midfoot extensor and x-ray of the hand is noted. ASSESSMENT AND PLAN: This is a 32-year-old female with hepatitis C, asthma, active intravenous drug abuser, bipolar, history of pyelonephritis, history of methicillin-resistant Staphylococcus aureus bacteremia, history of right ankle cellulitis, history of vaginal bleeding after now presenting with the left hand abscess and cellulitis. The left hand has incision and drainage. Examination of the hand reveals a packing. The patient has full flexion and extension of the fingers, abscess drain shows a gram-positive cocci. I will treat the patient with vancomycin. We will check on a culture results. Recommend HIV testing intermittently if the patient continues to use intravenous drugs just from today, had no growth. We will check on the blood cultures. I doubt endocarditis. If the patient is not having any fevers, however, we will check on the blood cultures. Continue the vancomycin. We will make further recommendations. Dennis Luna MD
[2017-05-05] MEDS: Pantoprazole 40 mg EC Tab PO SCH ×2 (06:12→06:43)
--- NOTE | 2017-05-05 06:34 | CP.PCM.PN ---
<Juarez Serranoima - Last Filed: 05/05/17 15:38> Subjective - Date & Time of Evaluation Date of Evaluation: 05/05/17 Time of Evaluation: 09:00 - Subjective Subjective: PGY2 Medicine note for Dr. Hernandez Patient seen and examined at bedside. Patient is POD#1 bedside I&D. Patient was guarded when answering questions but reported pain had improved. She denied any subjective fever, chills, chest pain, SOB, abdominal pain, and signs of withdrawal. She was not eager to disclose any more information. Objective - Vital Signs/Intake and Output Vital Signs (last 24 hours): Temp Pulse Resp BP Pulse Ox 97.3 F L 83 20 111/60 96 05/04/17 23:00 05/04/17 23:00 05/04/17 23:00 05/04/17 23:00 05/04/17 23:00 Intake and Output: 05/04/17 05/05/17 18:59 06:59 Intake Total 660 Balance 660 - Medications Medications: Current Medications Acetaminophen (Tylenol 325mg Tab) 650 mg PO Q6H PRN PRN Reason: Pain, moderate (4-7) Last Admin: 05/04/17 17:37 Dose: 650 mg Ferrous Sulfate (Feosol) 324 mg PO TID [place] Last Admin: 05/04/17 17:35 Dose: 324 mg Vancomycin HCl (Vancomycin 1gm) 1 gm in 250 mls @ 167 mls/hr IVPB Q12H [place] PRN Reason: Protocol Last Admin: 05/05/17 02:48 Dose: 167 mls/hr Lactobacillus Acidophilus (Bacid Acidophilus) 1 cap PO BID [place] Last Admin: 05/04/17 17:35 Dose: 1 cap Levofloxacin/Dextrose (Levaquin 750mg) 750 mg IVPB Q24H [place] Last Admin: 05/04/17 08:34 Dose: 750 mg Lorazepam (Ativan) 2 mg IVP Q6H PRN; Protocol PRN Reason: Seizure activity Pantoprazole Sodium (Protonix Ec Tab) 40 mg PO 0600 [place] Last Admin: 05/05/17 06:12 Dose: Not Given - Labs Labs: 05/04/17 06:40 - Constitutional Appears: Non-toxic, Unkempt - Eye Exam Eye Exam: EOMI, Normal appearance. absent: Conjunctival injection, Scleral icterus - ENT Exam ENT Exam: Mucous Membranes Moist - Respiratory Exam Respiratory Exam: Clear to Ausculation Bilateral, NORMAL BREATHING PATTERN. absent: Accessory Muscle Use, Rales, Rhonchi, Wheezes, Respiratory Distress - Cardiovascular Exam Cardiovascular Exam: REGULAR RHYTHM, RRR, +S1, +S2 - GI/Abdominal Exam GI & Abdominal Exam: Soft, Normal Bowel Sounds - Extremities Exam Additional comments: left hand dressings c/d/i - Neurological Exam Neurological Exam: Alert, Awake, Oriented x3 - Psychiatric Exam Psychiatric exam: Flat Affect - Skin Skin Exam: Dry, Warm Assessment and Plan - Assessment and Plan (Free Text) Assessment: 32 year old female PMHx IV drug abuse, Hep C, asthma presented with left hand cellulitis Plan: L hand cellulitis - POD#1 bedside I&D - Wound culture: prelim Group C Strep and Gram negative rods - Blood culture: prelim negative x 2 - ESR 26 - CRP >15 - MRI LUE: no ferromagnetic retained foreign body appreciable; small abscesses seen in dorsal distal wrist soft tissue 3.1cm greatest dimension comprised of multiple presumed interconnecting fluid collections, largest measuring 1.2cm. Three tiny crescentic fluid collections overlies the 2nd 3rd and 4th extensor digitorum brevis and longus tendon sheaths without direct tendon involvement - L Hand x-ray: significant dorsal soft tissue swelling consistent with cellulitis. No obvious cortical destructive changes. No evidence of acute displaced fracture or dislocation. - Bactrim DS 1 tab po bid patient has poor IV access so abx changed to Bactrim - Tylenol 650mg po q6 prn pain - Merrem 1gm ivpb q8 [unable to administer due to poor IV access] - Vancomycin 1gm ivpb q12 [unable to administer due to poor IV access] - Consider PICC line insertion Iron deficiency anemia - Anemia panel Iron : 13 TIBC : 309 %sat : 4 Transferrin : 238.9 Ferritin : 32.6 - Feosol 324mg po tid Hx of IV drug abuse - monitor for withdrawal symptoms - Ativan 2mg ivp q6 prn seizure activity - Counseled of cessation Hx of multiple drug abuse - UDS: + Opiates + Benzos + Cocaine - monitor for withdrawal symptoms - Ativan 2mg ivp q6 prn seizure activity - Counseled of cessation Hx of asthma - no acute issues at this time Hx of Hep C - no acute issues at this time GI ppx: Protonix 40mg po daily, Florastor 1 cap po bid DVT ppx: Heparin 5000u sc q12, SCDs Diet: Regular Case discussed with Dr. David Serrano PGY2 <Ventura Hernandez - Last Filed: 05/05/17 16:14> Objective - Vital Signs/Intake and Output Vital Signs (last 24 hours): Temp Pulse Resp BP Pulse Ox 97.9 F 89 22 110/56 L 99 05/05/17 08:37 05/05/17 08:37 05/05/17 08:37 05/05/17 08:37 05/05/17 08:37 Intake and Output: 05/05/17 05/05/17 06:59 18:59 Intake Total 840 760 Balance 840 760 - Medications Medications: Current Medications Acetaminophen (Tylenol 325mg Tab) 650 mg PO Q6H PRN PRN Reason: Pain, moderate (4-7) Last Admin: 05/04/17 17:37 Dose: 650 mg Ferrous Sulfate (Feosol) 324 mg PO TID [facility] Last Admin: 05/05/17 14:07 Dose: 324 mg Heparin Sodium (Porcine) (Heparin) 5,000 units SC Q12 [place] PRN Reason: Protocol Vancomycin HCl (Vancomycin 1gm) 1 gm in 250 mls @ 167 mls/hr IVPB Q12H [place] PRN Reason: Protocol Last Admin: 05/05/17 02:48 Dose: 167 mls/hr Meropenem 1g/NS 100mL IVPB (Meropenem 1g/Ns 100ml Ivpb) 1 gm in 100 mls @ 100 mls/hr IVPB Q8 [place] PRN Reason: Protocol Stop: 05/14/17 14:01 Lactobacillus Acidophilus (Bacid Acidophilus) 1 cap PO BID [facility] Last Admin: 05/05/17 10:10 Dose: 1 cap Lorazepam (Ativan) 2 mg IVP Q6H PRN; Protocol PRN Reason: Seizure activity Pantoprazole Sodium (Protonix Ec Tab) 40 mg PO 0600 [facility] Last Admin: 05/05/17 06:43 Dose: 40 mg Trimethoprim/Sulfamethoxazole (Bactrim Ds Tab) 1 tab PO BID [place] PRN Reason: Protocol - Labs Labs: 05/04/17 06:40 Attending/Attestation - Attestation I have personally seen and examined this patient.: Yes I have fully participated in the care of the patient.: Yes I have reviewed all pertinent clinical information, including history, physical exam and plan: Yes Notes (Text): 05/05/17 16:05 32 year old female with past medical history of hepatitis C, IVDA who presented with left hand cellulitis and abscess. She is s/p bedside I&D. Wound culture is growing gram negative rods and group C strep. She was on iv vanco and meropenem, however due to poor iv access this is switched to po bactrim for now. ID and surgery are following. She was counselled on risks of continued substance abuse. Anemia workup was ordered for anemia. She refused labs this morning. She has history of hepatitis C and was recommended to follow up at [facility] hepatitis clinic. Ventura Hernandez MD Hospitalist.
--- NOTE | 2017-05-05 09:03 | CP.PCM.PN ---
Subjective - Date & Time of Evaluation Date of Evaluation: 05/05/17 Time of Evaluation: 09:00 - Subjective Subjective: Surgery: Dr. Paredes Patient resting comfortably in bed this am; however patient refused to be examined or interviewed stating she didn't sleep enough last night. Objective - Vital Signs/Intake and Output Vital Signs (last 24 hours): Temp Pulse Resp BP Pulse Ox 97.9 F 89 22 110/56 L 99 05/05/17 08:37 05/05/17 08:37 05/05/17 08:37 05/05/17 08:37 05/05/17 08:37 Intake and Output: 05/05/17 05/05/17 06:59 18:59 Intake Total 840 Balance 840 - Medications Medications: Current Medications Acetaminophen (Tylenol 325mg Tab) 650 mg PO Q6H PRN PRN Reason: Pain, moderate (4-7) Last Admin: 05/04/17 17:37 Dose: 650 mg Ferrous Sulfate (Feosol) 324 mg PO TID [facility] Last Admin: 05/04/17 17:35 Dose: 324 mg Vancomycin HCl (Vancomycin 1gm) 1 gm in 250 mls @ 167 mls/hr IVPB Q12H [place] PRN Reason: Protocol Last Admin: 05/05/17 02:48 Dose: 167 mls/hr Lactobacillus Acidophilus (Bacid Acidophilus) 1 cap PO BID [place] Last Admin: 05/04/17 17:35 Dose: 1 cap Levofloxacin/Dextrose (Levaquin 750mg) 750 mg IVPB Q24H [place] Last Admin: 05/04/17 08:34 Dose: 750 mg Lorazepam (Ativan) 2 mg IVP Q6H PRN; Protocol PRN Reason: Seizure activity Pantoprazole Sodium (Protonix Ec Tab) 40 mg PO 0600 [facility] Last Admin: 05/05/17 06:43 Dose: 40 mg - Labs Labs: 05/04/17 06:40 - Constitutional Appears: Non-toxic, No Acute Distress, Other (Patient otherwise refused exam ) Assessment and Plan - Assessment and Plan (Free Text) Assessment: 32 y/o female w/ left hand abscess s/p I&D POD1 Plan: -can remove packing Saturday and place clean dry dressing on top -f/u fluid cultures -cont abx per ID -no further surgical intervention at this time -further recs per Dr. Paredes [facility] PGY3
[2017-05-05] MEDS: levoFLOXacin 750 mg in D5W 150 ML BAG IVPB SCH ×2 (10:10→13:00)
[2017-05-05] MEDS: Lactobacillus Acidophilus 500 MU Cap PO SCH ×2 (10:10→17:33)
--- NOTE | 2017-05-05 13:00 | PN ---
The patient was not seen this morning, she refused examination. I have seen her yesterday and there was swelling in the hand and evidence of some mild infection. I will sign off, please call if necessary. Rojelio Paredes MD
[2017-05-05] MEDS: Meropenem 1g/NS 100mL IVPB 1 GM/100 ML PIGGYBACK IVPB SCH (16:36)
--- NOTE | 2017-05-05 17:16 | PN ---
DATE: 05/05/2017 SUBJECTIVE: The patient is in bed, in no acute distress, seen earlier today. PHYSICAL EXAMINATION: VITAL SIGNS: Temperature is 97, blood pressure is 110/50, respiratory rate of 18. HEENT: Unremarkable. NECK: Supple. LUNGS: Decreased breath sounds. HEART: Normal S1 and S2. ABDOMEN: Soft, nontender. EXTREMITIES: Examination of her hand appears to be improving. LABORATORY DATA: Reveals the patient has a group C Strep in the hand and a Gram-negative gus, which have light growth. The blood cultures are no growth. MEDICATIONS: The patient is currently on vancomycin and Levaquin ASSESSMENT AND PLAN: A 32-year-old female with hepatitis C, asthma, active intravenous drug abuser, bipolar, history of pyelonephritis, history of methicillin-resistant Staphylococcus aureus bacteremia, history of right ankle cellulitis, history of vaginal bleeding after an , now presenting with left hand abscess with a group C Streptococcus and a Gram-negative gus, on meropenem and vancomycin. We will just continue Levaquin, but check on the identification of Gram-negative gus, and we will make further recommendations. Dennis Luna MD
[2017-05-05] MEDS: Tmp-Smz 800 mg-160 mg DS Tab PO SCH (17:33)
[2017-05-06] MEDS: Meropenem 1g/NS 100mL IVPB 1 GM/100 ML PIGGYBACK IVPB SCH ×3 (00:51→19:17)
[2017-05-06] MEDS: Vancomycin 1gm in NS 250ml 1 GM/250 ML BAG IVPB SCH ×2 (02:00→19:17)
[2017-05-06] MEDS: Pantoprazole 40 mg EC Tab PO SCH ×2 (06:00→07:31)
[2017-05-06 08:16] VITALS: BP 100/51; PULSE 73; RESP 18; TEMP 97.9; O2SAT 95
[2017-05-06] MEDS: Lactobacillus Acidophilus 500 MU Cap PO SCH (09:40)
[2017-05-06] MEDS: Tmp-Smz 800 mg-160 mg DS Tab PO SCH (09:40)
--- NOTE | 2017-05-06 21:01 | CP.PCM.DIS ---
<[place]abela[place]illipsburg - Last Filed: 05/08/17 18:41> Provider - Provider Date of Admission: 05/04/17 02:37 Attending physician: Ricci Presley MD Time Spent in preparation of Discharge (in minutes): 30 Diagnosis - Discharge Diagnosis (1) Acute asthma exacerbation Status: Chronic Priority: Medium (2) Cellulitis Status: Acute Priority: High (3) Drug abuse Status: Chronic Priority: Medium Hospital Course - Lab Results Lab Results: Micro Results 05/04/17 04:44 Abscess - Hand-Left Gram Stain - Final 05/04/17 04:44 Abscess - Hand-Left Wound Culture - Final Group C Streptococcus Pseudomonas Aeruginosa Most Recent Lab Values WBC 7.5 10^3/ul (4.5-11.0) D 05/04/17 01:29 RBC 4.04 10^6/uL (3.5-6.1) 05/04/17 01:29 Hgb 8.4 g/dL (12.0-16.0) L 05/04/17 01:29 Hct 26.0 % (36.0-48.0) L 05/04/17 01:29 MCV 64.4 fl (80.0-105.0) L 05/04/17 01:29 MCH 20.8 pg (25.0-35.0) L 05/04/17 01:29 MCHC 32.3 g/dl (31.0-37.0) 05/04/17 01:29 RDW 15.7 % (11.5-14.5) H 05/04/17 01:29 Plt Count 167 10^3/uL (120.0-450.0) 05/04/17 01:29 MPV 10.0 fl (7.0-11.0) 05/04/17 01:29 Gran % 53.4 % (50.0-68.0) 05/04/17 01:29 Lymph % (Auto) 37.6 % (22.0-35.0) H 05/04/17 01:29 Boyd % (Auto) 5.3 % (1.0-6.0) 05/04/17 01:29 Eos % (Auto) 3.6 % (1.5-5.0) 05/04/17 01:29 Baso % (Auto) 0.1 % (0.0-3.0) 05/04/17 01:29 Gran # 4.02 (1.4-6.5) 05/04/17 01: Lymph # 2.8 (1.2-3.4) 05/04/17 01:29 Boyd # 0.4 (0.1-0.6) 05/04/17 01:29 Eos # 0.3 (0.0-0.7) 05/04/17 01:29 Baso # 0.01 K/mm3 (0.0-2.0) 05/04/17 01:29 ESR 26 mm/hr (0.0-20.0) H 05/04/17 11:50 Sodium 139 mmol/L (132-148) 05/04/17 01:29 Potassium 3.6 mmol/L (3.6-5.0) 05/04/17 06:40 Chloride 101 mmol/L (98-107) 05/04/17 01:29 Carbon Dioxide 25 mmol/L (21-33) 05/04/17 01:29 Anion Gap 18 (10-20) 05/04/17 01:29 BUN 8 mg/dL (7-21) 05/04/17 01:29 Creatinine 0.5 mg/dL (0.5-1.4) 05/04/17 01:29 Est GFR ( Amer) > 60 05/04/17 01:29 Est GFR (Non-Af Amer) > 60 05/04/17 01:29 Random Glucose 88 mg/dL (70-110) 05/04/17 01:29 Calcium 9.5 mg/dL (8.4-10.5) 05/04/17 01:29 Iron 13 ug/dL (45-180) L 05/04/17 Unknown TIBC 309 ug/dL (265-497) 05/04/17 Unknown % Saturation 4 % (20-55) L 05/04/17 Unknown Transferrin 238.90 mg/dL (206-381) 05/04/17 08:09 Ferritin 32.6 ng/mL 05/04/17 08:09 Total Bilirubin 0.6 mg/dL (0.2-1.3) 05/04/17 01:29 AST 36 U/L (15-39) 05/04/17 01:29 ALT 23 U/L (7-56) 05/04/17 01:29 Alkaline Phosphatase 69 U/L (38-133) 05/04/17 01:29 C-React Prot High Sens > 15.00 mg/L (1.00-3.00) H 05/04/17 12:30 Total Protein 8.1 g/dL (5.8-8.3) 05/04/17 01:29 Albumin 4.2 g/dL (3.0-4.8) 05/04/17 01:29 Globulin 3.9 gm/dL 05/04/17 01:29 Albumin/Globulin Ratio 1.1 (1.1-1.8) 05/04/17 01:29 Vitamin B12 332 pg/mL (239-931) 05/04/17 08:09 Procalcitonin 0.32 NG/ML (0.19-0.49) 05/04/17 11:02 Beta HCG, Quant < 2.39 mIU/mL (0-6.15) 05/04/17 01:29 Urine Opiates Screen Positive (NEGATIVE) H 05/04/17 07:00 Urine Methadone Screen Negative (NEGATIVE) 05/04/17 07:00 Ur Barbiturates Screen Negative (NEGATIVE) 05/04/17 07:00 Ur Phencyclidine Scrn Negative (NEGATIVE) 05/04/17 07:00 Ur Amphetamines Screen Negative (NEGATIVE) 05/04/17 07:00 U Benzodiazepines Scrn Positive (NEGATIVE) H 05/04/17 07:00 U Oth Cocaine Metabols Positive (NEGATIVE) H 05/04/17 07:00 U Cannabinoids Screen Negative (NEGATIVE) 05/04/17 07:00 HIV 1&2 Antibody Screen Negative (NEGATIVE) 05/04/17 07:40 - Hospital Course Hospital Course: This is a 32 yr old IV drug abuser with a past medical history significant of HCV and asthma who presents with a large, abscess on the dorsum of the left hand. She states one week ago she tried shooting heroin in the left hand, missed the vein and instead infiltrated elsewhere. Initially the pain was moderate enough for her to carry out her daily functions; however, in the past two days the area she inoculated has become increasingly red, painful, raised and inflamed. Nothing she does relieves the pain, movement of the intrinsic hand muscles worsens it, and it is constant, throbbing and scaled 10/10 in severity, and non-radiating. She denies any numbness or loss of motor activity to the left limb. She further denies to having any fever, chills, chest pain, dyspnea, palpitations, or other skin lesions. Patient had an I&D done on her initial arrival to the [facility]. where initial growth cultures showed Group C Strep and Gram negative rods. She was initially started on Meropenem and Vancomycin. However on 05/05 the antibiotic was changed to Bactrim. While she was here she was seen by surgery (Dr. Paredes) and ID(Dr. Luna). The patient refused to be seen by Dr. Paredes and Dr. Luna wanted to get the final cultures back before changing the antibiotic regimen to rule out possible endocarditits infection. We also held placing a PICC line until the final cultures came back. Patient was instructed to follow up with PMD within one week and continue all of her home medications. She was prescribed Ferrous Sulfate 325mg PO BID and Levofloxacin 500 mg PO Daily. She also received a surgical referral to Dr. Paredes and a PMD referrral to Dr. Tavera. Patient expressed she fully understood the instructions and was discharged. - Date & Time of H&P Date of H&P: 05/06/17 Time of H&P: 08:30 Discharge Exam - Head Exam Head Exam: ATRAUMATIC, NORMAL INSPECTION, NORMOCEPHALIC - Eye Exam Eye Exam: EOMI, Normal appearance, PERRL. absent: Periorbital tenderness Pupil Exam: NORMAL ACCOMODATION, PERRL. absent: Irregular - ENT Exam ENT Exam: Mucous Membranes Moist, Normal Exam - Respiratory Exam Respiratory Exam: Clear to PA & Lateral, NORMAL BREATHING PATTERN, UNREMARKABLE. absent: Chest Wall Tenderness, Respiratory Distress - Cardiovascular Exam Cardiovascular Exam: REGULAR RHYTHM, RRR, +S1, +S2. absent: Tachycardia, JVD - GI/Abdominal Exam GI & Abdominal Exam: Normal Bowel Sounds. absent: Firm, Guarding - Extremities Exam Extremities exam: full ROM - Back Exam Back exam: NORMAL INSPECTION. absent: CVA tenderness (L), CVA tenderness (R) - Neurological Exam Neurological exam: Alert, CN II-XII Intact, Oriented x3 - Psychiatric Exam Psychiatric exam: Normal Affect, Normal Mood - Skin Additional comments: Healing abscess noted on the left hand wrapped in a bandage. Discharge Plan - Discharge Medications Prescriptions: Ferrous Sulfate 325 mg PO BID #30 tablet Levofloxacin [Levaquin] 500 mg PO DAILY #7 tablet - Follow Up Plan Condition: GOOD Disposition: HOME/ ROUTINE Instructions: Asthma (DC), Asthma (GEN), Cellulitis (DC), Cellulitis (GEN), Cigarette Smoking and Your Health (GEN), Cocaine Abuse (DC), Depression (DC), Hepatitis C (GEN), Sepsis (DC), Sepsis (GEN), Anemia (DC), Anxiety (DC) Additional Instructions: Discharge instructiosn: - Follow up with Dr. Paredes within 1 week. - Follow up with Primary care doctor in 3-5 days - Change dressing of left hand daily Discharge medications: - Levaquin 500mg daily for 7 days - Ferrous sulphate 325mg BID Discharge diagnoses: - Cellulitis of left hand - iron deficiency anemia Referrals: Ora Tavera MD [Family Provider] - Rojelio Paredes MD [Staff Provider] - Clinical Quality Measures - Date & Time of Discharge Summary Date of Discharge Summary: 05/06/17 Time of Discharge Summary: 15:19 <Sakina DALE,Ricci - Last Filed: 05/11/17 11:19> Provider - Provider Date of Admission: 05/04/17 02:37 Attending physician: Ricci Presley MD Hospital Course - Lab Results Lab Results: Micro Results 05/04/17 04:44 Abscess - Hand-Left Gram Stain - Final 05/04/17 04:44 Abscess - Hand-Left Wound Culture - Final Group C Streptococcus Pseudomonas Aeruginosa Most Recent Lab Values WBC 7.5 10^3/ul (4.5-11.0) D 05/04/17 01:29 RBC 4.04 10^6/uL (3.5-6.1) 05/04/17 01:29 Hgb 8.4 g/dL (12.0-16.0) L 05/04/17 01: Hct 26.0 % (36.0-48.0) L 05/04/17 01:29 MCV 64.4 fl (80.0-105.0) L 05/04/17 01:29 MCH 20.8 pg (25.0-35.0) L 05/04/17 01:29 MCHC 32.3 g/dl (31.0-37.0) 05/04/17 01: RDW 15.7 % (11.5-14.5) H 05/04/17 01: Plt Count 167 10^3/uL (120.0-450.0) 05/04/17 01:29 MPV 10.0 fl (7.0-11.0) 05/04/17 01: Gran % 53.4 % (50.0-68.0) 05/04/17 01:29 Lymph % (Auto) 37.6 % (22.0-35.0) H 05/04/17 01: Boyd % (Auto) 5.3 % (1.0-6.0) 05/04/17 01: Eos % (Auto) 3.6 % (1.5-5.0) 05/04/17 01: Baso % (Auto) 0.1 % (0.0-3.0) 05/04/17 01: Gran # 4.02 (1.4-6.5) 05/04/17 01: Lymph # 2.8 (1.2-3.4) 05/04/17 01: Boyd # 0.4 (0.1-0.6) 05/04/17 01: Eos # 0.3 (0.0-0.7) 05/04/17 01: Baso # 0.01 K/mm3 (0.0-2.0) 05/04/17 01: ESR 26 mm/hr (0.0-20.0) H 05/04/17 11:50 Sodium 139 mmol/L (132-148) 05/04/17 01:29 Potassium 3.6 mmol/L (3.6-5.0) 05/04/17 06:40 Chloride 101 mmol/L (98-107) 05/04/17 01:29 Carbon Dioxide 25 mmol/L (21-33) 05/04/17 01:29 Anion Gap 18 (10-20) 05/04/17 01:29 BUN 8 mg/dL (7-21) 05/04/17 01:29 Creatinine 0.5 mg/dL (0.5-1.4) 05/04/17 01:29 Est GFR ( Amer) > 60 05/04/17 01:29 Est GFR (Non-Af Amer) > 60 05/04/17 01:29 Random Glucose 88 mg/dL (70-110) 05/04/17 01:29 Calcium 9.5 mg/dL (8.4-10.5) 05/04/17 01:29 Iron 13 ug/dL (45-180) L 05/04/17 Unknown TIBC 309 ug/dL (265-497) 05/04/17 Unknown % Saturation 4 % (20-55) L 05/04/17 Unknown Transferrin 238.90 mg/dL (206-381) 05/04/17 08:09 Ferritin 32.6 ng/mL 05/04/17 08:09 Total Bilirubin 0.6 mg/dL (0.2-1.3) 05/04/17 01:29 AST 36 U/L (15-39) 05/04/17 01:29 ALT 23 U/L (7-56) 05/04/17 01:29 Alkaline Phosphatase 69 U/L (38-133) 05/04/17 01:29 C-React Prot High Sens > 15.00 mg/L (1.00-3.00) H 05/04/17 12:30 Total Protein 8.1 g/dL (5.8-8.3) 05/04/17 01:29 Albumin 4.2 g/dL (3.0-4.8) 05/04/17 01:29 Globulin 3.9 gm/dL 05/04/17 01:29 Albumin/Globulin Ratio 1.1 (1.1-1.8) 05/04/17 01:29 Vitamin B12 332 pg/mL (239-931) 05/04/17 08:09 RBC Folate 493 ng/mL RBC (>280) 05/04/17 08:09 Procalcitonin 0.32 NG/ML (0.19-0.49) 05/04/17 11:02 Beta HCG, Quant < 2.39 mIU/mL (0-6.15) 05/04/17 01:29 Urine Opiates Screen Positive (NEGATIVE) H 05/04/17 07:00 Urine Methadone Screen Negative (NEGATIVE) 05/04/17 07:00 Ur Barbiturates Screen Negative (NEGATIVE) 05/04/17 07:00 Ur Phencyclidine Scrn Negative (NEGATIVE) 05/04/17 07:00 Ur Amphetamines Screen Negative (NEGATIVE) 05/04/17 07:00 U Benzodiazepines Scrn Positive (NEGATIVE) H 05/04/17 07:00 U Oth Cocaine Metabols Positive (NEGATIVE) H 05/04/17 07:00 U Cannabinoids Screen Negative (NEGATIVE) 05/04/17 07:00 HIV 1&2 Antibody Screen Negative (NEGATIVE) 05/04/17 07:40 Attending/Attestation - Attestation I have personally seen and examined this patient.: Yes I have fully participated in the care of the patient.: Yes I have reviewed all pertinent clinical information, including history, physical exam and plan: Yes Notes (Text): 05/11/17 11:17 Patient was seen and examined with medical coder. Agreed with resident assessment and plan. 32 year old female with past medical history of hepatitis C, IVDA who presented with left hand cellulitis and abscess. She is s/p bedside I&D. Wound culture is growing gram negative rods and group C strep sensitive to Levofloxacin.Blood cultures are negative for any growth. Patient is feeling better and will be discharged home and will follow up with PCP and Surgery. Management plan was discussed in detail with patient Education was provided. 05/11/17 11:19
--- NOTE | 2017-05-07 01:19 | PN ---
DATE: 05/06/2017 SUBJECTIVE: The patient is in bed, in no acute distress, nontoxic. PHYSICAL EXAMINATION VITAL SIGNS: Temperature is 97, blood pressure is 100/50, respiratory rate of 20 and heart rate of 81. HEENT: Unremarkable. NECK: Supple. LUNGS: Decreased breath sounds. HEART: Normal S1 and S2. ABDOMEN: Soft. EXTREMITIES: Examination of hand is much improved. LABORATORY DATA: Blood culture; no growth and the abscess culture group C strep and Pseudomonas aeruginosa. Microbiology is noted and white count is noted. ASSESSMENT AND PLAN: This is a 32-year-old female active intravenous drug abuser with history of asthma and hepatitis C, history of pyelonephritis and history of methicillin-resistant Staphylococcus aureus bacteremia, history of right ankle cellulitis, history of vaginal bleeding after , now presenting with left hand abscess with group C streptococcus and Pseudomonas. Discontinue with Cipro case discussed with resident on the case. Dennis Luna MD
== END 2017-05-06 18:00 | disposition home or self-care (01) | DRG 277 ==
LOC: ED 00:51 → ERH 02:37 → 5RSO 05:21
PROVIDERS: ADMIT Hospitalist; ATTEND Internal Medicine
PROC: 0H9GXZZ Drainage of Left Hand Skin, External Approach (ICD-10-PCS; principal; 2017-05-04)
DX: L03.114 Cellulitis of left upper limb (principal); B96.5 Pseudomonas (aeruginosa) (mallei) (pseudomallei) as the cause of diseases classified elsewhere; J45.901 Unspecified asthma with (acute) exacerbation; F11.10 Opioid abuse, uncomplicated; L02.512 Cutaneous abscess of left hand; F14.10 Cocaine abuse, uncomplicated; D50.9 Iron deficiency anemia, unspecified; B19.20 Unspecified viral hepatitis C without hepatic coma; B95.4 Other streptococcus as the cause of diseases classified elsewhere; F31.9 Bipolar disorder, unspecified; F17.210 Nicotine dependence, cigarettes, uncomplicated; Z86.14 Personal history of Methicillin resistant Staphylococcus aureus infection